=== PATIENT | female | born 1950 | race Caucasian/White ===

== ENCOUNTER 2020-01-19 00:55 | Outpatient (CLI) | payer MEDICARE, OTHER, SELFPAY ==
[2020-01-19 18:05] LABS: SARS-CoV-2 RNA PCR Negative
== END 2020-01-19 00:56 | disposition home or self-care (01) ==
LOC: ANHCOVIDDT 00:56
PROVIDERS: PCP Family Medicine; Visit Provider Internal Medicine Cardiovascular Disease
DX: Z01.812 Encounter for preprocedural laboratory examination (principal); Z11.59 Encounter for screening for other viral diseases
CPT/HCPCS: 87635; C9803; U0003

== ENCOUNTER 2020-01-22 11:25 | Outpatient (CLI) | payer MEDICARE, OTHER, SELFPAY ==
[2020-01-19 12:40] VITALS: BMI 37.8
--- NOTE | 2020-01-22 11:30 | ECG_ITS ---
Measurements Intervals [place] Rate: 71 P: 51 VA: 194 QRS: 3 QRSD: 94 T: 22 QT: 375 QTc: 410 Interpretive Statements SINUS RHYTHM BORDERLINE R WAVE PROGRESSION, ANTERIOR LEADS MINIMAL Q WAVES- INFERIOR LEADS BORDERLINE ECG Electronically Signed On 01-22-2020 13:29:10 CDT by Ed Turner D.O.
--- NOTE | 2020-01-22 11:30 | SUR.PREOP ---
ARRIVES TO [facility] AMB[facility] FROM OP REGISTRATION FOR SCHEDULED CARDIOVERSION W/ DR. PATHAK. DENIES CP OR SOB ON ARRIVAL. ORIENTED TO ROOM, PLAN OF CARE, PROCEDURE. PRE PROCEDURE EKG COMPLETED; EKG SHOWS SINUS RHYTHM. WILL NOTIFY DR. PATHAK.
--- NOTE | 2020-01-22 11:55 | SUR.PREOP ---
NOTIFIED DR. PATHAK OF EKG RESULTS SHOWING SINUS RHYTHM. STATES OK FOR PT. TO GO HOME, BUT TO KEEP ALREADY SCHEDULED FOLLOW UP APPOINTMENT WITH HIM ON FEBRUARY 15, 2020 AT 1345, CONTINUE CURRENT MEDICATIONS INCLUDING ELIQUIS AND METOPROLOL. THIS RN NOTIFIED PT. OF SUCH AND REVIEWED HOW TO CHECK RADIAL PULSE TO CHECK HEART RATE AND REGULARITY. PT. VOICED UNDERSTANDING AND DEMONSTRATED PULSE CHECK.
--- NOTE | 2020-01-22 12:15 | SUR.PREOP ---
CARDIOVERSION CANCELLED DUE TO PT. BEING IN SINUS RHYTHM ON INITIAL EKG CHECK. PT. SENT HOME. OUT AMBULATORY WITHOUT C/O.
== END 2020-01-22 11:26 | disposition home or self-care (01) ==
PROVIDERS: PCP Family Medicine; Visit Provider Internal Medicine Cardiovascular Disease
PROC: 5A2204Z Restoration of Cardiac Rhythm, Single (ICD-10-PCS; principal; 2020-01-22 13:00)
DX: Z01.818 Encounter for other preprocedural examination (principal); R94.31 Abnormal electrocardiogram [ECG] [EKG]
CPT/HCPCS: 93005; 99211; G0463

== ENCOUNTER 2020-03-26 06:32 | Outpatient (CLI) | payer MEDICARE, OTHER, SELFPAY ==
--- NOTE | 2020-03-29 00:42 | SLEEP_ITS ---
Home Sleep Test DATE OF STUDY: 03/26/2020 ORDERING PHYSICIAN: Dr. Rikki Rajan. REASON FOR THE TEST: Hypersomnia. HISTORY: This patient is a 70-year-old woman, 5 feet 4 inches tall, weighing 225 pounds with a body mass index of 38.6. She has complaints of loud snoring, sinus problems, which worsened when she lies down to go to sleep. She frequently snores and occasionally it is loud enough that others complain about it. She occasionally awakens at night with heartburn, belching, or coughing. She occasionally has trouble sleeping with a cold, occasionally gasps for breath at night, occasionally has breathing problems at night witnessed by others. She does not sweat excessively at night or notice her heart pounding excessively at night. She frequently falls asleep during the day, frequently involuntarily, never while driving. She does not fall asleep during physical effort. She does not have loss of muscle tone with strong emotion. She does not have daytime difficulties due to excessive sleepiness. She denies feeling paralyzed on waking or falling asleep and does not have vivid dreamlike scenes upon awakening or falling asleep. She is never afraid to go to sleep. She rarely has nightmares. She occasionally remembers her dreams, frequently has racing thoughts. She rarely feels sad or depressed. She occasionally has anxiety. She does not have muscular tension, notices parts of her body jerking and does not kick at night. She occasionally has crawly achy feelings in her legs. She occasionally has leg pain at night. She denies having morning jaw pain. She does not grind her teeth at night. She frequently is bothered by pain during the day, occasionally is awakened by pain at night. She frequently wakes up feeling stiff in the morning, rarely with sore achy muscles, occasionally with pain in the neck and spine. Normal bedtime is 2 a.m., taking a variable amount of time to fall asleep. She typically wakes once at night to go to the bathroom and goes back to sleep within 5 minutes. She does not have a fixed wake up time. She estimates somewhere between 4 and 7 hours of sleep at night. She sleeps with a cat in the bed. She does take naps. A short nap is not refreshing. She feels better in the evening than other times a day. MEDICAL COMORBIDITIES: Chronic anticoagulation, hypertension, diabetes, thyroid dysfunction, atrial fibrillation, hyperlipidemia. MEDICATIONS: 1. Levothyroxine 0.088 mg daily. 2. Amlodipine 5 mg a day. 3. Amitriptyline 25 mg a day. 4. Atorvastatin 10 mg a day. 5. Glimepiride 1 mg a day. 6. Metoprolol 25 mg b.i.d. 7. Eliquis 5 mg b.i.d. 8. Chlorthalidone 25 mg a day. 9. Lisinopril 40 mg a day. 10. Magnesium oxide 1 tablet twice a day. HABITS: Never smoked tobacco. She does drink tea and Pepsi. No alcohol. No recreational drugs. DESCRIPTION OF THE STUDY: On the Stanford Sleepiness Scale, the score is 10. This was conducted as an unattended type III portable home sleep test using 4-channel monitoring including respiratory effort channel, snoring channel, oxygen saturation channel, and heart rate channel. This study was scored using [facility] guidelines. The apnea-hypopnea index is 35. Oxygen desaturation index is 32. Lowest desaturation is 70%. She had 107 apneas which were all obstructive. She had 176 hypopneas. She had 2803 snoring episodes. She desaturated 256 times and spent 19 minutes or 4% of the study below 88% saturation. Heart rate ranged from 53 to 102. IMPRESSION: 1. This home sleep test shows evidence of severe obstructive sleep apnea syndrome, G47.33, with an AHI of 35, deep sustained desaturation 32 times per hour with a lowest desaturation of 70%, and 19 minutes spent below 88%. This patient is
== END 2020-03-26 06:33 | disposition home or self-care (01) ==
LOC: ANHCSM 15:24
PROVIDERS: PCP Family Medicine; Visit Provider Internal Medicine Cardiovascular Disease
DX: G47.10 Hypersomnia, unspecified (principal); I10 Essential (primary) hypertension
CPT/HCPCS: 95806

== ENCOUNTER 2020-11-28 12:05 | Outpatient (CLI) | payer MEDICARE, SELFPAY ==
[2020-11-28 12:39] LABS: Basophils Percent Auto 0.4 % (0.2-1.2); Eosinophils Absolute Auto 0.2 K/mm3 (0-0.3); Eosinophils Percent Auto 1.9 % (0-4.4); Immature Granulocyte Absolute 0.19 K/mm3 (0.00-0.031); Immature Granulocyte Percent A 1.7 % (0-0.5); Lymphocytes Absolute Auto 1.75 K/mm3 (0.9-3.2); Mean Corpuscular Hemoglobin 29.5 pg (26-34); Mean Corpuscular Volume 95.1 fl (80-100); Mean Platelet Volume 9.5 fl (7.4-10.4); Monocytes Absolute Auto 0.8 K/mm3 (0.1-0.6); Monocytes Percent Auto 7.4 % (2.6-8.5); Neutrophils Percent Auto 72.6 % (45.5-73.1); Platelet Count Result 227 k/mm3 (150-375); Red Blood Count 3.05 M/mm3 (4.2-5.4); Red Cell Distribution Width 12.1 % (11.5-14.5)
[2020-11-28 12:44] LABS: Add Urine Microscopic? YES; Appearance Urine Cloudy (Clear); Bacteria Urine Trace /hpf; Bilirubin Urine Negative (Negative); Blood Urine Negative (Negative); Color Urine Yellow (Yellow); Glucose Urine UA Negative (Negative); Ketones Urine Negative (Negative); Leukocyte Esterase Ur 3+ LEU/UL (NEGATIVE); Mucus Urine Rare /lpf; Nitrate Urine Negative (Negative); Protein Urine 1+ mg/dL (Negative); Specific Grav Ur 1.014 (1.001-1.035); Squamous Epithelial Cell Urine Many /hpf (Few); Urobilinogen Urine Negative mg/dL (<2.0); WBC Urine 51-75 /hpf (0-3)
== END 2020-11-28 12:06 | disposition home or self-care (01) ==
PROVIDERS: PCP Family Medicine; Visit Provider Physician Assistant
DX: M79.674 Pain in right toe(s) (principal); N39.0 Urinary tract infection, site not specified
CPT/HCPCS: 36415; 81001; 84550; 85025; 87086

== ENCOUNTER 2021-01-10 15:39 | Outpatient (CLI) | payer MEDICARE, SELFPAY ==
[2021-01-10 16:06] LABS: Basophils Absolute Auto 0.1 K/mm3 (0.0-0.1); Basophils Percent Auto 0.6 % (0.2-1.2); Eosinophils Absolute Auto 0.2 K/mm3 (0-0.3); Eosinophils Percent Auto 2.5 % (0-4.4); Hematocrit 31.1 % (37.0-47.0); Hemoglobin 9.9 g/dL (12.0-15.0); Immature Granulocyte Absolute 0.06 K/mm3 (0.00-0.031); Immature Granulocyte Percent A 0.7 % (0-0.5); Lymphocytes Absolute Auto 1.54 K/mm3 (0.9-3.2); Lymphocytes Percent Auto 18.3 % (18.3-44.2); Mean Corpuscular HGB Conc 31.8 g/dl (32-36); Mean Corpuscular Hemoglobin 30.4 pg (26-34); Mean Corpuscular Volume 95.4 fl (80-100); Mean Platelet Volume 10.1 fl (7.4-10.4); Monocytes Absolute Auto 0.5 K/mm3 (0.1-0.6); Monocytes Percent Auto 5.7 % (2.6-8.5); Neutrophils Absolute Auto 6.1 K/mm3 (1.3-6.7); Neutrophils Percent Auto 72.2 % (45.5-73.1); Platelet Count Result 205 k/mm3 (150-375); Red Blood Count 3.26 M/mm3 (4.2-5.4); White Blood Count 8.4 K/mm3 (4.5-10.0)
[2021-01-10 17:21] LABS: Folic Acid 6.1 ng/mL (2.76->20)
[2021-01-10 17:23] LABS: Iron 89 ug/dL (37-170)
[2021-01-10 17:36] LABS: Percent Iron Saturation 32 % (20-50)
== END 2021-01-10 15:40 | disposition home or self-care (01) ==
PROVIDERS: PCP Family Medicine; Visit Provider Physician Assistant
DX: D64.9 Anemia, unspecified (principal)
CPT/HCPCS: 36415; 82607; 82728; 82746; 83540; 83550; 85025

== ENCOUNTER 2021-09-03 12:02 | Outpatient (CLI) | payer MEDICARE, SELFPAY ==
--- NOTE | ~2021-09-03 | XR_ITS ---
EXAMINATION: XR hand RT min 3V EXAM DATE: 09/03/2021 12:27 INDICATION: M10.9 - Gout, pain right distal 3rd finger, r/o gouty tophi. TECHNIQUE: Right hand frontal, lateral and oblique projections obtained and reviewed. There is no pr ior study for comparison. FINDINGS: There is juxta-articular erosion at the proximal aspect of the right 3rd distal phalanx, co uld be from gout. There is moderate right 1st carpometacarpal and interphalangeal primary osteoarthri tis. Otherwise mild to moderate polyarticular interphalangeal osteoarthritis and metacarpal phalange al. There are cartilaginous calcifications at the 2nd, 3rd, 5th MCP joints, radiocarpal and triangular fi brocartilage regions. Chondrocalcinosis can be an age related finding, but with other possible etiolo gies including CPPD, parathyroid disorders, hemochromatosis, gout. IMPRESSION: 1. Right 3rd distal phalangeal erosion, another extra-articular and cartilaginous calcifications. Go ut can cause both these findings. 2. Polyarticular osteoarthritis. Reviewed, dictated and finalized at location G. OSITION MIXER IMPRESSION: 1. Right 3rd distal phalangeal erosion, another extra-articular and cartilagin ous calcifications. Gout can cause both these findings. 2. Polyarticular osteoarthritis.
== END 2021-09-03 12:03 | disposition home or self-care (01) ==
LOC: ANHIMG 12:10
PROVIDERS: PCP Family Medicine; Visit Provider Nurse Practitioner Family
DX: M10.9 Gout, unspecified (principal); M19.041 Primary osteoarthritis, right hand
CPT/HCPCS: 73130

== ENCOUNTER 2024-01-28 13:40 | Outpatient (CLI) | payer MEDICARE, SELFPAY ==
--- NOTE | ~2024-01-28 | MM_ITS ---
EXAMINATION: MM screening reginaldo BI w ramin HISTORY: Screening TECHNIQUE: Craniocaudal and mediolateral oblique 3-D tomosynthesis images were obtained and synthetic 2-D images were generated. CAD analysis was submitted and interpreted. COMPARISON: Comparison to multiple prior studies sequentially, with oldest reviewed study dated 08/2015. BREAST PARENCHYMAL COMPOSITION: Not dense: There are scattered areas of fibroglandular density. FINDINGS: There is no evidence of suspicious mass, calcification, or architectural distortion to sugg est malignancy in either breast. There has been no suspicious interval change. IMPRESSION: 1. No mammographic evidence of malignancy. 2. Recommend routine screening mammography in one year. BI-RADS Category 1: Negative Reviewed, dictated and finalized at location B.
== END 2024-01-28 13:41 | disposition home or self-care (01) ==
PROVIDERS: PCP Family Medicine; Visit Provider Family Medicine
DX: Z12.31 Encounter for screening mammogram for malignant neoplasm of breast (principal)
CPT/HCPCS: 77063; 77067

== ENCOUNTER 2024-08-08 15:35 | Outpatient (CLI) | payer MEDICARE, OTHER, SELFPAY ==
--- NOTE | ~2024-08-08 | XR_ITS ---
EXAMINATION: XR chest 2V 08/08/2024 15:59 INDICATION: Cough and shortness of breath PROCEDURE: 2 view chest COMPARISON: No prior studies for comparison. FINDINGS: The lungs are clear. There is a hiatal hernia. The cardiomediastinal silhouette is within n ormal limits. There are no pleural effusions. There is no pneumothorax suspected. IMPRESSION: 1: NO ACUTE CARDIOPULMONARY DISEASE. Reviewed, dictated and finalized at location A. ERCIAL SEWING INSTRUCTOR
--- OUTSIDE RECORDS SUMMARY | 2024-08-08 15:54 | XMS_ITS | Clinical Summary ---
Author Organization [facility] Address [address] [place] [id number] Phone Care Team Providers Care Quill Picking Machine Operator Name Role Phone Maxime Henning MD Primary Care Provider Allergies Active Allergy Reactions Criticality Noted Date Comments Sulfa Antibiotics Rash Low Medications Medication Sig Dispensed Refills Start Date End Date Status aspirin (ST KAYLI) 81 MG EC tablet 1 tab/cap qday 0 10/07/2016 Activ e glipiZIDE (GLUCOTROL) 5 MG tablet 1 tab/cap bid 0 10/20/2015 Active amLODIPine (NORVASC) 5 MG tablet 10/16/2019 Active atorvastatin (LIPITOR) 10 MG tablet 10/16/2019 Active chlorthalidone (HYGROTON) 25 MG tablet 10/16/2019 Active lisinopril (PRINIVIL,ZESTRIL) 40 MG tablet 10/16/2019 Active amitriptyline (ELAVIL) 25 MG tablet 10/16/2019 Active Cholecalciferol (VITAMIN D3) 25 MCG (1000 UT) capsule Take 1,000 Units by mouth daily Active apixaban (ELIQUIS) 5 MG tablet Take 5 mg by mouth 2 times daily Active magnesium oxide (MAG-OX) 400 MG tablet Take 400 mg by mouth 2 times daily 12/14/2019 Active glimepiride (AMARYL) 1 MG tablet TK 1 T PO QAM WITH BREAKFAST. 02/20/2020 Active levothyroxine (SYNTHROID) 88 MCG tablet TK 1 T PO D 03/06/2020 Active MAGnesium-Oxide 400 (241.3 Mg) MG tablet TK 1 T PO BID 03/27/2020 A ctive cinnamon 500 MG capsule Take 1,000 mg by mouth daily Active Basaglar KwikPen 100 UNIT/ML injection INJECT 10 UNIT (0.1 ML) SUB Q EVERY PM 08/06/2020 Active BD ULTRA-FINE PEN NEEDLES 29G X 12.7MM misc USE TO INJECT ONCE PER DAY 08/06/2020 Active furosemide (LASIX) 20 MG tablet TAKE 1 TABLET (20 MG TOTAL) BY MOUTH DAILY NEEDED (SWELLING) 10/23/2020 Active metoprolol tartrate (LOPRESSOR) 50 MG tablet Take 50 mg by mouth 2 (two) times a day 10/23/2020 Active Accu-Chek Coreen Plus test strip 03/14/2021 Active Febuxostat (ULORIC) 40 MG tablet Take 40 mg by mouth 1 (one) time each day 01/01/2022 Active ondansetron (ZOFRAN) 4 MG tablet TAKE 1 TABLET BY MOUTH EVERY 6 HOURS NEEDED FOR NAUSEA OR VOMITING 11/27/2021 Active Ozempic, 0.25 or 0.5 MG/DOSE, 2 MG/1.5ML solution pen-injector ADMINISTER 0.5 MG UNDER THE SKIN WEEKLY FOR 4 DOSES 02/04/2022 Active Active Problems Problem Noted Date Diagnosed Date Morbid (severe) obesity due to excess calories 0 11/04/2021 Obstructive sleep apnea syndrome 06/20/2020 Hypomagnesemia 02/15/2020 Long-term current use of anticoagulant 0 Atrial fibrillation 12/13/2019 Diabetic dyslipidemia associ ated with type 2 diabetes mellitus 12/13/2019 Hypertensive disorder 12/13/2019 Chronic kidney disease, stage 3 (moderate) 10/19 Hypertensive chronic kidney disease with stage 1 through stage 4 chronic kidney disease, or unspecified chronic kidney disease 10/20/2015 Type 2 diabetes mellitus wit h diabetic chronic kidney disease 10/20/2015 Fibromyalgia 10/20/2015 Other hyperlipidemia 10/20/2015 Overview (09/24/2018): Converted unresolved ICD9, potential mismatch. Other hyperlipidemia 10/20/2015 Overview (12/18/2020): Converted unresolved ICD9, potential mismatch. Diarrhea 08/17/2013 Hematochezia 12/02/2012 Hip pain 11/08/2012 Knee pain 11/08/2012 Gastroesophageal reflux disease 02/11/2012 Hypothyroidism 02/11/2012 Immunizations Name Administration Dates Next Due Influenza TIV (IM) 05/20/2016 Pneumococcal Conjugate 13-Valent 06/05/2018 Sars-cov-2, Unspecified 09/03/2020 Family History Medical History Relation Comments Coronary arteriosclerosis Father Heart disease Father Hypertensive disorder Father Malignant neoplastic disease Father Cerebrovascular accident Sibling Diabetes mellitus Sibling Hypertensive disorder Sibling Malignant neoplastic disease Sibling Kidney disease Neg Hx Kidney stone Neg Hx Relation Status Comments Father Sibling Social History Tobacco Use Types Packs/Day Years Used Date Smoking Tobacco: Never Smokeless Tobacco: Never Alcohol Use Standard Drinks/Week Comments No 0 (1 standard drink = 0.6 oz pur e alcohol) Sex and Gender Information Value Date Recorded Sex Assigned at Not on file Gender Identity Not on file Sexual Orientation Not on file Last Filed Vital Signs Vital Sign Reading Time Taken Comments Blood Pressure 136/72 02/18/2022 3:18 PM CDT Pulse - - Temperature 36.2 ??C (97.2 ??F) 02/18/2022 3:18 PM CD T Respiratory Rate 18 02/18/2022 3:18 PM CDT Oxygen Saturation - - Inhaled Oxygen Concentration - - Weight 102 kg (225 lb) 02/18/2022 3:18 PM CDT Height 160 cm (5' 3 ) 02/18/2022 3:18 PM CDT Body Mass Index 39.86 02/18/2022 3:18 PM CDT Plan of Treatment Health Maintenance Due Date Last Done Comments Pneumococcal PPSV23/PCV13 65 + Years / Low and Medium Risk (2 of 3 - PPSV23 or PCV20) 06/05/2019 06/05/2018 Influenza Vaccine (#1) 2024 05/20/2016 Care Teams Quill Picking Machine Operator Relationship Specialty Start Date End Date Maxime Henning MD [address] [facility] [address] [place] [id number] PCP - General Internal Medicine 11/15/18
--- OUTSIDE RECORDS SUMMARY | 2024-08-08 15:55 | XMS_ITS | Referral Summary ---
Author Organization [facility] [place] [address] Address [address] [place] [address] Care Team Providers Care Credit Collections Specialist Name Role Phone Maxime Henning MD Primary Care Provider Allergies Active Allergy Reactions Criticality Noted Date Comments Sulfa (Sulfonamide Antibiotics) Rash Medium 08/2011 Medications glimepiride (AMARYL) 1 mg tabletIndications:t ype 2 diabetes mellitus Take 2 tablets (2 mg total) by mouth daily before breakfast Active atorvastatin (LIPITOR) 10 mg tablet Take 1 tablet (10 mg total) by mouth daily Active esomeprazole DR (NexIUM) 20 mg capsule Take 1 capsule (20 mg total) by mouth daily before breakfast Active amitriptyline (ELAVIL) 25 mg tablet TK 1 T PO HS 01/02/20 20 Active cinnamon bark 500 mg capsule Take 2 capsules (1,000 mg total) by mouth daily Active echinacea 400 mg capsule Take 2 capsules by mouth daily Active ascorbic acid (VITAMIN C) 250 mg tablet Take 1 tablet (250 mg total) by mouth daily Active Eliquis 5 mg tabletIndications:P aroxysmal atrial fibrillation (CMS/HCC) (HCC),Chronic anticoagulation TAKE 1 TABLET BY MOUTH TWICE A DAY 180 tablet 3 08/14/19 21 Active BASAGLAR 100 unit/mL (3 mL) pen for injection 10/14/19 21 Active furosemide (LASIX) 20 mg tabletIndications:H ypertension associated with diabetes (HCC) TAKE 1 TABLET BY MOUTH EVERY DAY NEEDED FOR SWELLING 90 tablet 2 07/01/20 21 Active febuxostat (ULORIC) 40 mg tablet Take 1 tablet (40 mg total) by mouth daily 01/02/20 22 Active Ozempic 0.25 mg or 0.5 mg(2 mg/1.5 mL) pen injector injection ADMINISTER 0.25 MG UNDER THE SKIN WEEKLY FOR 4 DOSES 12/26/19 22 Active metoprolol tartrate (LOPRESSOR) 50 mg immediate release tabletIndications:P aroxysmal atrial fibrillation (CMS/HCC) (HCC) Take 1 tablet (50 mg total) by mouth 2 (two) times a day 180 tablet 3 01/07/20 22 Active levothyroxine (SYNTHROID) 100 mcg tablet Take 1 tablet (100 mcg total) by mouth daily 12/17/19 23 Active UNABLE TO FIND Take 1 each by mouth 2 (two) times a day Ginko Biloba 3000 mg Active dilTIAZem CD 120 mg 24 hr capsuleIndications: Persistent atrial fibrillation (HCC) TAKE 1 CAPSULE(120 MG) BY MOUTH DAILY 30 capsule 11 03/27/20 24 Active Active Problems Problem Noted Date Diagnosed Date Syncope and collapse 09/09/2023 Morbid (severe) obesity due to excess calories 0 11/04/2021 LUZ MARIA (obstructive sleep apnea) 06/20/2020 Chronic anticoagulation 02/15/2020 Hypomagnesemia 02/15/2020 Gastroesophageal reflux disease 12/13/2019 Hyperlipidemia associated with type 2 diabetes m ellitus 12/13/2019 Hypertension associated with diabetes 12/13/2019 Persistent atrial fibrillation 12/13/2019 Type 2 diabetes mellitus wit h stage 4 chronic kidney disease and hypertension (CMS/HCC) 12/13/2019 Social History Tobacco Use Types Packs/Day Years Used Date Smoking Tobacco: Never Smokeless Tobacco: Current Tobacco Cessation:Ready to Q uit: Not Asked; Counseling Given: Not Answered Alcohol Use Standard Drinks/Week Comments Never 0 (1 standard drink = 0.6 oz pur e alcohol) AUDIT-C Answer Date Recorded Q1: How often do you have a drink containing alc ohol? Never 12/13/2019 Average Number of Drinks Not on file 020 Frequency of Binge Drinking Not on file 09/2019 PHQ-2 Answer Date Recorded PHQ-2 Total Score (If total score is 3 or more points, staff should administer the PHQ-9) 0 12/13/2019 Personal Safety Answer Date Recorded Getting School Help Needed Not on file 07/14 Comments Unknown Sex and Gender Information Value Date Recorded Sex Assigned at Not on file Legal Sex Female 9:39 AM SAFETY CONSULTANT Gender Identity Not on file Sexual Orientation Not on file Last Filed Vital Signs Vital Sign Reading Time Taken Comments Blood Pressure 126/68 03/17/2024 10:53 AM CDT Pulse 80 03/17/2024 10:53 AM CDT Temperature 35.8 ??C (96.4 ??F) 12/13/2019 11:58 AM C DT Respiratory Rate - - Oxygen Saturation 96% 03/17/2024 10:53 AM CDT Inhaled Oxygen Concentration - - Weight 84.8 kg (187 lb) 03/17/2024 10:53 AM CDT Height 162.6 cm (5' 4 ) 03/17/2024 10:53 AM CDT Body Mass Index 32.1 03/17/2024 10:53 AM CDT Plan of Treatment Not on file Procedures Procedure Name Priority Date/Time Associated Diagnosis Comments POCT LIPID PANEL Routine 09/09/2023 1:20 PM SAFETY CONSULTANT Hyperlipidemia associated with type 2 diabetes mellitus (HCC) from Last 3 Months or Most Recently Relevant to Health Maintenance Results * POCT lipid panel (09/09/2023 1:20 PM SAFETY CONSULTANT) Cholesterol, POC 105 mg/dL HDL, POC 31 mg/dL Triglycerides, POC 119 mg/dL LDL Cholesterol POC 51 mg/dL Chol/HDL Ratio, POC 1.7 Non-HDL Cholesterol, POC 75 mg/dL Cholesterol Total, POC 105 mg/dL Capillary blood 09/09/2023 1 :20 PM SAFETY CONSULTANT us Rikki Rajan MD POINT OF CARE TEST ORDERA BLES Final Result from Last 3 Months or Most Recently Relevant to Health Maintenance Insurance [id number] Member Subscriber Plan / Payer (Ef fective 2020-Present) Name:Yesica Fatima Relation to Subscriber:Self Name:Yesica Fatima Payer ID:[id number] (NAIC) Group ID:[id number] Type:[id number] OTHER Address: [address] [place] [id number] MEDICARE Care Teams Credit Collections Specialist Relationship Specialty Start Date End Date Maxime Henning MD [address] [facility] [address] [place] [address] PCP - General Family Medicine 12/11/19
--- OUTSIDE RECORDS SUMMARY | 2024-08-08 15:55 | XMS_ITS | Clinical Summary ---
Author Organization [facility] [place] [address] Address [address] [place] [address] Care Team Providers Care Optical Lens Manufacturing Tech Name Role Phone Maxime Henning MD Primary [...] chronic kidney disease and hypertension (CMS/HCC) 12/13/2019 Surgical History Surgery Date Site/Laterality Comments HYSTERECTOMY 08/10/1992 N/A Medical History Medical History Date Comments Atrial fibrillation (CMS/HCC) (HCC) Hypertension Hyperlipidemia Family History Medical History Relation Name Comments Cancer Brother Heart attack Father Diabetes Maternal Grandfather No Known Problems Maternal Grandmother Heart disease Mother Relation Name Status Comments Brother Father Maternal Grandfather Maternal Grandmother Mother Alive Social History Tobacco Use Types Packs/Day Years [...] on file Legal Sex Female 9:39 AM 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 Gender Identity Not on file Sexual Orientation Not on file Obstetrics History Last Filed Vital Signs Vital Sign Reading [...] 03/17/2024 10:53 AM CDT Plan of Treatment Health Maintenance Due Date Last Done Comments Albumin Creatinine Ratio, Urine 1950 Breast Cancer Screening-Mammogram 1950 Colon Cancer Screening-Colonoscopy 1950 Fall Risk Assessment 1950 Hemoglobin A1C 1950 Hepatitis C Screening 1950 Osteoporosis Screening-Bone Density Scan 1950 eGFR 1950 Dilated Eye Exam 1950 Foot Exam 1950 DTaP/Tdap/Td Vaccine (1 - Tdap) 1961 Hepatitis B Screening 1968 Zoster Vaccine (1 of 2) 2000 Well Visit 65+ 2015 Pneumococcal vaccine 65+ (2 of 2 - PPSV23 or PCV20) 07/31/2018 06/05/2018 Depression Screening 12/12/2020 12/13/2019 Covid-19 Vaccine (5 - 2023-2 5 season) 2024 07/22/2021, 12/07/2020, 11/09/2020, Additional history exists Influenza Vaccine (#1) 2024 05/20/2016, 2015 Lipid Panel 09/08/2024 09/09/2023, 08/12, 04/16/2021, Additional history exists Procedures Procedure Name Priority Date/Time Associated Diagnosis Comments POCT LIPID PANEL Routine 09/09/2023 1:20 PM 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 Hyperlipidemia associated with type 2 diabetes mellitus (HCC) from Last 3 Months or Most Recently Relevant to Health Maintenance Results * POCT lipid panel (09/09/2023 1:20 PM 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) Cholesterol, POC 105 mg/dL HDL, POC 31 mg/dL Triglycerides, POC 119 mg/dL LDL Cholesterol POC 51 mg/dL Chol/HDL Ratio, POC 1.7 Non-HDL Cholesterol, POC 75 mg/dL Cholesterol Total, POC 105 mg/dL Capillary blood 09/09/2023 1 :20 PM 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 us Rikki Rajan MD POINT OF CARE TEST ORDERA BLES Final Result from Last 3 Months or Most Recently Relevant to Health Maintenance Insurance evelyn [address] [place] [id number] [facility] MEDICARE Care Teams Optical Lens Manufacturing Tech Relationship Specialty Start Date End Date Maxime Henning MD [address] [facility] [address] [place] [address] PCP - General Family Medicine 12/11/19
--- OUTSIDE RECORDS SUMMARY | 2024-08-08 15:55 | XMS_ITS | Clinical Summary ---
Author Organization [facility] Address [address] [place] [address]. [place] [address] [place] [address] Care Team Providers Care Histologist Technologist Name Role Phone Maxime Henning MD Primary Care Provider [phone] Allergies Active Allergy Reactions Criticality Noted Date Comments Sulfa Antibiotics Unknown 02/11/2012 Medications amitriptyline 25 MG tablet TK 1 T PO D HS 0 Active aspirin EC (ASPIRIN EC) 81 MG tablet 7 Active atorvastatin 10 MG tablet 8 Active chlorthalidone 25 MG tablet Take 25 mg by mouth daily. 0 Active Cholecalciferol (VITAMIN D3) 50 MCG (1999) Tab Active glimepiride 1 MG tablet 6 Active glipiZIDE 5 MG tablet 3 Active Glucose Blood (ACCU-CHEK SMARTVIEW) test strip Accu-Chek SmartView In Vitro StripUSE DAILY DIRECTED TO TEST BLOOD SUGAR [id number] Aguiar 3 Active hydroCHLOROthia zide 25 MG tablet Take 1 tablet by mouth daily. 3 Active levothyroxine 88 MCG tablet Take 88 mcg by mouth daily. 0 Active lisinopril 40 MG tablet 3 Active metFORMIN 500 MG tablet Take 2 tablets by mouth 2 (two) times daily. 3 Active Multiple Vitamins tablet Acti ve [place] 3 1000 MG Cap Take by mouth 3 (three) times daily. Active metoprolol tartrate 25 MG tablet Take 25 mg by mouth 2 (two) times daily. Active esomeprazole 20 MG capsule Take 20 mg by mouth daily. Active apixaban 5 MG tablet Take 5 mg by mouth 2 (two) times daily. Active amLODIPine 5 MG tablet 0 Active Active Problems Problem Noted Date Diagnosed Date Chronic kidney disease, stag e 3 (moderate) ([facility]) 10/20/2015 Hypertensive chronic kidney disease with stage 1 through stage 4 chronic kidney disease, or unspecified chronic kidney disease 10/20/2015 Other hyperlipidemia 10/20/2015 Overview (11/30/2019): Converted unresolved ICD9, potential mismatch. Type 2 diabetes mellitus wit h chronic kidney disease ([facility]) 10/20/2015 Diarrhea 08/17/2013 Hematochezia 12/02/2012 Knee pain 11/08/2012 Joint pain, hip 11/08/2012 Sciatica 10/14/2012 Type 1 diabetes mellitus ([facility]) 10/14 Esophageal reflux 02/11/2012 Fibromyalgia 02/11/2012 Hypertension 02/11/2012 Hypothyroidism 02/11/2012 Diabetes mellitus, controlled ([facility]) 02/11/2012 Resolved Problems Problem Noted Date Diagnosed Date Resolved Date Encounter for preventive health examination 02/11/2012 03/22/2020 Family History Medical History Relation Comments Stroke Brother Heart Disease Father Diabetes Maternal Grandfather Alzheimers Mother Relation Status Comments Brother Father Maternal Grandfather Mother Alive Social History Tobacco Use Types Packs/Day Years Used Date Smoking Tobacco: Never Smokeless Tobacco: Never Alcohol Use Standard Drinks/Week Comments Never 0 (1 standard drink = 0.6 oz pur e alcohol) AUDIT-C Answer Date Recorded Frequency of Alcohol Consumption Never 11/20/2019 Average Number of Drinks Not on file 020 Frequency of Binge Drinking Not on file 11/09 Comments Unknown Sex and Gender Information Value Date Recorded Sex Assigned at Female 11/20/2019 3:50 PM CDT Legal Sex Female 7:20 PM CDT Gender Identity Female 11/20/2019 3:50 PM CDT Sexual Orientation Straight 11/20/2019 3: 50 PM CDT Last Filed Vital Signs Vital Sign Reading Time Taken Comments Blood Pressure 136/64 12/14/2019 11:42 AM CDT Pulse 75 08/29/2013 4:18 PM CHILD AND ADOLESCENT PSYCHIATRIST Temperature - - Respiratory Rate - - Oxygen Saturation - - Inhaled Oxygen Concentration - - Weight 105.2 kg (232 lb) 12/14/2019 11:42 AM CDT Height 162.6 cm (5' 4 ) 12/14/2019 11:42 AM CDT Body Mass Index 39.82 12/14/2019 11:42 AM CDT Plan of Treatment Health Maintenance Due Date Last Done Comments Colorectal Cancer Screening Colonoscopy (10 Years) 1950 Kidney Health Evaluation 1950 Lipid Panel 1950 Diabetes: Retinopathy Eye Exam 1968 Hepatitis C 1968 DTaP, Tdap and Td Vaccines ( 1 - Tdap) 1969 Mammogram Screening 1990 Zoster Vaccines (1 of 2) 2000 RSV Immunization or 60+ Years (1 - Risk 60-74 years 1-dose series) 2010 Hemoglobin A1C 02/20/2013 08/23/2012 Annual Medicare Wellness Visit 2015 Dexa Scan (General) 2015 Pneumococcal Vaccine: 65+ Ye ars (2 of 2 - PPSV23 or PCV20) 07/31/2018 06/05/2018 COVID-19 Vaccine ( - 2023-2 5 season) 2024 Influenza Adult (#1) 2024 05/20/2016 Meningococcal B Vaccine Aged Out No l onger eligible based on patient's age to complete this topic Meningococcal Vaccine Aged Out No ni alyssa eligible based on patient's age to complete this topic RSV Immunizations Under 20 Months Aged Out No longer eligible based on patient's age to complete this topic Procedures Procedure Name Priority Date/Time Associated Diagnosis Comments HEMOGLOBIN, GLYCOSYLATED Routine 08/23/2012 8:45 AM CHILD AND ADOLESCENT PSYCHIATRIST from Last 3 Months or Most Recently Relevant to Health Maintenance Results * (ABNORMAL) HEMOGLOBIN, GLYCOSYLATED (08/23/2012 8:45 AM CHILD AND ADOLESCENT PSYCHIATRIST) HGB A1C 7.8 ?? INCREASED RISK OF DIABETES <5.7% ?NON-DIABETES 5.7-6.4% INCREASED RISK FOR FUTURE DIABETES > OR = 6.5 CONSISTENT WITH DIABETES ?? STANDARDS OF MEDICAL CARE IN DIABETES-2009 DIABETES CARE, 33(SUPP 1): S1-S61,2009 (H) <5.7 % [employer] TO EPIC CONVERSION 08/23/2012 8:45 AM CHILD AND ADOLESCENT PSYCHIATRIST 08/23/2012 8:45 AM CHILD AND ADOLESCENT PSYCHIATRIST Narrative [employer] TO EPIC CONVERSION - 08/23/2012 8:53 AM CHILD AND ADOLESCENT PSYCHIATRIST Result Communication: Call patient with results Russell Reinoso MD LABORATORY Final Result [employer] TO EPIC CONVERSION from Last 3 Months or Most Recently Relevant to Health Maintenance Insurance [facility] Care Teams Histologist Technologist Relationship Specialty Start Date End Date Maxime Henning MD [address] [place] [address] PCP - General FAMILY PRACTICE 11/20/19
--- OUTSIDE RECORDS SUMMARY | 2024-08-08 15:55 | XMS_ITS | Encounter Summary ---
Author Organization [facility] Address [address] [place] [address]. [place], [place] [address] [place] [address] Care Team Providers Care Cobbler Sole Name Role Phone Maxime Henning MD Primary Care Provider [phone] Encounter Details Date Type Department Care Team (Latest Contact Info) Description 05/17/2018 Abstract [facility] Medical Group , Generic MD Araceli Social History Tobacco Use Types Packs/Day Years Used Date Smoking Tobacco: Never Assessed Comments Unknown Sex and Gender Information Value Date Recorded Sex Assigned at Female 11/20/2019 3:50 PM CDT Legal Sex Female 7:20 PM CDT Gender Identity Female 11/20/2019 3:50 PM CDT Sexual Orientation Straight 11/20/2019 3: 50 PM CDT documented as of this encounter Plan of Treatment Not on file documented as of this encounter Visit Diagnoses Not on filedocumented in this encounter Care Teams Cobbler Sole Relationship Specialty Start Date End Date Maxime Henning MD [address] [facility] [address] [place] [address] PCP - General FAMILY PRACTICE 11/20/19 documented as of this encounter
[2024-08-08 17:21] LABS: Influenza A QL RT-PCR Positive (Negative); Influenza B QL RT-PCR Negative (Negative); RSV RNA, RT-PCR Negative (Negative); SARS-CoV-2 RNA PCR Positive (Negative)
== END 2024-08-08 15:36 | disposition home or self-care (01) ==
PROVIDERS: PCP Family Medicine; Visit Provider Family Medicine
DX: R05.9 Cough, unspecified (principal); Z20.822 Contact with and (suspected) exposure to COVID-19
CPT/HCPCS: 71046; 87637

== ENCOUNTER 2024-09-15 21:12 | Emergency (ER) | payer MEDICARE, SELFPAY ==
--- NOTE | ~2024-09-15 | CT_ITS ---
CT cervical spine wo con Ordering provider: Abdulaziz Barber History: . glf, +blood thinners . Comparison: None. Technique: CT of the cervical spine was performed without contrast. Sagittal and coronal reformatted images were also obtained and reviewed. Automated exposure control and iterative reconstruction sharee hnique were employed. The dose-length product was 331.11 mGy-cm. FINDINGS: VERTEBRAE: No subluxation or acute fracture. The occipital condyles are intact. DISC SPACES: Narrowing of the disc C5-C6 and C6-C7. Multilevel facet joint disease. Narrowing of the left foramina at the level of C2-C3, C3-C4, bilaterally at C4-C5, C5-C6 and C6-C7. PARASPINOUS SOFT TISSUES: Normal. Ossification of the ligamenta flava is seen at the level of C2-C3 a nd C6-C7. Bilateral carotid calcifications. IMPRESSION: No acute osseous abnormality cervical spine. Reviewed, dictated and finalized at location A. BOARD PRESS OPERATOR
--- NOTE | ~2024-09-15 | CT_ITS ---
CT brain wo con Ordering provider: Abdulaziz Barber History: 74 years Female with . glf, +blood thinners . Comparison: September 15, 2016 Technique: CT of the head without contrast. Radiation reduction technique utilized.The dose-length product was 681 mGy-cm. FINDINGS: BRAIN PARENCHYMA AND CSF SPACES: Mild leukoaraiosis and diffuse cortical atrophy. Mild atheromatous d isease. No midline shift, mass effect or hemorrhage. The brain parenchyma and CSF spaces are otherwi se normal. VISUALIZED PARANASAL SINUSES: Right maxillary sinus. Minimal mucosal thickening of the left maxillary sinus. Bilateral ethmoid sinus disease. Otherwise, Well aerated. MASTOIDS: Left mastoid air cells effusion. BONES: The bones appear intact. SOFT TISSUES: Visualized nasopharynx is normal. Hematoma is seen in the right frontal area extending over the right orbit. Otherwise, Superficial soft tissues are normal. IMPRESSION: No acute intracranial findings. Reviewed, dictated and finalized at location A. TUBE MACHINE TENDER
--- NOTE | ~2024-09-15 | CT_ITS ---
EXAMINATION: CT facial bones wo con DATE: 09/16/2024 01:09 INDICATION: Head injury. Right periorbital hematoma. TECHNIQUE: Computed tomography (CT) of the facial bones and maxillofacial region was performed withou t intravenous contrast. Automated exposure control and iterative reconstruction technique were employ ed. The dose-length product was 683.15 mGy-cm. COMPARISON: Head CT 09/15/2016 FINDINGS: There is right periorbital soft tissue swelling. There are likely changes of left ocular le ns replacement surgery. There is mucosal thickening in the paranasal sinuses. There is rightward tirso ation of the nasal septum. No acute fracture. 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 There is a left mastoid effusion. IMPRESSION: 1. No acute fracture. Reviewed, dictated and finalized at location A. WALL HEADGATE OPERATOR IMPRESSION: 1. No acute fracture.
--- NOTE | ~2024-09-15 | XR_ITS ---
XR wrist RT 2V Ordering provider: Abdulaziz Barber MD History: . injury . Comparison: None. FINDINGS: BONES: Small bony fragment near to the ulnar styloid which is most likely chronic fracture. Bony frag ment seen posteriorly which may indicate triquetral fracture. No definite scaphoid fracture. JOINT SPACES: Osteoarthritic changes of the first carpometacarpal joint. Narrowing of the radiocarpal joint. SOFT TISSUES: Normal. IMPRESSION: Old fracture of the ulnar styloid. Possible fracture in the triquetral bone. Follow-up advised. Polyarticular osteoarthritic changes Reviewed, dictated and finalized at location A. TAL PRODUCTION ARTIST
--- OUTSIDE RECORDS SUMMARY | 2024-09-15 21:15 | XMS_ITS | Referral Summary ---
Author Organization [facility] [address] Address [address] [place] [address] Care Team Providers Care Substation Operator Automatic Name Role Phone Maxime Henning MD Primary [...] Eliquis 5 mg tabletIndications:P aroxysmal atrial fibrillation (HCC),Chronic anticoagulation TAKE 1 TABLET BY MOUTH TWICE A DAY 180 tablet 3 08/14/19 21 Active BASAGLAR 100 unit/mL (3 mL) pen for injection 10/14/19 21 Active furosemide (LASIX) 20 mg tabletIndications:H ypertension associated with diabetes (HCC) TAKE 1 TABLET BY MOUTH EVERY DAY NEEDED FOR SWELLING 90 tablet 2 01/10/20 21 Active febuxostat (ULORIC) 40 mg tablet Take 1 tablet (40 mg total) by mouth daily 01/02/20 22 Active Ozempic 0.25 mg or 0.5 mg(2 mg/1.5 mL) pen injector injection ADMINISTER 0.25 MG UNDER THE SKIN WEEKLY FOR 4 DOSES 12/26/19 22 Active metoprolol tartrate (LOPRESSOR) 50 mg immediate release tabletIndications:P aroxysmal atrial fibrillation (HCC) Take 1 tablet (50 mg total) [...] stage 4 chronic kidney disease and hypertension 12/13/2019 Social History Tobacco Use Types Packs/Day [...] on file Legal Sex Female 9:39 AM TOOL MAINTENANCE TECHNICIAN Gender Identity Not on file Sexual Orientation Not on file Last Filed Vital Signs Vital Sign Reading Time Taken Comments Blood Pressure 126/68 03/17/2024 10:53 AM CDT Pulse 80 03/17/2024 10:53 AM CDT Temperature 35.8 C (96.4 F) 12/13/2019 11:58 AM CDT Respiratory Rate - - Oxygen Saturation 96% [...] POCT LIPID PANEL Routine 09/09/2023 1:20 PM TOOL MAINTENANCE TECHNICIAN Hyperlipidemia associated with type 2 diabetes mellitus (HCC) from Last 3 Months or Most Recently Relevant to Health Maintenance Results * POCT lipid panel (09/09/2023 1:20 PM TOOL MAINTENANCE TECHNICIAN) Cholesterol, POC 105 mg/dL HDL, POC 31 mg/dL Triglycerides, POC 119 mg/dL LDL Cholesterol POC 51 mg/dL Chol/HDL Ratio, POC 1.7 Non-HDL Cholesterol, POC 75 mg/dL Cholesterol Total, POC 105 mg/dL Capillary blood 09/09/2023 1 :20 PM TOOL MAINTENANCE TECHNICIAN us Rikki Rajan MD POINT OF CARE TEST ORDERA BLES Final Result from Last 3 Months or Most Recently Relevant to Health Maintenance Insurance [employer] Care Teams Substation Operator Automatic Relationship Specialty Start Date End Date Maxime Henning MD [address] [facility] [address] [place] [address] PCP - General Family Medicine 12/11/19
--- OUTSIDE RECORDS SUMMARY | 2024-09-15 21:15 | XMS_ITS | Clinical Summary ---
Author Organization [facility] [address] Address [address] [place] [address] Care Team Providers Care Lumber Planer Name Role Phone Maxime Henning MD Primary [...] 4 chronic kidney disease and hypertension 12/13/2019 Surgical History Surgery Date Site/Laterality Comments HYSTERECTOMY 08/10/1992 N/A Medical History Medical History Date Comments Atrial fibrillation (HCC) Hypertension Hyperlipidemia Family History Medical History [...] on file Legal Sex Female 9:39 AM FIRE AND EXPLOSION INVESTIGATOR Gender Identity Not on file Sexual Orientation [...] Pneumococcal vaccine 65+ (2 of 2 - PPSV23) 07/31/2018 06/05/2018 Depression Screening 12/12/2020 12/13/2019 Covid-19 Vaccine (5 - 2023-2 5 season) 2024 07/22/2021, 12/07/2020, 11/09/2020, Additional history exists Influenza Vaccine (#1) 2024 05/20/2016, 2015 Lipid Panel 09/08/2024 09/09/2023, 08/12, 04/16/2021, Additional history exists Procedures Procedure Name Priority Date/Time Associated Diagnosis Comments POCT LIPID PANEL Routine 09/09/2023 1:20 PM FIRE AND EXPLOSION INVESTIGATOR Hyperlipidemia associated with type 2 diabetes mellitus (HCC) from Last 3 Months or Most Recently Relevant to Health Maintenance Results * POCT lipid panel (09/09/2023 1:20 PM FIRE AND EXPLOSION INVESTIGATOR) Cholesterol, POC 105 mg/dL HDL, POC 31 mg/dL Triglycerides, POC 119 mg/dL LDL Cholesterol POC 51 mg/dL Chol/HDL Ratio, POC 1.7 Non-HDL Cholesterol, POC 75 mg/dL Cholesterol Total, POC 105 mg/dL Capillary blood 09/09/2023 1 :20 PM FIRE AND EXPLOSION INVESTIGATOR us Rikki Rajan MD POINT OF CARE TEST ORDERA BLES Final Result from Last 3 Months or Most Recently Relevant to Health Maintenance Insurance [facility] MEDICARE Address: [facility] [address] [place] [address] [place] [phone] Care Teams Lumber Planer Relationship Specialty Start Date End Date Maxime Henning MD [address] [facility] [address] [place] [address] PCP - General Family Medicine 12/11/19
--- OUTSIDE RECORDS SUMMARY | 2024-09-15 21:15 | XMS_ITS | Clinical Summary ---
Author Organization [facility] Address [address] [place] [place] [address] Phone Care Team Providers Care Work Study Student Name Role Phone Maxime Henning MD Primary Care Provider [phone] Allergies Active Allergy Reactions Criticality Noted Date [...] PM CDT Pulse - - Temperature 36.2 C (97.2 F) 02/18/2022 3:18 PM CDT Respiratory Rate 18 02/18/2022 3:18 PM CDT [...] Influenza Vaccine (#1) 2024 05/20/2016 Care Teams Work Study Student Relationship Specialty Start Date End Date Maxime Henning MD [address] [place] [address] PCP - General Internal Medicine 11/15/18
--- OUTSIDE RECORDS SUMMARY | 2024-09-15 21:15 | XMS_ITS | Encounter Summary ---
Author Organization [facility] Address [address] [place] [address] Care Team Providers Care Hospitalist Program Director Name Role Phone Maxime Henning MD Primary Care Provider [phone] Encounter Details Date Type Department Care Team (Latest Contact Info) Description 05/17/2018 Abstract [facility] Medical Group , Generic Conversion, Social History Tobacco Use Types Packs/Day Years [...] on filedocumented in this encounter Care Teams Hospitalist Program Director Relationship Specialty Start Date End Date Maxime Henning MD [address] [facility] [address] [place] [address] PCP - General FAMILY PRACTICE 11/20/19 documented as of this encounter
--- OUTSIDE RECORDS SUMMARY | 2024-09-15 21:15 | XMS_ITS | Clinical Summary ---
Author Organization [facility] Address [address] [place] [address] Care Team Providers Care Contour Path Tape Mill Operator Name Role Phone Maxime Henning MD Primary Care Provider [phone] Allergies Active Allergy Reactions Criticality Noted Date [...] StripUSE DAILY DIRECTED TO TEST BLOOD SUGAR [id number] Aguiar 3 Active hydroCHLOROthia zide 25 MG tablet Take 1 tablet by mouth daily. 3 Active levothyroxine 88 MCG tablet Take 88 mcg by mouth daily. 0 Active lisinopril 40 MG tablet 3 Active metFORMIN 500 MG tablet Take 2 tablets by mouth 2 (two) times daily. 3 Active Multiple Vitamins tablet Acti ve [place] 3 1000 MG Cap Take by mouth [...] Noted Date Diagnosed Date Chronic kidney disease, stage 3 (moderate) 10/19 Hypertensive chronic kidney disease with stage 1 through stage 4 chronic kidney disease, or unspecified chronic kidney disease 10/20/2015 Other hyperlipidemia 10/20/2015 Overview (11/30/2019): Converted unresolved ICD9, potential mismatch. Type 2 diabetes mellitus wit h chronic kidney disease ([facility]) 10/20/2015 Diarrhea 08/17/2013 Hematochezia 12/02/2012 Knee pain 11/08/2012 Joint pain, hip 11/08/2012 Sciatica 10/14/2012 Type 1 diabetes mellitus ([facility]) 10/14 Esophageal reflux 02/11/2012 Fibromyalgia 02/11/2012 Hypertension 02/11/2012 Hypothyroidism 02/11/2012 Diabetes mellitus, controlled ([facility]) 02/11/2012 Resolved Problems Problem Noted Date Diagnosed [...] AM CDT Pulse 75 08/29/2013 4:18 PM CAMPAIGN DIRECTOR Temperature - - Respiratory Rate - - [...] Comments HEMOGLOBIN, GLYCOSYLATED Routine 08/23/2012 8:45 AM CAMPAIGN DIRECTOR from Last 3 Months or Most Recently Relevant to Health Maintenance Results * (ABNORMAL) HEMOGLOBIN, GLYCOSYLATED (08/23/2012 8:45 AM CAMPAIGN DIRECTOR) HGB A1C 7.8 INCREASED RISK OF DIABETES <5.7% NON-DIABETES 5.7-6.4% INCREASED RISK FOR FUTURE DIABETES > OR = 6.5 CONSISTENT WITH DIABETES STANDARDS OF MEDICAL CARE IN DIABETES-2010 DIABETES CARE, 33(SUPP 1): S1-S61,2009 (H) <5.7 % [employer] TO EPIC CONVERSION 08/23/2012 8:45 AM CAMPAIGN DIRECTOR 08/23/2012 8:45 AM CAMPAIGN DIRECTOR Narrative [employer] TO EPIC CONVERSION - 08/23/2012 8:53 AM CAMPAIGN DIRECTOR Result Communication: Call patient with results us Russell Reinoso MD LABORATORY Final Result [employer] TO EPIC CONVERSION from Last 3 Months or Most Recently Relevant to Health Maintenance Insurance MEDICARE Member Subscriber Plan / Payer (Ef fective 2019-Present) Name:Sofía Fatimacarito Caballero Relation to Subscriber:Self Name:Kushal Yesica A Payer ID:Not on file Group ID:Not on file Type:[facility] Address: [address] [place] [address] [place] [address] [facility] Member Subscriber Plan / Payer (Ef fective 2015-Present) Name:Sofía Fatimacarito Caballero Relation to Subscriber:Self Name:Sofía Fatimacarito Caballero Payer ID:Not on file Group ID:Not on file Type:[facility] Address: [address] [place] [id number] Care Teams Contour Path Tape Mill Operator Relationship Specialty Start Date End Date Maxime Henning MD [address] [place] [address] PCP - General FAMILY PRACTICE 11/20/19
[2024-09-15 21:21] VITALS: BP 196/124; PULSE 85; RESP 18; TEMP 36.7; O2SAT 99
[2024-09-15 21:23] VITALS: BP 259/119
[2024-09-15 21:25] VITALS: BP 220/117
--- NOTE | 2024-09-16 03:22 | ED_ITS ---
HPI - General Adult General Chief complaint: Fall Stated complaint: glf today, hematoma right eye Time Seen by Provider: 09/16/24 03:15 History of Present Illness HPI narrative: Patient is a 74-year-old female who presents emergency department with chief complaint of trip and fall over her. The patient states that she has bruising around her right orbit and reports that she has pain on the right wrist Related Data Home Medications ?Medication ?Instructions ?Recorded ?Confirmed ?Last Taken ?Type ascorbic acid (vitamin C) 125 mg 125 mg PO DAILY 08/03/19 08/08/24 Unknown History chewable tablet cinnamon bark 500 mg capsule 1,000 mg PO BID 08/03/19 08/08/24 Unknown History (Cinnamon) esomeprazole magnesium 20 mg 20 mg PO DAILY 08/03/19 08/08/24 Unknown History capsule,delayed release (Nexium 24HR) echinacea 400 mg capsule 400 mg PO BID 01/19/20 08/08/24 Unknown History Allergies Allergy/AdvReac Type Severity Reaction Status Date / Time Sulfa (Sulfonamide Allergy Unknown Hives Verified 09/15/24 21:13 Antibiotics) Review of Systems Review of Systems: A 10 system review of systems was completed on the patient and is negative except for what is stated in the HPI. Nursing and ancillary documentation was reviewed. [facility] Past Medical History Medical History Diabetes with retinopathy Hypertensive CKD (chronic kidney disease) Long-term insulin use Hypertension LUZ MARIA (obstructive sleep apnea) Afib Diabetes mellitus type 2, uncontrolled Chronic kidney disease, stage 4 (severe) Hypothyroidism Transient cerebral ischemia Surgical History Surgical History Closed right hip fracture s/p ORIF Status post hysterectomy with oophorectomy Family History Family History Father Patient's father is Sibling Patient's brother is Social History Social History Social History: , lives alone, retired Smoking status: Never smoker Second hand tobacco smoke exposure: No Alcohol intake: never Substance use: never Substance use type: does not use Do You Feel Safe in your Home?: Yes Lack of Transportation: No Lack of Food: Never True Current Housing: I Have Housing Concerned About Future Housing: No Difficulty Paying Gas/Electric Bills: No Difficulty Paying for Meds: No Currently Unemployed: No Education: High School Diploma/GED Difficulty w/ Childcare or Family Care: No Living arrangements: with family Occupation/Education: occupation Additional occupation/education comments: worked at [employer] in [place] before retiring Gender identity (if verbalized by the patient): Female Sexual Orientation (if Verbalized by the Patient): Straight or Heterosexual Exam Narrative: GENERAL: Well-appearing, well-nourished, and in no acute distress. HEAD: Normocephalic, atraumatic. EYES: PERRLA and EOMI. Bruising around the right orbit ENT: Nares clear, no rhinorrhea or epistaxis. Mucous membranes moist. NECK: Supple. CHEST: Clear to auscultation. No respiratory distress. HEART: Regular rate and rhythm. No murmur heard. Normal peripheral pulses. ABDOMEN: Soft, nontender, nondistended, normal active bowel sounds. EXTREMITIES: Normal range of motion tenderness to palpation of the right wrist. No edema. SKIN: Warm, dry, no rash. NEURO: No focal deficits. Alert and oriented x3. PSYCH: Normal mood and affect. Course Vital Signs Vital signs: Vital Signs Temperature 36.7 C 09/15/24 21:21 Pulse Rate 85 09/15/24 21:21 Respiratory Rate 18 09/15/24 21:21 Blood Pressure 196/124 H 09/15/24 21:21 Pulse Oximetry 99 09/15/24 21:21 Temperature 36.7 C 09/15/24 21:21 Pulse Rate 85 09/15/24 21:21 Respiratory Rate 18 09/15/24 21:21 Blood Pressure 220/117 H 09/15/24 21:25 Pulse Oximetry 99 09/15/24 21:21 Medical Decision Making MDM Narrative Medical decision making narrative: Differential diagnosis includes head injury, facial fracture, cervical spine fracture Plain film x-rays of the right wrist showed a possible triquetral fracture CT head CT C-spine CT facial bones showed no evidence of intracranial pathology, no evidence of facial fracture and no evidence of cervical spine fracture. Vital Signs Vital Signs: Vital Signs Temperature 36.7 C 09/15/24 21:21 Pulse Rate 85 09/15/24 21:21 Respiratory Rate 18 09/15/24 21:21 Blood Pressure 196/124 H 09/15/24 21:21 Pulse Oximetry 99 09/15/24 21:21 Temperature 36.7 C 09/15/24 21:21 Pulse Rate 85 09/15/24 21:21 Respiratory Rate 18 09/15/24 21:21 Blood Pressure 220/117 H 09/15/24 21:25 Pulse Oximetry 99 09/15/24 21:21 Discharge Plan Discharge Clinical Impression: Fracture of triquetral bone of right wrist, Contusion of right orbital tissues, Head injury Instructions: Head Injury (ED), Contusion in Adults (ED), Splint Care (ED) Patient Language: Azeri Prescriptions: New hydrocodone-acetaminophen 5-325 mg tablet 1 tablet PO Q6H PRN (Reason: pain) 3 Days Qty: 12 0RF No Action semaglutide 1 mg/dose (2 mg/1.5 mL) pen injector 1 mg subcut WEEKLY 90 Days Qty: 9.75 2RF cinnamon bark [Cinnamon] 500 mg capsule 1,000 mg PO BID esomeprazole magnesium [Nexium 24HR] 20 mg capsule,delayed release(DR/EC) 20 mg PO DAILY ascorbic acid (vitamin C) 125 mg tablet,chewable 125 mg PO DAILY (DME) lancets Misc See Rx Instructions .ROUTE .MEDSUPPLY Qty: 100 2RF Rx Instructions: Use once daily to check blood sugar (DME) blood-glucose meter Misc See Rx Instructions .ROUTE .MEDSUPPLY Qty: 1 0RF Rx Instructions: As directed diltiazem HCl 120 mg capsule,extended release 24hr 120 mg PO DAILY Qty: 90 0RF calcitriol 0.25 mcg capsule 0.25 mcg PO 3XW Qty: 12 6RF Rx Instructions: Take on Mondays, Wednesday, and Fridays echinacea 400 mg Capsule 400 mg PO BID atorvastatin 10 mg tablet 10 mg PO DAILY Qty: 90 3RF metoprolol tartrate 50 mg tablet 50 mg PO BID Qty: 180 3RF (DME) OneTouch Ultra Test Strip See Rx Instructions .Route Qty: 100 11RF Rx Instructions: use to test once daily (DME) pen needle, diabetic [BD Ultra-Fine Orig Pen Needle] 29 gauge x 1/2 needle See Rx Instructions .ROUTE .MEDSUPPLY Qty: 100 3RF Rx Instructions: Inject daily levothyroxine 100 mcg tablet See Rx Instructions .ROUTE .COMPLEX Qty: 90 2RF Dose Instruction: TAKE 1 TABLET BY MOUTH DAILY Rx Instructions: TAKE 1 TABLET BY MOUTH DAILY Eliquis 5 mg tablet 5 mg PO BID Qty: 180 1RF glimepiride 1 mg tablet 2 mg PO QAM Qty: 180 1RF Rx Instructions: administer with breakfast ondansetron HCl 4 mg tablet 4 mg PO Q8H PRN (Reason: nausea and vomiting) Qty: 30 1RF insulin glargine [Basaglar KwikPen U-100 Insulin] 100 unit/mL (3 mL) insulin pen See Rx Instructions .ROUTE .COMPLEX Qty: 15 2RF Dose Instruction: ADMINISTER 20 UNITS UNDER THE SKIN EVERY EVENING Rx Instructions: ADMINISTER 20 UNITS UNDER THE SKIN EVERY EVENING amitriptyline 25 mg tablet 25 mg PO DAILY Qty: 90 3RF benzonatate 100 mg capsule 200 mg PO TID PRN (Reason: cough) Qty: 60 0RF furosemide 20 mg tablet 20 mg PO QAM Qty: 90 2RF Follow-up/Referrals: Maxime Henning MD [Primary Care Provider] - Gustavo Kendall MD [Physician] -
[2024-09-16] MEDS: HYDROcodone/acetaminophen (*CRX) 5-325 MG TABLET 1 TAB PO (03:35)
[2024-09-16 03:40] VITALS: BP 230/110; PULSE 92; RESP 17; O2SAT 99
--- OUTSIDE RECORDS SUMMARY | 2024-09-16 03:43 | XMS_ITS | Clinical Summary ---
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 Gender Identity Not on file Sexual Orientation [...] POCT LIPID PANEL Routine 09/09/2023 1:20 PM MACHINIST SUPERVISOR Hyperlipidemia associated with type 2 diabetes mellitus (HCC) from Last 3 Months or Most Recently Relevant to Health Maintenance Results * POCT lipid panel (09/09/2023 1:20 PM MACHINIST SUPERVISOR) Cholesterol, POC 105 mg/dL HDL, POC 31 mg/dL Triglycerides, POC 119 mg/dL LDL Cholesterol POC 51 mg/dL Chol/HDL Ratio, POC 1.7 Non-HDL Cholesterol, POC 75 mg/dL Cholesterol Total, POC 105 mg/dL Capillary blood 09/09/2023 1 :20 PM MACHINIST SUPERVISOR us Rikki Rajan MD POINT OF CARE TEST ORDERA BLES Final Result from Last 3 Months or Most Recently Relevant to Health Maintenance Insurance [address] [place] [id number] Care Teams Rehab Physician Relationship Specialty Start Date End Date Maxime Henning MD [address] [facility] [address] [place] [address] PCP - General Family Medicine 12/11/19
--- OUTSIDE RECORDS SUMMARY | 2024-09-16 03:43 | XMS_ITS | Referral Summary ---
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 Gender Identity Not on file Sexual Orientation [...] POCT LIPID PANEL Routine 09/09/2023 1:20 PM INFRASTRUCTURE DESIGN ENGINEER Hyperlipidemia associated with type 2 diabetes mellitus (HCC) from Last 3 Months or Most Recently Relevant to Health Maintenance Results * POCT lipid panel (09/09/2023 1:20 PM INFRASTRUCTURE DESIGN ENGINEER) Cholesterol, POC 105 mg/dL HDL, POC 31 mg/dL Triglycerides, POC 119 mg/dL LDL Cholesterol POC 51 mg/dL Chol/HDL Ratio, POC 1.7 Non-HDL Cholesterol, POC 75 mg/dL Cholesterol Total, POC 105 mg/dL Capillary blood 09/09/2023 1 :20 PM INFRASTRUCTURE DESIGN ENGINEER us Rikki Rajan MD POINT OF CARE TEST ORDERA BLES Final Result from Last 3 Months or Most Recently Relevant to Health Maintenance Insurance [employer] Care Teams Crystal Cutter Relationship Specialty Start Date End Date Maxime Henning MD [address] [facility] [address] [place] [address] PCP - General Family Medicine 12/11/19
--- OUTSIDE RECORDS SUMMARY | 2024-09-16 03:43 | XMS_ITS | Clinical Summary ---
Author Organization [facility] Address [address] [place] [id number] Phone Care Team Providers Care Clinical Genetics Laboratory Chief Name Role Phone Maxime Henning MD Primary Care Provider [phone] Allergies Active Allergy Reactions Criticality Noted Date [...] Influenza Vaccine (#1) 2024 05/20/2016 Care Teams Clinical Genetics Laboratory Chief Relationship Specialty Start Date End Date Maxime Henning MD [address] [facility] [address] [place] [id number] PCP - General Internal Medicine 11/15/18
[2024-09-16 03:51] VITALS: PULSE 92
[2024-09-16] MEDS: METOPROLOL TARTRATE 50 MG TAB PO (03:51)
--- NOTE | 2024-09-16 04:00 | PC.NURSE ---
Patient's blood pressure was 230/110 upon discharge. Patient stated she missed her nighttime medications, including Metoprolol but was unsure of the dosage. EDP Dr. Barber made aware and ordered blood pressure medication. See MAR. Patient did not want to stay to monitor blood pressure, and denies chest pain, shortness of breath, headaches, changes in vision. This RN explained to patient the importance of monitoring blood pressure and keeping a journal for her PCP to see vital sign trends and make sure the medication she is taking is therapeutic. Patient verbalizes understanding.
== END 2024-09-16 04:05 | disposition home or self-care (01) ==
PROVIDERS: Emergency Provider Emergency Medicine; PCP Family Medicine
DX: S05.11XA Contusion of eyeball and orbital tissues, right eye, initial encounter (principal); S62.111A Displaced fracture of triquetrum [cuneiform] bone, right wrist, initial encounter for closed fracture; E11.319 Type 2 diabetes mellitus with unspecified diabetic retinopathy without macular edema; I12.9 Hypertensive chronic kidney disease with stage 1 through stage 4 chronic kidney disease, or unspecified chronic kidney disease; E11.22 Type 2 diabetes mellitus with diabetic chronic kidney disease; N18.4 Chronic kidney disease, stage 4 (severe); G47.33 Obstructive sleep apnea (adult) (pediatric); I48.91 Unspecified atrial fibrillation; Z86.73 Personal history of transient ischemic attack (TIA), and cerebral infarction without residual deficits; E03.9 Hypothyroidism, unspecified; Z90.710 Acquired absence of both cervix and uterus; Z79.85 Long-term (current) use of injectable non-insulin antidiabetic drugs; Z79.899 Other long term (current) drug therapy; Z79.01 Long term (current) use of anticoagulants; Z79.84 Long term (current) use of oral hypoglycemic drugs; Z79.4 Long term (current) use of insulin; W01.0XXA Fall on same level from slipping, tripping and stumbling without subsequent striking against object, initial encounter
CPT/HCPCS: 29125; 70450; 70486; 72125; 73100; 99284; A4565; A9270

== ENCOUNTER 2024-09-18 13:51 | Inpatient (IN) | payer MEDICARE, SELFPAY ==
[2024-09-18] VITALS (18 sets, daily range): BP systolic 153–215; BP diastolic 70–96; PULSE 59–102; RESP 14–20; TEMP 36.6; O2SAT 90–100; BMI 34.9
--- NOTE | ~2024-09-18 | XR_ITS ---
EXAMINATION: XR shoulder RT min 2V DATE: 09/19/2024 08:22 INDICATION: Proximal right humerus fracture. TECHNIQUE: 2 views of right shoulder were obtained. COMPARISON: Right shoulder CT 09/18/2024 FINDINGS: There is a comminuted fracture of proximal right humerus with involvement of the greater tu berosity and surgical neck. At the surgical neck, the distal fracture fragment demonstrates impaction , 18 mm anterior displacement, 9 mm medial displacement, and 27 degrees lateral angulation. There is severe osteoarthritis of acromioclavicular joint. The glenohumeral joint is not well profiled. IMPRESSION: 1. Comminuted two-part fracture of proximal right humerus. Reviewed, dictated and finalized at location B.
--- NOTE | ~2024-09-18 | XR_ITS ---
EXAMINATION: XR chest 1V DATE: 09/18/2024 15:39 INDICATION: Fall. TECHNIQUE: A single frontal view of the chest was obtained. COMPARISON: Chest 2 views 08/08/2024, right shoulder CT 09/18/2024 FINDINGS: There are airspace and interstitial opacities in the mid and lower lung zones. No pleural e ffusion or pneumothorax. Cardiomegaly is noted. There is a fracture deformity of proximal right humer us. IMPRESSION: 1. Worsened airspace and interstitial opacities in the mid and lower lung zones, likely atelectasis. 2. Cardiomegaly. 3. Fracture deformity of proximal right humerus. Reviewed, dictated and finalized at location B. IMPRESSION: 1. Worsened airspace and interstitial opacities in the mid and lower lung zones , likely atelectasis. 2. Cardiomegaly. 3. Fracture deformity of proximal right humerus.
--- NOTE | ~2024-09-18 | XR_ITS ---
XR wrist RT min 3V Ordering provider: PARDEEP Zambrano History: . possible distal ulna fracture on CT . Comparison: November 15, 2024 FINDINGS: BONES: No acute fracture or dislocation. Bony fragment is seen posteriorly which may indicate a fract ure in the triquetral bone. Old fracture of the ulnar styloid. Possible lucency in the distal ulna ca nnot be excluded. No change in alignment. Overlying cast is noted. JOINT SPACES: Osteoarthritic changes of the first carpometacarpal joint. Osteoarthritic changes of the carpometacarpal joint. SOFT TISSUES: Normal. IMPRESSION: No change from previous examination. Reviewed, dictated and finalized at location A.
--- NOTE | ~2024-09-18 | CT_ITS ---
Procedure: CT UE RT wo con Ordering provider: Robin Raymundo MD History: . fall, trauma, shoulder, elbow, arm pain . Comparison: None. Technique: Thin slice axial CT of the No IV contrast was given. Sagittal and coronal reformatted imag es were also obtained and reviewed. Radiation reduction technique utilized.The dose-length product wa s 782.96 mGy-cm. Findings: BONES: Impacted comminuted fracture of the proximal metaphysis of the right humerus. SOS Highly suggestive undisplaced fracture in the distal ulna. The elbow area is partially included in th is study. JOINT SPACES: Small bony fragment in the joint. Otherwise, Normal glenohumeral joint. Osteoarthritic changes of the acromioclavicular joint. Minimal joint effusion SOFT TISSUES: Fat stranding around the proximal humerus IMPRESSION: Impacted fracture of the proximal metaphysis of the right humerus. Possible undisplaced fracture in the distal ulna. Reviewed, dictated and finalized at location A.
--- NOTE | ~2024-09-18 | CT_ITS ---
CT brain wo con Ordering provider: Robin Raymundo MD History: 74 years Female with . CHI, fall . Comparison: None. Technique: CT of the head without contrast. Radiation reduction technique utilized.The dose-length product was 681 mGy-cm. FINDINGS: BRAIN PARENCHYMA AND CSF SPACES: Mild leukoaraiosis and diffuse cortical atrophy. Mild atheromatous d isease. No midline shift, mass effect or hemorrhage. The brain parenchyma and CSF spaces are otherwi se normal. VISUALIZED PARANASAL SINUSES: Bilateral maxillary sinus disease. Bilateral ethmoid sinus disease. MASTOIDS: Left mastoid air cells effusion. BONES: The bones appear intact. SOFT TISSUES: Visualized nasopharynx is normal. Frontal scalp hematoma. Soft tissue swelling over th e right and left orbits. Superficial soft tissues are normal. IMPRESSION: No acute intracranial findings. Reviewed, dictated and finalized at location A.
--- NOTE | 2024-09-18 14:43 | ECG_ITS ---
Test Date: 2024-09-18 16:18:16 Measurements Intervals [place] Rate: 68 P: 56 SC: 207 QRS: -10 QRSD: 100 T: 24 QT: 424 QTc: 454 Interpretive Statements SINUS RHYTHM WITH OCCASIONAL VENTRICULAR PREMATURE COMPLEXES POSSIBLE ANTERIOR MYOCARDIAL INFARCTION , PROBABLY OLD [30 ms Q WAVE IN V3/V4, OR R < 0.2 mV IN V4] No previous ECG available for comparison Electronically Signed On 09-19-2024 14:31:46 CDT by Moisés Max M.D.
--- NOTE | 2024-09-18 14:46 | ED_ITS ---
HPI - Fall General Chief Complaint: Fall Stated Complaint: R shoulder pain s/p fall Time Seen by Provider: 09/18/24 13:54 History of Present Illness HPI Narrative: 74-year-old female presenting to the emergency department for evaluation of an injury status post fall. Patient was seen here 2 days ago after a mechanical fall forward onto her head and wrist. She sustained a fracture of the right wrist that was splinted in the ED and she was discharged home after imaging studies. Patient currently resides with her daughter which is helping her take care of herself and ambulate. Today she had a with seems to be mechanical fall backwards and striking her right shoulder and arm against the door frame while sliding to the ground. No syncope or loss of consciousness. No headache, nausea, vomiting, chest pain, shortness a breath, fever, chills. Ambulance arrived and provider 4 mg of morphine with minimal relief for pain. Patient has sensation and good box blank machine feeder strength in the right upper extremity was states that hurts to move and not able to move her shoulder. Related Data Home Medications ?Medication ?Instructions ?Recorded ?Confirmed ?Last Taken ?Type ascorbic acid (vitamin C) 125 mg 125 mg PO DAILY 08/03/19 08/08/24 Unknown History chewable tablet cinnamon bark 500 mg capsule 1,000 mg PO BID 08/03/19 08/08/24 Unknown History (Cinnamon) esomeprazole magnesium 20 mg 20 mg PO DAILY 08/03/19 08/08/24 Unknown History capsule,delayed release (Nexium 24HR) echinacea 400 mg capsule 400 mg PO BID 01/19/20 08/08/24 Unknown History Allergies Allergy/AdvReac Type Severity Reaction Status Date / Time Sulfa (Sulfonamide Allergy Unknown Hives Verified 09/18/24 14:04 Antibiotics) Review of Systems Review of Systems: As reviewed above in HPI [facility] Past Medical History Medical History Diabetes with retinopathy Hypertensive CKD (chronic kidney disease) Long-term insulin use Hypertension LUZ MARIA (obstructive sleep apnea) Afib Diabetes mellitus type 2, uncontrolled Chronic kidney disease, stage 4 (severe) Hypothyroidism Transient cerebral ischemia Surgical History Surgical History Closed right hip fracture s/p ORIF Status post hysterectomy with oophorectomy Family History Family History Father Patient's father is Sibling Patient's brother is Social History Social History Social History: , lives alone, retired Smoking status: Never smoker Second hand tobacco smoke exposure: No Alcohol intake: never Substance use: never Substance use type: does not use Do You Feel Safe in your Home?: Yes Lack of Transportation: No Lack of Food: Never True Current Housing: I Have Housing Concerned About Future Housing: No Difficulty Paying Gas/Electric Bills: No Difficulty Paying for Meds: No Currently Unemployed: No Education: High School Diploma/GED Difficulty w/ Childcare or Family Care: No Living arrangements: with family Occupation/Education: occupation Additional occupation/education comments: worked at [employer] in [place] before retiring Gender identity (if verbalized by the patient): Female Sexual Orientation (if Verbalized by the Patient): Straight or Heterosexual Exam Narrative: GENERAL: Appears in pain but not in any distress, answering questions appropriately. Awake alert oriented. HEAD: Periorbital hematoma on the right side but extraocular moves are full, no new evidence of trauma. EYES: [PERRLA and EOMI.] ENT: Nares clear, no rhinorrhea or epistaxis. Mucous membranes moist. NECK: Supple. CHEST: [Clear to auscultation. No respiratory distress.] HEART: [Regular rate and rhythm]. No murmur heard. [Normal peripheral pulses.] ABDOMEN: [Soft, nondistended], [nontender], [No rigidity or guarding] EXTREMITIES: Limited range of motion the right upper extremity with flexion extension eliciting pain. Tenderness over the lateral aspect of the AC joint on the right side with some asymmetry and fullness in the proximal humerus region suspicious for underlying fracture. Tenderness along the elbow with pain on flexion and extension of the elbow and flexion extension of the shoulder. Distally right upper extremity has a splint in the forearm and hand with good neuro vasculature, box blank machine feeder strength 5/5, able to move her fingers. No midline cervical thoracic or lumbar spinal tenderness. No ribcage tenderness. No scapular tenderness. SKIN: Warm, dry, no rash. NEURO: [No focal deficits]. Alert and oriented [x3.] PSYCH: [Normal mood and affect.] Course Vital Signs Vital signs: Vital Signs Temperature 36.6 C 09/18/24 13:50 Pulse Rate 59 L 09/18/24 13:50 Respiratory Rate 20 09/18/24 13:50 Blood Pressure 158/81 H 09/18/24 13:50 Pulse Oximetry 97 09/18/24 13:50 Oxygen Delivery Room Air 09/18/24 13:50 Temperature 36.6 C 09/18/24 13:50 Pulse Rate 59 L 09/18/24 13:50 Respiratory Rate 20 09/18/24 13:50 Blood Pressure 158/81 H 09/18/24 13:50 Pulse Oximetry 97 09/18/24 13:50 Oxygen Delivery Room Air 09/18/24 13:50 MDM - Fall MDM Narrative Medical decision making narrative: 74-year-old female presenting for evaluation after a fall. She was seen here 2 days ago and had a fall that was mechanical in nature which she sustained a wrist fracture, splinted and sent home. Today she presents with another fall while she tripped, fell backwards and struck her shoulder and right upper extremity against a door frame all sliding to the ground. Did not lose consciousness. She has evidence of a recent injury from several days ago with the periorbital edema and swelling that is not new. She has pain and asymmetric swelling in her right upper extremity with some concern for proximal humerus fracture versus dislocation. Elbow pain also listed with flexion extension. Distally she is splinted at the wrist with good neuro vasculature, good box blank machine feeder strength. Given her age and risk factors we ordered a CT of the head as well as a CT of the right upper extremity for further delineation. Laboratory studies such as CBC, CMP, PTT PTT and type and screen ordered for potential operative intervention. EKG and chest x-ray also obtained. She was provided Dilaudid for analgesia and re-evaluated frequently. Patient was re-evaluated the improvement her pain. Patient had difficult vasculature and was not able to get blood work, patient did not want to be poked again. CT scan shows no intracranial findings on the head CT. Chest x-ray shows some atelectasis and cardiomegaly, fracture deformity of the proximal right humerus. Right humerus has an impacted fracture at the proximal metaphysis on the CT scan as well as an undisplaced fracture of the distal ulna previously seen on x-ray several days ago. I went and re-evaluated the patient who had improvement her pain. Went over options with the patient at this time including admission to the hospital for PT, OT, orthopedics evaluation or discharge home with outpatient orthopedics evaluation and pain control medications. Patient and family felt comfortable being discharged at this time and want to go home with pain control medications. Shoulder immobilizer was applied to the right upper extremity to help with the proximal humerus fracture stabilization and pain control. Maintaining the right upper extremity splint from 2 days ago as well. Patient will be given orthopedic surgery follow-up instructions and a prescription for medications sent to her pharmacy. There were given strict return precautions and were stable for discharge at this time. Medical Records Attestation: I reviewed the patient's medical records. Lab Data Attestation: I reviewed the patient's lab results. Labs: Lab Results 09/18/24 Range/Units 16:16 Urine Color Pending Urine Appearance Pending Urine pH Pending Ur Specific [place] Pending Urine Protein Pending Urine Glucose (UA) Pending Urine Ketones Pending Ur Blood (Man) Pending Urine Nitrate Pending Urine Bilirubin Pending Urine Urobilinogen Pending Leukocyte Esterase Rfl Pending Imaging Data Attestation: I personally reviewed and interpreted this imaging study as follows: My impression: Impressions Head CT 09/18/24 15:33 IMPRESSION: No acute intracranial findings. Chest X-Ray 09/18/24 15:42 IMPRESSION: 1. Worsened airspace and interstitial opacities in the mid and lower lung zones, likely atelectasis. 2. Cardiomegaly. 3. Fracture deformity of proximal right humerus. Upper Extremity CT 09/18/24 15:43 IMPRESSION: Impacted fracture of the proximal metaphysis of the right humerus. Possible undisplaced fracture in the distal ulna. Discharge Plan Discharge Clinical Impression: Closed fracture of proximal end of right humerus, Distal end of ulna fracture, closed, CHI (closed head injury), Fall Patient Disposition: Home, Self-Care Condition: Stable Instructions: Antibiotic Form, Proximal Humerus Fracture (ED), Shoulder Immobilizer (ED) Additional Instructions: You have a fracture of the proximal right humerus, old fracture of the right distal ulna and hand seen previously. We have placed 2 in a shoulder immobilizer and sent home with pain control medications and orthopedic surgery follow-up instructions. Called our office today or tomorrow morning for outpatient evaluation. Return if you have increased pain, increased swelling, neuropathy or discoloration of the fingers or any other concerns. Patient Language: Sami Prescriptions: New hydrocodone-acetaminophen 5-325 mg tablet 1 tablet PO Q8H PRN (Reason: pain) Qty: 12 0RF No Action semaglutide 1 mg/dose (2 mg/1.5 mL) pen injector 1 mg subcut WEEKLY 90 Days Qty: 9.75 2RF cinnamon bark [Cinnamon] 500 mg capsule 1,000 mg PO BID esomeprazole magnesium [Nexium 24HR] 20 mg capsule,delayed release(DR/EC) 20 mg PO DAILY ascorbic acid (vitamin C) 125 mg tablet,chewable 125 mg PO DAILY (DME) lancets Misc See Rx Instructions .ROUTE .MEDSUPPLY Qty: 100 2RF Rx Instructions: Use once daily to check blood sugar (DME) blood-glucose meter Misc See Rx Instructions .ROUTE .MEDSUPPLY Qty: 1 0RF Rx Instructions: As directed diltiazem HCl 120 mg capsule,extended release 24hr 120 mg PO DAILY Qty: 90 0RF calcitriol 0.25 mcg capsule 0.25 mcg PO 3XW Qty: 12 6RF Rx Instructions: Take on Mondays, Wednesday, and Fridays hydrocodone-acetaminophen 5-325 mg tablet 1 tablet PO Q6H PRN (Reason: pain) 3 Days Qty: 12 0RF echinacea 400 mg Capsule 400 mg PO BID atorvastatin 10 mg tablet 10 mg PO DAILY Qty: 90 3RF metoprolol tartrate 50 mg tablet 50 mg PO BID Qty: 180 3RF (DME) OneTouch Ultra Test Strip See Rx Instructions .Route Qty: 100 11RF Rx Instructions: use to test once daily (DME) pen needle, diabetic [BD Ultra-Fine Orig Pen Needle] 29 gauge x 1/2 needle See Rx Instructions .ROUTE .MEDSUPPLY Qty: 100 3RF Rx Instructions: Inject daily levothyroxine 100 mcg tablet See Rx Instructions .ROUTE .COMPLEX Qty: 90 2RF Dose Instruction: TAKE 1 TABLET BY MOUTH DAILY Rx Instructions: TAKE 1 TABLET BY MOUTH DAILY Eliquis 5 mg tablet 5 mg PO BID Qty: 180 1RF glimepiride 1 mg tablet 2 mg PO QAM Qty: 180 1RF Rx Instructions: administer with breakfast ondansetron HCl 4 mg tablet 4 mg PO Q8H PRN (Reason: nausea and vomiting) Qty: 30 1RF insulin glargine [Basaglar KwikPen U-100 Insulin] 100 unit/mL (3 mL) insulin pen See Rx Instructions .ROUTE .COMPLEX Qty: 15 2RF Dose Instruction: ADMINISTER 20 UNITS UNDER THE SKIN EVERY EVENING Rx Instructions: ADMINISTER 20 UNITS UNDER THE SKIN EVERY EVENING amitriptyline 25 mg tablet 25 mg PO DAILY Qty: 90 3RF benzonatate 100 mg capsule 200 mg PO TID PRN (Reason: cough) Qty: 60 0RF furosemide 20 mg tablet 20 mg PO QAM Qty: 90 2RF Follow-up/Referrals: Maxime Henning MD [Primary Care Provider] - Jordi Frank MD [Physician] - 3 Days (Proximal humerus fracture in addition to previous possible unlar and triquetral fracture) Time of Disposition: 16:35
[2024-09-18] MEDS: HYDROmorphone HCL INJ (*CRX) 1 MG/ML SYR IV PUSH (15:01)
[2024-09-18] MEDS: ONDANSETRON INJ 4 MG/2 ML VIAL IV PUSH (16:46)
[2024-09-18 16:52] LABS: Add Urine Microscopic? YES; Appearance Urine Turbid (Clear); Bacteria Urine 2+ /hpf; Bilirubin Urine Negative (Negative); Blood Urine Trace (Negative); Color Urine Yellow (Yellow); Glucose Urine UA Negative (Negative); Ketones Urine Negative (Negative); Leukocyte Esterase Ur 1+ LEU/UL (Negative); Need Manual Microscopic Reviewed; Nitrate Urine Negative (Negative); Protein Urine 3+ mg/dL (Negative); Specific Grav Ur 1.015 (1.001-1.035); Squamous Epithelial Cell Urine Many /hpf (Few); Urobilinogen Urine 0.2 mg/dL (<2.0); WBC Urine 51-100 /hpf (0-3)
--- NOTE | 2024-09-18 17:08 | PC.NURSE ---
Pt and daughter initially stated they wanted to go home and both felt safe doing so, as pt was going to stay with daughter. However, upon discharge, pt requiring significant assistance with standing, pt nodding off during discharge teaching (but awakens easily and A&Ox4), and pt made comments to daughter that she is concerned that she will be too much for daughter at home. Pt reports feeling much weaker than normal today, and states she is scared she will fall again going home. Pt and daughter now in agreement that pt would benefit more from admission/therapy consults as MD Raymundo had previously discussed with them. MD Raymundo updated.
--- OUTSIDE RECORDS SUMMARY | 2024-09-18 17:45 | XMS_ITS | Clinical Summary ---
Author Organization [facility] Address [address] [place] [id number] Phone Care Team Providers Care Division Merchandise Manager Name Role Phone Maxime Henning MD Primary Care Provider [phone] Allergies Active Allergy Reactions Criticality Noted Date [...] Influenza Vaccine (#1) 2024 05/20/2016 Care Teams Division Merchandise Manager Relationship Specialty Start Date End Date Maxime Henning MD [address] [facility] [address] [place] [id number] PCP - General Internal Medicine 11/15/18
--- OUTSIDE RECORDS SUMMARY | 2024-09-18 17:45 | XMS_ITS | Clinical Summary ---
Author Organization [facility] [address] Address [address] [place] [address] Care Team Providers Care Metal Sander Name Role Phone Maxime Henning MD Primary [...] DAILY 30 capsule 11 03/27/20 24 Active HYDROcodone-acetami nophen (NORCO) 5-325 mg per tablet TAKE 1 TABLET BY MOUTH EVERY 6 HOURS FOR 3 DAYS NEEDED FOR PAIN 09/17/19 25 Active Active Problems Problem Noted Date Diagnosed [...] 4 chronic kidney disease and hypertension 12/13/2019 Encounters Date Type Department Care Team Description 09/18/2024 10:30 AM CDT Office Visit [facility] Cardiology [address] [facility] [address] [place] [phone] Corin Parks NP Dyspnea on exertion; Edema, lower extremity; Hypertension associated with diabetes (HCC); Paroxysmal atrial fibrillation (HCC); Chronic anticoagulation; History of fall; Lipid screening 09/18/[address] 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 Gender Identity Not on file Sexual Orientation Not on file Obstetrics History Last Filed Vital Signs Vital Sign Reading Time Taken Comments Blood Pressure 136/66 09/18/2024 10:58 AM CDT Pulse 61 09/18/2024 10:58 AM CDT Temperature 35.8 C (96.4 F) 12/13/2019 11:58 AM CDT Respiratory Rate - - Oxygen Saturation 95% 09/18/2024 10:58 AM CDT Inhaled Oxygen Concentration - - Weight 93 kg (205 lb) 09/18/2024 10:58 AM CDT Height 162.6 cm (5' 4 ) 09/18/2024 10:58 AM CDT Body Mass Index 35.19 09/18/2024 10:58 AM CDT Plan of Treatment Health Maintenance [...] Vaccine (#1) 2024 05/20/2016, 2015 Lipid Panel 09/18/2025 09/18/2024, 08/13, 08/26/2022, Additional history exists Procedures Procedure Name Priority Date/Time Associated Diagnosis Comments POCT LIPID PANEL Routine 09/18/2024 11:1 0 AM CDT Lipid screening from Last 3 Months Results * POCT lipid panel (09/18/2024 11:10 AM CDT) Cholesterol, POC 128 mg/dL HDL, POC 48 mg/dL Triglycerides, POC 109 mg/dL LDL Cholesterol POC 57 mg/dL Chol/HDL Ratio, POC 1.2 Non-HDL Cholesterol, POC 79 mg/dL Cholesterol Total, POC 128 mg/dL Capillary blood 09/18/2024 1 1:10 AM CDT Corin Parks NP POINT OF CARE TEST ORDERA BLES Final Result from Last 3 Months Insurance [employer] Care Teams Metal Sander Relationship Specialty Start Date End Date Maxime Henning MD [address] [facility] [address] [place] [id number] PCP - General Family Medicine 12/11/19
--- OUTSIDE RECORDS SUMMARY | 2024-09-18 17:45 | XMS_ITS | Encounter Summary ---
Author Organization [facility] Address [address] [place] [address] Care Team Providers Care Fuel Oil Clerk Name Role Phone Maxime Henning MD Primary Care Provider [phone] Encounter Details Date Type Department Care Team (Latest Contact Info) Description 05/17/2018 Abstract [facility] , Generic Conversion, Social [...] on filedocumented in this encounter Care Teams Fuel Oil Clerk Relationship Specialty Start Date End Date Maxime Henning MD [address] [facility] [address] [place] [address] PCP - General FAMILY PRACTICE 11/20/19 documented as of this encounter
--- OUTSIDE RECORDS SUMMARY | 2024-09-18 17:45 | XMS_ITS | Clinical Summary ---
Author Organization [facility] Address [address] [place] [address] Care Team Providers Care Spray I Painter Name Role Phone Maxime Henning MD Primary [...] StripUSE DAILY DIRECTED TO TEST BLOOD SUGAR [id number] Aguiar 3 Active hydroCHLOROthia zide 25 MG tablet Take 1 tablet by mouth daily. 3 Active levothyroxine 88 MCG tablet Take 88 mcg by mouth daily. 0 Active lisinopril 40 MG tablet 3 Active metFORMIN 500 MG tablet Take 2 tablets by mouth 2 (two) times daily. 3 Active Multiple Vitamins tablet Acti ve [place] 3 1000 MG Cap Take by mouth [...] diabetes mellitus wit h chronic kidney disease ([facility]) 10/20/2015 Diarrhea 08/17/2013 Hematochezia 12/02/2012 Knee pain 11/08/2012 Joint pain, hip 11/08/2012 Sciatica 10/14/2012 Type 1 diabetes mellitus ([facility]) 10/14 Esophageal reflux 02/11/2012 Fibromyalgia 02/11/2012 Hypertension 02/11/2012 Hypothyroidism 02/11/2012 Diabetes mellitus, controlled ([facility]) 02/11/2012 Resolved Problems Problem Noted Date Diagnosed [...] AM CDT Pulse 75 08/29/2013 4:18 PM JANITOR CLEANER Temperature - - Respiratory Rate - - [...] Comments HEMOGLOBIN, GLYCOSYLATED Routine 08/23/2012 8:45 AM JANITOR CLEANER from Last 3 Months or Most Recently Relevant to Health Maintenance Results * (ABNORMAL) HEMOGLOBIN, GLYCOSYLATED (08/23/2012 8:45 AM JANITOR CLEANER) HGB A1C 7.8 INCREASED RISK OF DIABETES <5.7% NON-DIABETES 5.7-6.4% INCREASED RISK FOR FUTURE DIABETES > OR = 6.5 CONSISTENT WITH DIABETES STANDARDS OF MEDICAL CARE IN DIABETES-2010 DIABETES CARE, 33(SUPP 1): S1-S61,2009 (H) <5.7 % [facility] TO EPIC CONVERSION 08/23/2012 8:45 AM JANITOR CLEANER 08/23/2012 8:45 AM JANITOR CLEANER Narrative [facility] TO EPIC CONVERSION - 08/23/2012 8:53 AM JANITOR CLEANER Result Communication: Call patient with results us Russell Reinoso MD LABORATORY Final Result [facility] TO EPIC CONVERSION from Last 3 Months or Most Recently Relevant to Health Maintenance Insurance MEDICARE [facility] Care Teams Spray I Painter Relationship Specialty Start Date End Date Maxime Henning MD [address] [place] [address] PCP - General FAMILY PRACTICE 11/20/19
--- OUTSIDE RECORDS SUMMARY | 2024-09-18 17:45 | XMS_ITS | Encounter Summary ---
Author Organization [facility] Address [address] [place] [address] Care Team Providers Care Phlebotomy Services Representative Name Role Phone Maxime Henning MD Primary Care Provider Reason for Referral * Cardiology (Routine) - Authorized Specialty Diagnoses / Procedures Referred By Contac t Referred To Contact Diagnoses Dyspnea on exertion Procedures Transthoracic Echo (TTE) Complete W Doppler/CF Corin Parks NP [address] [place] [address] Phone: tel: fax: Referral ID Status Reason Start Date Expiration Date V isits Requested Visits Authorized [id number] Authorized 09/18/2024 10/18/2025 1 1 Reason for Visit * Reason Comments Follow-up 6 mo Encounter Details Date Type Department Care Team (Late st Contact Info) Description 09/18/2024 10:30 AM CDT Office Visit [facility] Cardiology [address] [phone] Corin Parks NP [address] [place] [address] [address] Dyspnea on exertion; Edema, lower extremity; Hypertension associated with diabetes (HCC); Paroxysmal atrial fibrillation (HCC); Chronic anticoagulation; History of fall; Lipid screening Social History Tobacco Use Types Packs/Day Years [...] on file 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 Gender Identity Not on file Sexual Orientation Not on file documented as of this encounter Last Filed Vital Signs Vital Sign Reading Time Taken Comments Blood Pressure 136/66 09/18/2024 10:58 AM CDT Pulse 61 09/18/2024 10:58 AM CDT Temperature - - Respiratory Rate - - Oxygen Saturation 95% 09/18/2024 10:58 AM CDT Inhaled Oxygen Concentration - - Weight 93 kg (205 lb) 09/18/2024 10:58 AM CDT Height 162.6 cm (5' 4 ) 09/18/2024 10:58 AM CDT Body Mass Index 35.19 09/18/2024 10:58 AM CDT documented in this encounter Progress Notes * Corin Parks NP - 09/18/2024 10:30 AM CDT Images from the original note were not included. [facility] Cardiology [address] [place] [address] Date of Visit: 09/18/2024 Patient ID: Yesica Fatima 1950 Chief Complaint Patient presents with Follow-up 6 mo Yesica Fatima is a 74 y.o. female who is an established patient of Dr. Rajan with a history of atrial fib coming to the office with multiple concerns including recent falls, worsening shortness of breath, elevated blood pressure. History of Present Illness: Yesica Fatima is a 74 y.o. female with atrial fibrillation. Patient saw Dr. Henning recently and was found to be in atrial fibrillation. Patient had not been symptomatic and this was found incidentally on examination. She is referred for further workup and evaluation. Patient states that in lookingback, she has been more fatigued and short of breath over the past month or so. She is dyspneic with climbing up 1 flight of stairs. She is easily tired and fatigued. She does also have snoring, hypersomnolence and history witnessed apnea. She denies any chest pain, syncope, presyncope, paroxysmal nocturnal dyspnea, orthopnea, edema or palpitations. She was appropriately put on a beta-nitesh as well as Eliquis. She does not feel particularly better at this point yet. She has had no bleeding problems Follow-up note 02/15/2020: She was scheduled for an outpatient cardioversion but was back in sinus rhythm at the time of presentation to the [facility]. She ran out of her Eliquis a week or soago. She denies any chest pain, shortness of breath, syncope, presyncope, paroxysmal nocturnal dyspnea, orthopnea, edema. She does have some palpitations walking to and from the car today and she fell her chest pounding. Follow-up note 06/20/2020: She denies any chest pain, unusual shortness breath, syncope, presyncope, paroxysmal nocturnal dyspnea, orthopnea. She does have some slightly worsening edema as well as some palpitations especially with activity. Follow-up note 10/23/2020: She has some swelling that comes and goes but her swelling has been pretty good as of late. She has no chest pain. She is dyspnea whenever she is caring objects such as kidney later. She has some palpitations especially whenever she is carrying though same objects. She otherwise denies any paroxysmal nocturnal dyspnea, orthopnea, syncope, presyncope, chest pain Follow-up note 05/02/2021: She does have a little bit of swelling but overall is doing okay and denies any chest pain, shortness breath, syncope, presyncope, paroxysmal nocturnal dyspnea orthopnea, palpitations Follow-up note 11/04/2021: She feels okay. She denies any chest pain, syncope, presyncope, paroxysmal nocturnal dyspnea orthopnea, edema palpitations. She is not using her CPAP. She is short of breath by doing activity such as carrying out the trash. Follow-up note 01/06/2022: She feels good at this point. monitoring specialist showed average heart rate in the 90s. Minimal heart rate 57 and maximum heart rate 160s. Essentially, in incessant atrial fibrillation. She denies any chest pain, shortness breath, syncope, presyncope, paroxysmal nocturnal dyspnea, orthopnea, edema or palpitations. Follow-up with [facility] 04/09/2022: She is here for 3 month follow-up and has no cardiac concerns. Her PCP has been treating her for gout. A friend who is a nurse suggested she try nasal pillows for her CPAP instead of a mask. Follow-up note 08/26/2022: She does have some intermittent lower extremity edema at times but otherwise no chest pain, shortness breath, syncope, presyncope, paroxysmal nocturnal dyspnea orthopnea, palpitations. No bleeding problems. Follow-up note 03/04/2023: She did have 1 episode of palpitations lasting about 5-10 minutes in which she felt her heart was racing. She did feel dizzy at that time. Blood sugar was thought to be lowat that time also. Otherwise she is not had any further palpitations. She has no syncope, chest pain, shortness breath, paroxysmal nocturnal dyspnea orthopnea. She does have a little bit of swelling i n her legs but this is also improved. She continues to lose weight and is congratulated Follow-up note 09/09/2023: Since last visit she had a syncopal episode while urinating. She did hit her head. Did not require ER visit. Otherwise she has been feeling okay and denies any chest pain, shortness breath, paroxysmal nocturnal dyspnea, orthopnea, edema palpitations Follow-up note 03/17/2024: She denies any chest pain, shortness breath, syncope, presyncope, paroxysmal nocturnal dyspnea, orthopnea, edema or palpitations. Office visit with [facility]IC THERAPIST 09/18/2024: She fell at home 2 weeks ago when she was carrying things inside from her car. She dropped what she was carrying when she lost her footing and fell backward onto concrete. She had a 2nd fall 3 days ago when she tripped over a parking block and fell forward. This resulted in an ER visit treated for contusion of the right eye and fractured right wrist. In the ER herBP was 196/124 and 220/117. She comes to the office today accompanied by her daughter. Her blood pressure was high over the weekend at home as well with systolic 220s to 250s, diastolic 110s to 150, and she had headache. She states her balance is horrible. She denies syncope or near-syncope. She got very sick with COVID in late July and felt ill with it for 4-5 weeks with lot of coughing and congestion. Ever since then her daughter noticed she has dyspneic on exertion just walking from room to room in the house. Her feet have been swollen for months but seem worse recently. She sees Dr. Prescott for CKD and reports that her creatinine ranges 2.0 to 2.7. She has been taking furosemide 20 mg daily. Medical History: Past Medical History: Diagnosis Date Atrial fibrillation (HCC) Hyperlipidemia Hypertension Past Surgical History: Procedure Laterality Date HYSTERECTOMY N/A 08/10/1992 Social History Tobacco Use Smoking Status Never Smokeless Tobacco Current Social History Tobacco Use Smoking status: Never Smokeless tobacco: Current Substance and Sexual Activity Drug use: Never Sexual activity: None Alcohol Use: Not At Risk (12/13/2019) AUDIT-C Frequency of Alcohol Consumption: Never Average Number of Drinks: Not on file Frequency of Binge Drinking: Not on file Family History Problem Relation Age of Onset Heart disease Mother Heart attack Father Cancer Brother No Known Problems Maternal Grandmother Diabetes Maternal Grandfather Review of Systems Constitutional: Positive for weight gain. Negative for malaise/fatigue and weight loss. Cardiovascular: Positive for dyspnea on exertion and leg swelling. Negative for chest pain, near-syncope, orthopnea, palpitations, paroxysmal nocturnal dyspnea and syncope. Respiratory: Negative for cough and sleep disturbances due to breathing. Hematologic/Lymphatic: Negative for bleeding problem. Does not bruise/bleed easily. Neurological: Positive for headaches and loss of balance. Vital Signs: BP 136/66 (BP Location: Left arm, Patient Position: Sitting) Pulse 61 Ht 162.6 cm (5' 4 ) Wt 93 kg (205 lb) SpO2 95% BMI 35.19 kg/m?? Physical Exam Constitutional: General: She is not in acute distress. Appearance: She is well-developed. HENT: Head: Normocephalic and atraumatic. Eyes: General: No scleral icterus. Conjunctiva/sclera: Conjunctivae normal. Neck: Vascular: No JVD. Trachea: No tracheal deviation. Cardiovascular: Rate and Rhythm: Normal rate and regular rhythm. Heart sounds: Normal heart sounds. No murmur heard. Comments: Rate 62 bpm Pulmonary: Effort: Pulmonary effort is normal. No respiratory distress. Breath sounds: Normal breath sounds. Comments: Lungs clear Musculoskeletal: Right lower leg: Edema present. Left lower leg: Edema present. Comments: Bilateral lower extremity 2+ firm edema extending to knees. Right forearm in a cast. Skin: General: Skin is warm and dry. Comments: Ecchymosis around right eye Neurological: Mental Status: She is alert and oriented to person, place, and time. Psychiatric: Mood and Affect: Mood normal. Behavior: Behavior normal. Allergies Allergen Reactions Sulfa (Sulfonamide Antibiotics) Rash Current Outpatient Medications: amitriptyline (ELAVIL) 25 mg tablet, TK 1 T PO HS, Disp: , Rfl: ascorbic acid (VITAMIN C) 250 mg tablet, Take 1 tablet (250 mg total) by mouth daily, Disp: , Rfl: atorvastatin (LIPITOR) 10 mg tablet, Take 1 tablet (10 mg total) by mouth daily, Disp: , Rfl: BASAGLAR 100 unit/mL (3 mL) pen for injection, , Disp: , Rfl: cinnamon bark 500 mg capsule, Take 2 capsules (1,000 mg total) by mouth daily, Disp: , Rfl: dilTIAZem CD 120 mg 24 hr capsule, TAKE 1 CAPSULE(120 MG) BY MOUTH DAILY, Disp: 30 capsule, Rfl: 11 echinacea 400 mg capsule, Take 2 capsules by mouth daily, Disp: , Rfl: Eliquis 5 mg tablet, TAKE 1 TABLET BY MOUTH TWICE A DAY, Disp: 180 tablet, Rfl: [address] (NexIUM) 20 mg capsule, Take 1 capsule (20 mg total) by mouth daily before breakfast, Disp: , Rfl: febuxostat (ULORIC) 40 mg tablet, Take 1 tablet (40 mg total) by mouth daily, Disp: , Rfl: furosemide (LASIX) 20 mg tablet, TAKE 1 TABLET BY MOUTH EVERY DAY NEEDED FOR SWELLING, Disp: 90 tablet, Rfl: 2 glimepiride (AMARYL) 1 mg tablet, Take 2 tablets (2 mg total) by mouth daily before breakfast, Disp: , Rfl: HYDROcodone-acetaminophen (NORCO) 5-325 mg per tablet, TAKE 1 TABLET BY MOUTH EVERY 6 HOURS FOR 3 DAYS NEEDED FOR PAIN, Disp: , Rfl: levothyroxine (SYNTHROID) 100 mcg tablet, Take 1 tablet (100 mcg total) by mouth daily, Disp: , Rfl: metoprolol tartrate (LOPRESSOR) 50 mg immediate release tablet, Take 1 tablet (50 mg total) by mouth 2 (two) times a day, Disp: 180 tablet, Rfl: 3 UNABLE TO FIND, Take 1 each by mouth 2 (two) times a day Ginko Biloba 3000 mg, Disp: , Rfl: Ozempic 0.25 mg or 0.5 mg(2 mg/1.5 mL) pen injector injection, ADMINISTER 0.25 MG UNDER THE SKIN WEEKLY FOR 4 DOSES (Patient not taking: Reported on 09/18/2024), Disp: , Rfl: No results found for: POTASSIUM , BUNSER , CREATININE , EGFR , CHOL , TRIG , LDL , LDLCALC , HDL No results found for: WBC , HGB , HCT , MCV , PLT Recent Results (from the past 4 hours) POCT lipid panel Collection Time: 09/18/24 11:10 AM Result Value Ref Range Cholesterol, POC 128 mg/dL HDL, POC 48 mg/dL Triglycerides, POC 109 mg/dL LDL Cholesterol POC 57 mg/dL Chol/HDL Ratio, POC 1.2 Non-HDL Cholesterol, POC 79 mg/dL Cholesterol Total, POC 128 mg/dL Lab Results Component Value Date POCCHOL 128 09/18/2024 POCHDL 48 09/18/2024 POCTRIG 109 09/18/2024 POCLDL 57 09/18/2024 POCNONHDL 79 09/18/2024 POCCHLPL 128 09/18/2024 Assessment: Diagnoses and all orders for this visit: Dyspnea on exertion - Transthoracic Echo (TTE) Complete W Doppler/CF; Future Edema, lower extremity Hypertension associated with diabetes (HCC) Paroxysmal atrial fibrillation (HCC) Chronic anticoagulation History of fall Lipid screening - POCT lipid panel Plan/Recommendations: She has worsening dyspnea on exertion, lower extremity edema and weight gain more prominent lately since being very sick with COVID in late July. I will set her up for an echocardiogram to assess for a viral cardiomyopathy. Due to her CKD, I will reach out to her stoker erector and servicer before up titratingher diuretic. Further recommendations will follow after the echocardiogram. She had some very elevated blood pressure readings the day of her fall and a couple days after. Blood pressure reading in the office today is normal. Continue metoprolol, diltiazem and furosemide thesame for now, and if she continues to have elevated blood pressure we will reassess. Rhythm is regular on exam today even though she felt some shortness of breath while I auscultated her heart, I am doubtful that her atrial fibrillation is involved with her current problems. Continuemetoprolol and Eliquis. I reminded her she is at a higher risk for significant injuries because of her fall. I recommend that she reach out to PCP for a physical therapy referral to address her balance problems and address her gait. She did have a CT of her head on Wednesday after her fall and there was no acute pathology. It should also be kept in mind that untreated sleep apnea may be contributing to her malaise. She could also have long COVID. I would like to see her back in the office for reassessment in 6-8 weeks and we will plan her future follow-up with Dr. Rajan in 6 months as well. 09/18/2024 ARASH Pgeuero- Nurse Practitioner with [facility] Cardiology This note is dictated and transcribed using [employer] Software. Knowledge Engineer variancesmay occur. Despite proofreading, typographical errors may occur. documented in this encounter Plan of Treatment Scheduled Orders Name Type Priority Associated Diagnoses Order Schedule Transthoracic Echo (TTE) Complete W Doppler/CF Echocardiography Routine Dyspnea on exertion Expected: 09/25/2024 (Approximate), Expires: 12/19/2025 documented as of this encounter Procedures Procedure Name Priority Date/Time Associated Diagnosis Comments POCT LIPID PANEL Routine 09/18/2024 11:1 0 AM CDT Lipid screening documented in this encounter Results * POCT lipid panel (09/18/2024 11:10 AM CDT) Cholesterol, POC 128 mg/dL HDL, POC 48 mg/dL Triglycerides, POC 109 mg/dL LDL Cholesterol POC 57 mg/dL Chol/HDL Ratio, POC 1.2 Non-HDL Cholesterol, POC 79 mg/dL Cholesterol Total, POC 128 mg/dL Capillary blood 09/18/2024 1 1:10 AM CDT Corin Parks EXPRESSIVE MUSIC THERAPIST POINT OF CARE TEST ORDERA BLES Final Result documented in this encounter Visit Diagnoses Diagnosis Dyspnea on exertion Other dyspnea and respiratory abnormality Edema, lower extremity Hypertension associated with diabetes (HCC) Unspecified essential hypertension Paroxysmal atrial fibrillation (HCC) Atrial fibrillation Chronic anticoagulation Encounter for long-term (current) use of anticoagulants History of fall Personal history of fall Lipid screening Screening for lipoid disorders documented in this encounter Historical Medications * This list may reflect changes made after this encounter. HYDROcodone-aceta minophen (NORCO) 5-325 mg per tablet TAKE 1 TABLET BY MOUTH EVERY 6 HOURS FOR 3 DAYS NEEDED FOR PAIN 09/16/2024 added in this encounter Care Teams Phlebotomy Services Representative Relationship Specialty Start Date End Date Maxime Henning MD [address] [facility] [address] [place] [address] PCP - General Family Medicine 12/11/19 documented as of this encounter
--- OUTSIDE RECORDS SUMMARY | 2024-09-18 17:45 | XMS_ITS | Encounter Summary ---
Author Organization [facility] Healthcare Address [address] [place] [address] Care Team Providers Care Plane Tender Name Role Phone Maxime Henning MD Primary Care Provider Encounter Details Date Type Department Care Team (Late st Contact Info) Description 09/18/2024 Telephone [facility] Medical Group Cardiology [address] [facility] [address] [place] [address] Corin Parks NP [address] [place] [address] Social History Tobacco Use Types Packs/Day Years Used Date Smoking Tobacco: Never Smokeless Tobacco: Current Alcohol Use Standard Drinks/Week Comments Never 0 [...] on file 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 Corin Parks, [facility] Clinical Pool I saw this patient in the office today who has worsening shortness of breath and lower extremity edema. I would like to increase her furosemide from 20 mg daily to 40 mg daily[address] She sees Dr. Prescott for CKD. Can you please call his office and leave a message asking if they can send us the most recent BMP and ask if Dr. Prescott would be okay with me increasing her furosemide? Thank you. Spoke with Genie's office, requested recent BMP and LM for doctor with question from CT. Providedour backline for response. documented in this encounter Plan of Treatment Not on file documented as of this encounter Visit Diagnoses Not on filedocumented in this encounter Care Teams Plane Tender Relationship Specialty Start Date End Date Maxime Henning MD [address] [address] PCP - General Family Medicine 12/11/19 documented as of this encounter
--- OUTSIDE RECORDS SUMMARY | 2024-09-18 17:45 | XMS_ITS | Referral Summary ---
Author Organization [facility] [address] [place] [address] [address] [facility] [address] [place] [address] Care Team Providers Care Manager Life Name Role Phone Maxime Henning MD Primary Care Provider Encounters Date Type Department Care Team Description 09/18/2024 Telephone [facility] Medical [facility] Cardiology [address] [facility] [address] [place] [address] Corin Parks NP 09/18/2024 10:30 AM CDT Office Visit [facility] Cardiology [address] [place] [address] [address] [place] [address] Corin Parks NP Dyspnea on exertion; Edema, lower extremity; Hypertension associated with diabetes (HCC); Paroxysmal atrial fibrillation (HCC); Chronic anticoagulation; History of fall; Lipid screening from Last 3 Months Allergies Active Allergy Reactions Criticality Noted Date [...] on file 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
--- NOTE | 2024-09-18 18:04 | PC.NURSE ---
Pt very difficult stick due to poor vasculature and only having use of one arm (splint/injury on RUE). Unsuccessful attempts for labs x 5 sticks between chemistry laboratory technician/RNs. Pt required US guided IV placement for labs. Labs sent down, awaiting results then plan for admission. Pt's BP 215/90 currently, has gradually been going up this afternoon. Pt reports her pain is under control at this time and continues to be drowsy but easily arousable after pain medications. Denies any new symptoms related to HTN. Pt reports her night time antihypertensives are due in approx 2 hours, will speak with MD Raymundo regarding BP.
[2024-09-18 18:06] LABS: Basophils Percent Auto 0.3 % (0.2-1.2); Eosinophils Percent Auto 0.1 % (0-4.4); Hematocrit 31.8 % (37.0-47.0); Hemoglobin 10.2 g/dL (12.0-15.0); Immature Granulocyte Absolute 0.05 K/mm3 (0.00-0.031); Immature Granulocyte Percent A 0.3 % (0-0.5); Lymphocytes Absolute Auto 0.67 K/mm3 (0.9-3.2); Lymphocytes Percent Auto 4.5 % (18.3-44.2); Mean Corpuscular HGB Conc 32.1 g/dl (32-36); Mean Corpuscular Hemoglobin 30.7 pg (26-34); Mean Corpuscular Volume 95.8 fl (80-100); Mean Platelet Volume 9.7 fl (7.4-10.4); Monocytes Absolute Auto 0.3 K/mm3 (0.1-0.6); Monocytes Percent Auto 2.3 % (2.6-8.5); Neutrophils Absolute Auto 13.6 K/mm3 (1.3-6.7); Neutrophils Percent Auto 92.5 % (45.5-73.1); Platelet Count Result 255 k/mm3 (150-375); Red Blood Count 3.32 M/mm3 (4.2-5.4); Red Cell Distribution Width 13.8 % (11.5-14.5); White Blood Count 14.8 K/mm3 (4.5-10.0)
[2024-09-18 18:28] LABS: INR 1.4; Prothrombin Time 17.9 Seconds (11.1-14.7)
[2024-09-18 18:29] LABS: Partial Thromboplastin Time 25.4 Seconds (22.3-36.8)
--- NOTE | 2024-09-18 19:36 | PM.IMHP ---
H&P: HPI History of Present Illness Date/Time: 09/18/24 19:36 Chief Complaint: Fall and weakness Narrative: 74-year-old female past medical history of diabetes type 2, CKD stage 4, hypertension, atrial fibrillation and hypothyroidism presents the hospital after a fall. Patient was here on 09/16/2024 after a fall found to have a right wrist fracture and was sent home with her daughter. Today the patient had another fall with right arm pain. Patient states that she recently had COVID and had a fall at that time too. So she is total of 3 falls in the last couple months. In the ED the patient had leukocytosis of 14.8, UA was turbid with 1+ leukocyte esterase and 2+ bacteria. Upper extremity CT shows impacted fracture the proximal right humerus and possible distal ulnar fracture. CT head shows no acute process.. Review of Systems Review of Systems: 12 systems were reviewed and are negative except for as per HPI. [facility] Past Medical History Medical History Diabetes with retinopathy Hypertensive CKD (chronic kidney disease) Long-term insulin use Hypertension LUZ MARIA (obstructive sleep apnea) Afib Diabetes mellitus type 2, uncontrolled Chronic kidney disease, stage 4 (severe) Hypothyroidism Transient cerebral ischemia Surgical History Surgical History Closed right hip fracture s/p ORIF Status post hysterectomy with oophorectomy Family History Family History Father Patient's father is Sibling Patient's brother is Social History Social History Social History: , lives alone, retired Smoking status: Never smoker Second hand tobacco smoke exposure: No Alcohol intake: never Substance use: never Substance use type: does not use Do You Feel Safe in your Home?: Yes Lack of Transportation: No Lack of Food: Never True Current Housing: I Have Housing Concerned About Future Housing: No Difficulty Paying Gas/Electric Bills: No Difficulty Paying for Meds: No Currently Unemployed: No Education: High School Diploma/GED Difficulty w/ Childcare or Family Care: No Living arrangements: with family Occupation/Education: occupation Additional occupation/education comments: worked at [employer] before retiring Gender identity (if verbalized by the patient): Female Sexual Orientation (if Verbalized by the Patient): Straight or Heterosexual Spiritual care concerns: No Meds Home Medications and Allergies Home Medications ?Medication ?Instructions ?Recorded ?Confirmed ?Type ascorbic acid (vitamin C) 125 mg 125 mg PO DAILY 08/03/19 09/18/24 History chewable tablet cinnamon bark 500 mg capsule 1,000 mg PO BID 08/03/19 09/18/24 History (Cinnamon) esomeprazole magnesium 20 mg 20 mg PO DAILY 08/03/19 09/18/24 History capsule,delayed release (Nexium 24HR) echinacea 400 mg capsule 400 mg PO BID 01/19/20 09/18/24 History blood-glucose meter #1 ea 04/24/21 09/18/24 Rx lancets #100 ea 04/24/21 09/18/24 Rx diltiazem HCl 120 mg 120 mg PO DAILY #90 caps 04/15/22 09/18/24 Rx capsule,extended release 24 hr atorvastatin 10 mg tablet 10 mg PO DAILY #90 tabs 11/16/23 09/18/24 Rx metoprolol tartrate 50 mg tablet 50 mg PO BID #180 tabs 01/14/24 09/18/24 Rx blood sugar diagnostic (OneTouch #100 ea 05/09/24 09/18/24 Rx Ultra Test strips) pen needle, diabetic 29 gauge x #100 ea 05/10/24 09/18/24 Rx 1/2 (BD Ultra-Fine Original Pen Needle) apixaban 5 mg tablet (Eliquis) 5 mg PO BID #180 tabs 06/12/24 09/18/24 Rx levothyroxine 100 mcg tablet See Rx Instructions .Route 06/12/24 09/18/24 Rx .COMPLEX #90 tabs glimepiride 1 mg tablet 2 mg (2 x 1 mg) PO QAM #180 tabs 06/26/24 09/18/24 Rx ondansetron HCl 4 mg tablet 4 mg PO Q8H PRN nausea and 06/28/24 09/18/24 Rx vomiting #30 tabs amitriptyline 25 mg tablet 25 mg PO DAILY #90 tabs 07/27/24 09/18/24 Rx furosemide 20 mg tablet 20 mg PO QAM #90 tabs 09/11/24 09/18/24 Rx hydrocodone 5 mg-acetaminophen 325 1 tablet PO Q8H PRN pain #12 tabs 09/18/24 Rx mg tablet insulin glargine 100 unit/mL (3 15 unit subcut QPM 09/18/24 09/18/24 History mL) subcutaneous pen (Basaglar KwikPen U-100 Insulin) Allergies Allergy/AdvReac Type Severity Reaction Status Date / Time Sulfa (Sulfonamide Allergy Unknown Hives Verified 09/18/24 14:04 Antibiotics) Vital Signs Vital Signs - 24 hr 09/18/24 13:50 09/18/24 14:01 09/18/24 14:02 Temperature 97.9 F Pulse Rate 59 L 82 Respiratory Rate 20 18 Blood Pressure 158/81 H 153/76 H Pulse Oximetry 97 90 95 Oxygen Delivery Room Air 09/18/24 14:15 09/18/24 14:30 09/18/24 14:32 Temperature Pulse Rate 79 Respiratory Rate 17 Blood Pressure 182/92 H Pulse Oximetry 95 97 97 Oxygen Delivery 09/18/24 15:06 09/18/24 16:30 09/18/24 16:45 Temperature Pulse Rate 74 Respiratory Rate 19 Blood Pressure 158/70 H Pulse Oximetry 98 98 94 Oxygen Delivery 09/18/24 16:55 09/18/24 17:58 09/18/24 18:00 Temperature Pulse Rate 83 74 Respiratory Rate 14 16 Blood Pressure 183/87 H 215/90 H Pulse Oximetry 93 97 97 Oxygen Delivery 09/18/24 18:01 Temperature Pulse Rate Respiratory Rate Blood Pressure Pulse Oximetry 98 Oxygen Delivery Exam Narrative: General: well appearing, appears stated age. HEENT: normocephalic, atraumatic. Mucous membranes moist. EOMI, PERRLA, bilateral sclera anicteric, no conjunctival injection. Neck supple without JVD, lymphadenopathy, or bruit. Respiratory: clear to ascultation bilaterally. No rales/rhonic/wheezes. Cardiovascular: Regular rate and rhythm, normal S1-S2 upon ascultation. No murmurs, rubs, or clicks. PMI is nondisplaced, capillary refill less than 3 second. Abdomen: Soft, round, no pulsatile masses, nondistended and nontender. No rebound, no guarding. No CVA tenderness, no hepatosplenomegaly. Bowel sounds present to all four quadrants. No high pitch or tinkling sounds, resonant to percussion. Extremities: No cyanosis, clubbing, . Pulses are palpable 2/2. Right upper extremity in sling and splint limited range of motion due to acute pain. Lower extremity edema Neuro: Alert and orientated x 4. PERRLA. Cranial nerves 2-12 intact without focal deficit. Skin: Warm, dry, and intact, without rash, erythema, or lesion. Psych: pleasant, cooperative, normal speech, normal affect, no hallucinations, no dysarthia H&P: Results Labs Labs: Short CBC 09/18/24 Range/Units 17:57 WBC 14.8 H (4.5-10.0) K/mm3 Hgb 10.2 L (12.0-15.0) g/dL Hct 31.8 L (37.0-47.0) % Plt Count 255 (150-375) k/mm3 Urine 09/18/24 Range/Units 16:16 Urine Color Yellow (Yellow) Urine Appearance Turbid H (Clear) Urine pH 5.0 (5.0-9.0) Ur Specific [place] 1.015 (1.001-1.035) Urine Protein 3+ H (Negative) mg/dL Urine Glucose (UA) Negative (Negative) mg/dL Assessment and Plan Assessment and plan (1) Fall: Code(s): W19.XXXA - Unspecified fall, initial encounter Status: Acute Assessment and Plan: PT OT evaluate and treat Telemetry monitoring Orthostatic vital signs Echocardiogram pending (2) UTI (urinary tract infection): Code(s): N39.0 - Urinary tract infection, site not specified Status: Acute Assessment and Plan: IV Rocephin (3) Type 2 diabetes mellitus with stage 4 chronic kidney disease: Qualifiers: Diabetes mellitus ocean transportation intermediary insulin use: with ocean transportation intermediary use Qualified Code(s): E11.22 - Type 2 diabetes mellitus with diabetic chronic kidney disease; N18.4 - Chronic kidney disease, stage 4 (severe); Z79.4 - penitentiary (current) use of insulin Code(s): E11.22 - Type 2 diabetes mellitus with diabetic chronic kidney disease; N18.4 - Chronic kidney disease, stage 4 (severe) Status: Acute Assessment and Plan: Diabetic diet Accu-Cheks a.c. HS Home dose insulin (4) Hypothyroidism: Code(s): E03.9 - Hypothyroidism, unspecified Status: Acute Assessment and Plan: Continue home medications (5) Distal end of ulna fracture, closed: Code(s): S52.609A - Unspecified fracture of lower end of unspecified ulna, initial encounter for closed fracture Status: Acute Assessment and Plan: Orthopedics consulted pending recommendations Splints (6) Closed fracture of proximal end of right humerus: Code(s): S42.201A - Unspecified fracture of upper end of right humerus, initial encounter for closed fracture Status: Acute Assessment and Plan: Orthopedics consulted pending recommendations Sling (7) Edema: Code(s): R60.9 - Edema, unspecified Status: Acute Assessment and Plan: Continue home Lasix Echocardiogram pending Quality VTE Prophylaxis VTE prophylaxis: mechanical ordered and pharmacologic ordered Hospitalist MIPS Advance Care Plan I have confirmed that the patient's Advanced Care Plan is present, code status is documented, or surrogate decision maker is listed in patient medical record.: Yes Medication Reconciliation I have utilized all available resources to obtain, update and review the patients current medications (includes all prescriptions, OTC, herbals, cannabis, and nutritional supplements).: Yes
[2024-09-18 19:49] LABS: Anion Gap 12 mmol/L (4-12); Blood Urea Nitrogen 38 mg/dL (7-17); Calcium 10.3 mg/dL (8.4-10.2); Carbon Dioxide 18 mmol/L (22-30); Chloride 108 mmol/L (98-107); Estimated CRCL calculation 17 ml/min; Estimated Glomerular Filt Rate 16; Glucose 153 mg/dL (65-110); Potassium 4.2 mmol/L (3.4-5.0); Sodium 138 mmol/L (137-145)
[2024-09-18] MEDS: METOPROLOL TARTRATE 50 MG TAB PO (19:49)
[2024-09-18] MEDS: INSULIN GLARGINE (*BKC) 100 UNITS/ML 15 UNITS SUB-Q (21:12)
[2024-09-18] MEDS: HYDROmorphone HCL INJ (*CRX) 1 MG/ML SYR 0.5 MG IV PUSH (21:14)
--- NOTE | 2024-09-18 21:50 | ADMGEN ---
This patient, Yesica Marcial, was admitted to Medical Room 255-. Patient/family oriented to hospital policies and general routines including ID bracelet, bed and alarms, visiting hours, pain management, procedures, bathroom and other care routines, personal items, smoking policy, room service/diet, and visiting hours. Information on how to activate the Rapid Response Team has been discussed. Patient/Family are encouraged to report perceived risks to care and to ask questions if they do not understand what they are told or what they should do.
[2024-09-18] MEDS: APIXABAN 5 MG TABLET PO (23:03)
[2024-09-19] VITALS (11 sets, daily range): BP systolic 145–221; BP diastolic 67–98; PULSE 70–89; RESP 18–20; TEMP 36–37; O2SAT 94–96
--- NOTE | 2024-09-19 | ECHO_ITS ---
Patient Info Name: Yesica Marcial Age: 74 years : 1950 Gender: Female Ht: 64 in Wt: 205 lbs BSA: 2.09 m2 HR: 76 bpm BP: 221 / 83 mmHg Heart Rhythm: Sinus Rhythm Technical Quality: Good Exam Date: 09/19/2024 10:35 AM Exam Location: Echo Lab Patient Status: Inpatient Admit Date: 09/18/2024 Staff Ordering Physician: Rochelle Blanco APRN Employee Services Manager: Chastity Foster RDCS Attending Provider: Lm Gunn MD Referring Physician: Bella FORMAN; Exam Type: CA echo doppler color flow Study Info Indications - Dizzy fall Complete two-dimensional, color flow and Doppler transthoracic echocardiogram is performed. Summary 1. Left ventricular chamber dimension is normal. 2. Left ventricular systolic function is normal, estimated at 65-70%. 3. There is moderately increased left ventricular wall thickness. 4. The left ventricular diastolic function is grade I diastolic dysfunction. 5. Right ventricular systolic function is normal. 6. Left atrial chamber dimension is moderately enlarged. 7. Right atrial chamber dimension is mildly enlarged. 8. There is mild mitral valve regurgitation. 9. There is mild tricuspid valve regurgitation. 10. There is trivial pericardial effusion. Left Ventricle Left ventricular chamber dimension is normal. Left ventricular systolic function is normal, estimated at 65-70%. There is moderately increased left ventricular wall thickness. The left ventricular diastolic function is grade I diastolic dysfunction. Right Ventricle Right ventricular chamber dimension is normal. Right ventricular systolic function is normal. Left Atria Left atrial chamber dimension is moderately enlarged. Right Atria Right atrial chamber dimension is mildly enlarged. Atrial Septum Intact interatrial septum visualized by color flow imaging. Aortic Valve The aortic valve is trileaflet. There is no aortic valve stenosis. There is no aortic valve regurgitation. There is mild aortic valve calcification. Pulmonic Valve The pulmonic valve is not well visualized. There is trace pulmonic regurgitation. Mitral Valve There is mild mitral valve regurgitation. Tricuspid Valve There is mild tricuspid valve regurgitation. Pericardium/Pleural There is trivial pericardial effusion. Inferior Vena Cava Inferior vena cava is not well visualized. Aorta The aortic root size at the sinus of Valsalva is normal. Left Ventricular Outflow Tract Name Value Normal LVOT 2D LVOT Diameter 2.0 cm LVOT Doppler LVOT Peak Gradient 4 mmHg LVOT Mean Gradient 2 mmHg LVOT VTI 22 cm LVOT VTI/AV VTI Ratio 0.9 LVOT Stroke Volume 71 ml LVOT CO 12.9 l/min LVOT CI 6.2 l/min/m2 Mitral Valve Name Value Normal MV Doppler MV Decel [place] 641 cm/s2 MV PHT 51 ms MV Area (PHT) 4.3 cm2 4.0-5.0 MV Diastolic Function MV E Peak Velocity 114 cm/s MV A Peak Velocity 89 cm/s MV E/A 1.3 MV Decel Time 177 ms MV Annular TDI MV E/e' (Septal) 22.4 <=8.0 MV E/e' (Lateral) 17.7 <=8.0 MV E/e' (Average) 20.1 Tricuspid Valve Name Value Normal TV Regurgitation Doppler TR Peak Velocity 240 cm/s TR Peak Gradient 23 mmHg Estimated PAP/RSVP RV Systolic Pressure 33 mmHg <36 Aorta Name Value Normal Ascending Aorta Ao Root Diameter (MM) 3.1 cm Ao Root Diam Index (MM) 1.5 cm/m2 Aortic Valve Name Value Normal AV Doppler AV Peak Velocity 124 cm/s AV Peak Gradient 6 mmHg AV Mean Gradient 3 mmHg AV VTI 25 cm AV Area (Cont Eq VTI) 2.9 cm2 >=3.0 AV Area (Cont Eq Harley) 2.5 cm2 AV Regurgitation 2D LVOT Area 3.3 cm2 Ventricles Name Value Normal LV Dimensions 2D/MM IVS Diastolic Thickness (2D) 1.4 cm 0.6-1.0 LVID Diastole (2D) 4.6 cm 3.8-5.2 LVIW Diastolic Thickness (2D) 1.4 cm 0.6-0.9 LVID Systole (2D) 2.7 cm 2.2-3.5 LVOT Diameter 2.0 cm LV Mass (2D Cubed) 265.93 g 67.00-162.00 LV Mass Index (2D Cubed) 127 g/m2 43-95 Relative Wall Thickness (2D) 0.60 LV Fractional Shortening/Ejection Fraction 2D/MM LV Fractional Shortening (2D) 43 % 27-45 LV EF (2D Teicholz) 74 % 54-74 LV Diastolic Volume (4C MOD) 99 ml LV EF (4C MOD) 67 % LV Diastolic Volume (2C MOD) 86 ml LV EF (2C MOD) 70 % LV Diastolic Volume (BP MOD) 92 ml 46-106 LV Diastolic Volume Index (BP MOD) 44 ml/m2 29-61 LV Systolic Volume (BP MOD) 30 ml 14-42 LV Systolic Volume Index (BP MOD) 15 ml/m2 8-24 LV EF (BP MOD) 67 % 54-74 LV Diastolic Length (4C) 6.8 cm LV Systolic Length (4C) 5.8 cm LV Stroke Volume (4C MOD) 66 ml RV Dimensions 2D/MM RVID Diastole (2D) 4.3 cm 2.5-3.5 Atria Name Value Normal LA Dimensions LA Volume (4C A-L) 68 ml LA Volume (BP A-L) 57 ml RA Dimensions RA Area (4C) 17.2 cm2 <=18.0 Report Signatures
[2024-09-19] MEDS: hydrALAZINE HCL 20 MG/ML VIAL 10 MG IV PUSH (03:50)
[2024-09-19] MEDS: oxyCODONE HCL (*CRX) 5 MG TAB IR 10 MG PO ×3 (03:53→15:47)
[2024-09-19] MEDS: LEVOTHYROXINE SODIUM 100 MCG TABLET PO (05:50)
--- NOTE | 2024-09-19 06:21 | PCCARD ---
CHANGED ECHO ORDER WITH BUBBLE STUDY TO REGULAR ECHO. NO BUBBLE STUDIES ON COVID POSITIVE PATIENTS
[2024-09-19] MEDS: METOPROLOL TARTRATE 50 MG TAB PO ×2 (08:22→21:01)
[2024-09-19] MEDS: ACETAMINOPHEN 325 MG TABLET 650 MG PO ×3 (08:22→21:01)
[2024-09-19] MEDS: FUROSEMIDE 20 MG TABLET PO (08:22)
[2024-09-19] MEDS: ATORVASTATIN 10 MG TABLET PO (08:23)
[2024-09-19] MEDS: GLIMEPIRIDE 2 MG TABLET PO (08:23)
[2024-09-19 08:50] LABS: Glucose Point of Care 97 mg/dl (65-105)
--- NOTE | 2024-09-19 11:36 | PCOTNOTE ---
Pt with a new RUE humerus fx and is pending an ortho consult at this time. Will continue to follow.
[2024-09-19 12:12] LABS: Glucose Point of Care 138 mg/dl (65-105)
--- NOTE | 2024-09-19 13:57 | P.CONOP_ITS ---
Assessment and Plan Assessment and plan (1) Closed fracture of proximal end of right humerus: Qualifiers: Encounter type: initial encounter Fracture morphology: u nspecified fracture morphology Qualified Code(s): S42.201A - Unspecified fracture of upper end of right humerus, initial encounter for closed fracture < PARDEEP Zambrano - Last Filed: 09/19/24 14:06> Code(s): S42.201A - Unspecified fracture of upper end of right humerus, initial encounter for closed fracture <PARDEEP Zambrano - Last Filed: 09/19/24 14:06> Status: Acute <PARDEEP Zambrano - Last Filed: 09/19/24 14:06> (2) Fracture of triquetral bone of right wrist: Code(s): S62.111A - Displaced fracture of triquetrum [cuneiform] bone, right wrist, initial encounter for closed fracture <PARDEEP Zambrano - Last Filed: 09/19/24 14:06> Status: Acute <PARDEEP Zambrano - Last Filed: 09/19/24 14:06> Assessment and Plan: Acute proximal humerus fracture with mild displacement. Acute ulnar triquetral fracture occurred several days ago. The ulnar styloid fracture appears to be old. Frequent falls and balance issues. Morbid obesity. She lives alone but will is planning to go home with her daughter for assistance. The fractures can be treated conservatively. Shoulder immobilizer or sling for the shoulder and wrist splint for the triquetral fracture. Stiffness and weakness is common after proximal humerus fracture. However, overall clinical result will be acceptable. Had a nice discussion with the patient and her daughter about the risks of the fracture including malunion and need for surgery. Will follow-up x-rays in 1-2 weeks in my clinic. Okay hand wrist and elbow range of motion as tolerated. Will start formal shoulder therapy in 2-3 weeks. She may remove the shoulder immobilizer intermittently for exercise, comfort, and hygiene. <Jordi Frank MD - Last Filed: 09/19/24 17:09> History of Present Illness HPI Consult date: 09/19/24 <PARDEEP Zambrano - Last Filed: 09/19/24 14:06> 09/19/24 <Jordi Frank MD - Last Filed: 09/19/24 17:09> Chief complaint: Frequent falls, Proximal humerus fracture, Ulnar a <PARDEEP Zambrano - Last Filed: 09/19/24 14:06> Narrative: 74 y/o female patient with a significant history of HTN, Diabetes, LUZ MARIA, A.fib, CKD, hypothyroidism, and blood thinners. Patient was admitted to the hospital after multiple falls. She has fallen 3 times in the last few days. She attributes this to a UTI. The first time she fell backwards, no LOC. Second fall was forward where she injured her wrist and has a large bruise on her right eye. She was seen in the ER and a splint was placed over her wrist. The third fall, she notes she slid down a door and could not catch herself. She fell directly onto her right shoulder. Patient notes significant pain in the right shoulder and wrist. She is wearing an immobilizer sling. Patient typically lives in her home by her self. She states she sees her daughter weekly for Wednesday dinners. Typically ambulates without assistance. No shoulder or wrist pain prior to her falls. She notes she has been starting to notice some memory issues but overall she is still able to care for herself. < PARDEEP Zambrano - Last Filed: 09/19/24 14:06> Review of Systems 2 Review of Systems: All systems reviewed & are unremarkable except as noted in HPI and below <PARDEEP Zambrano - Last Filed: 09/19/24 14:06> [facility] [place] Past Medical History Medical History: Medical History Diabetes with retinopathy Hypertensive CKD (chronic kidney disease) Long-term insulin use Hypertension LUZ MARIA (obstructive sleep apnea) Afib Diabetes mellitus type 2, uncontrolled Chronic kidney disease, stage 4 (severe) Hypothyroidism Transient cerebral ischemia <PARDEEP Zambrano - Last Filed: 09/19/24 14:06> Surgical History Surgical History: Surgical History Closed right hip fracture s/p ORIF Status post hysterectomy with oophorectomy <PARDEEP Zambrano - Last Filed: 09/19/24 14:06> Family History Family History: Family History Father Patient's father is Sibling Patient's brother is <PARDEEP Zambrano - Last Filed: 09/19/24 14:06> Social History Social History: Social History Social History: , lives alone, retired Smoking status: Never smoker Second hand tobacco smoke exposure: No Alcohol intake: never Substance use: never Substance use type: does not use Do You Feel Safe in your Home?: Yes Lack of Transportation: No Lack of Food: Never True Current Housing: I Have Housing Concerned About Future Housing: No Difficulty Paying Gas/Electric Bills: No Difficulty Paying for Meds: No Currently Unemployed: No Education: High School Diploma/GED Difficulty w/ Childcare or Family Care: No Living arrangements: with family Occupation/Education: occupation Additional occupation/education comments: worked at [employer] before retiring Gender identity (if verbalized by the patient): Female Sexual Orientation (if Verbalized by the Patient): Straight or Heterosexual Spiritual care concerns: No <PARDEEP Zambrano - Last Filed: 09/19/24 14:06> Meds Home Medications and Allergies Home medications: Home Medications ?Medication ?Instructions ?Recorded ?Confirmed ?Type ascorbic acid (vitamin C) 125 mg 125 mg PO DAILY 08/03/19 09/18/24 History chewable tablet cinnamon bark 500 mg capsule 1,000 mg PO BID 08/03/19 09/18/24 History (Cinnamon) esomeprazole magnesium 20 mg 20 mg PO DAILY 08/03/19 09/18/24 History capsule,delayed release (Nexium 24HR) echinacea 400 mg capsule 400 mg PO BID 01/19/20 09/18/24 History blood-glucose meter #1 ea 04/24/21 09/18/24 Rx lancets #100 ea 04/24/21 09/18/24 Rx diltiazem HCl 120 mg 120 mg PO DAILY #90 caps 04/15/22 09/18/24 Rx capsule,extended release 24 hr atorvastatin 10 mg tablet 10 mg PO DAILY #90 tabs 11/16/23 09/18/24 Rx metoprolol tartrate 50 mg tablet 50 mg PO BID #180 tabs 01/14/24 09/18/24 Rx blood sugar diagnostic (OneTouch #100 ea 05/09/24 09/18/24 Rx Ultra Test strips) pen needle, diabetic 29 gauge x #100 ea 05/10/24 09/18/24 Rx 1/2 (BD Ultra-Fine Original Pen Needle) apixaban 5 mg tablet (Eliquis) 5 mg PO BID #180 tabs 06/12/24 09/18/24 Rx levothyroxine 100 mcg tablet See Rx Instructions .Route 06/12/24 09/18/24 Rx .COMPLEX #90 tabs glimepiride 1 mg tablet 2 mg (2 x 1 mg) PO QAM #180 tabs 06/26/24 09/18/24 Rx ondansetron HCl 4 mg tablet 4 mg PO Q8H PRN nausea and 06/28/24 09/18/24 Rx vomiting #30 tabs amitriptyline 25 mg tablet 25 mg PO DAILY #90 tabs 07/27/24 09/18/24 Rx furosemide 20 mg tablet 20 mg PO QAM #90 tabs 09/11/24 09/18/24 Rx hydrocodone 5 mg-acetaminophen 325 1 tablet PO Q8H PRN pain #12 tabs 09/18/24 Rx mg tablet insulin glargine 100 unit/mL (3 15 unit subcut QPM 09/18/24 09/18/24 History mL) subcutaneous pen (Wendiaglfrancisco Soto U-100 Insulin) <PARDEEP Zambrano - Last Filed: 09/19/24 14:06> Allergies/Adverse reactions: Allergies Allergy/AdvReac Type Severity Reaction Status Date / Time Sulfa (Sulfonamide Allergy Unknown Hives Verified 09/18/24 14:04 Antibiotics) <PARDEEP Zambrano - Last Filed: 09/19/24 14:06> Vital Signs Vital Signs - 24 hr 09/18/24 14:01 09/18/24 14:02 09/18/24 14:15 Temperature Pulse Rate 82 Respiratory Rate 18 Blood Pressure 153/76 H Pulse Oximetry 90 95 95 Oxygen Delivery 09/18/24 14:30 09/18/24 14:32 09/18/24 15:06 Temperature Pulse Rate 79 74 Respiratory Rate 17 19 Blood Pressure 182/92 H 158/70 H Pulse Oximetry 97 97 98 Oxygen Delivery 09/18/24 16:30 09/18/24 16:45 09/18/24 16:55 Temperature Pulse Rate 83 Respiratory Rate 14 Blood Pressure 183/87 H Pulse Oximetry 98 94 93 Oxygen Delivery 09/18/24 17:58 09/18/24 18:00 09/18/24 18:01 Temperature Pulse Rate 74 Respiratory Rate 16 Blood Pressure 215/90 H Pulse Oximetry 97 97 98 Oxygen Delivery 09/18/24 19:49 09/18/24 20:42 09/18/24 21:46 Temperature Pulse Rate 102 H 86 84 Respiratory Rate 15 15 Blood Pressure 192/86 H 192/96 H Pulse Oximetry 100 100 Oxygen Delivery 09/18/24 22:33 09/18/24 23:31 09/19/24 03:41 Temperature 97.8 F 96.8 F L Pulse Rate 74 74 87 Respiratory Rate 20 20 20 Blood Pressure 200/83 H 221/83 H Pulse Oximetry 94 94 96 Oxygen Delivery Room Air 09/19/24 08:20 09/19/24 08:21 09/19/24 08:22 Temperature Pulse Rate 89 89 Respiratory Rate Blood Pressure 193/75 H Pulse Oximetry Oxygen Delivery Room Air <PARDEEP Zambrano - Last Filed: 09/19/24 14:06> Exam 2 Narrative: 74 y/o overweight female. No acute distr ess. Wearing immobilizer sling and short arm splint. Significant swelling in her fingers. Light touch sensation intact. Deltoid fires. Pain with any motion. <PARDEEP Zambrano - Last Filed: 09/19/24 14:06> 74 y/o morbidly obese female. No acute d istress. Wearing immobilizer sling and short arm splint. Significant swelling in her fingers. Light touch sensation intact. Deltoid fires. Pain with any motion. Moderate swelling at the anterior shoulder without instability or apparent dislocation. The wrist was exquisitely tender at the dorsum near the triquetrum. The distal ulna, ulnar styloid, and radius were nontender without deformity. Wrist motion was moderately restricted with some pain dorsally. Fingers were swollen. Wiggles strength weekly. Finger motion 50% of normal. Capillary refill brisk. Radial pulse palpable. Gentle elbow motion tolerated but limited by shoulder pain. <Jordi Frank MD - Last Filed: 09/19/24 17:09> Results Labs Result Diagrams: 09/18/24 17:57 09/18/24 19:31 <PARDEEP Zambrano - Last Filed: 09/19/24 14:06> Labs: Abnormal lab results 09/18/24 09/18/24 09/18/24 Range/Units 16:16 17:57 19:31 WBC 14.8 H (4.5-10.0) K/mm3 RBC 3.32 L (4.2-5.4) M/mm3 Hgb 10.2 L (12.0-15.0) g/dL Hct 31.8 L (37.0-47.0) % Neut % (Auto) 92.5 H (45.5-73.1) % Lymph % (Auto) 4.5 L (18.3-44.2) % [place] % (Auto) 2.3 L (2.6-8.5) % Lymph # (Auto) 0.67 L (0.9-3.2) K/mm3 Abs Immat Gran (auto) 0.05 H (0.00-0.031) K/mm3 Absolute Neuts (auto) 13.6 H (1.3-6.7) K/mm3 PT 17.9 H (11.1-14.7) Seconds Chloride 108 H (98-107) mmol/L Carbon Dioxide 18 L (22-30) mmol/L BUN 38 H (7-17) mg/dL Creatinine 2.95 H (0.7-1.0) mg/dL Estimated GFR 16 L (59 - ) Glucose 153 H (65-110) mg/dL POC Capillary Glucose (65-105) mg/dl Calcium 10.3 H (8.4-10.2) mg/dL Urine Appearance Turbid H (Clear) Urine Protein 3+ H (Negative) mg/dL Leukocyte Esterase Rfl 1+ H (Negative) SUE/UL Urine RBC 11-20 H (0-2) /hpf Urine WBC 51-100 H (0-3) /hpf Ur Squamous Epith Cells Many H (Few) /hpf Urine Bacteria 2+ H /hpf 09/19/24 Range/Units 11:57 WBC (4.5-10.0) K/mm3 RBC (4.2-5.4) M/mm3 Hgb (12.0-15.0) g/dL Hct (37.0-47.0) % Neut % (Auto) (45.5-73.1) % Lymph % (Auto) (18.3-44.2) % [place] % (Auto) (2.6-8.5) % Lymph # (Auto) (0.9-3.2) K/mm3 Abs Immat Gran (auto) (0.00-0.031) K/mm3 Absolute Neuts (auto) (1.3-6.7) K/mm3 PT (11.1-14.7) Seconds Chloride (98-107) mmol/L Carbon Dioxide (22-30) mmol/L BUN (7-17) mg/dL Creatinine (0.7-1.0) mg/dL Estimated GFR (59 - ) Glucose (65-110) mg/dL POC Capillary Glucose 138 H (65-105) mg/dl Calcium (8.4-10.2) mg/dL Urine Appearance (Clear) Urine Protein (Negative) mg/dL Leukocyte Esterase Rfl (Negative) SUE/UL Urine RBC (0-2) /hpf Urine WBC (0-3) /hpf Ur Squamous Epith Cells (Few) /hpf Urine Bacteria /hpf H & H 09/18/24 Range/Units 17:57 Hgb 10.2 L (12.0-15.0) g/dL Hct 31.8 L (37.0-47.0) % Coagulation 09/18/24 Range/Units 17:57 INR 1.4 All other labs normal. <PARDEEP Zambrano - Last Filed: 09/19/24 14:06> Diagnostic results Shoulder x-ray: image reviewed <Jordi Frank MD - Last Filed: 09/19/24 17:09> Wrist/Hand x-ray: image reviewed <Jordi Frank MD - Last Filed: 09/19/24 17:09> Wrist/Hand CT: image reviewed <Jordi Frank MD - Last Filed: 09/19/24 17:09>
--- NOTE | 2024-09-19 15:51 | P.PNIM_ITS ---
Progress Note: A&P Assessment and Plan (1) Fall: Code(s): W19.XXXA - Unspecified fall, initial encounter Status: Acute (2) UTI (urinary tract infection): Code(s): N39.0 - Urinary tract infection, site not specified Status: Acute (3) Type 2 diabetes mellitus with stage 4 chronic kidney disease: Qualifiers: Diabetes mellitus lobsterman insulin use: with jail use Qualified Code(s): E11.22 - Type 2 diabetes mellitus with diabetic chronic kidney disease; N18.4 - Chronic kidney disease, stage 4 (severe); Z79.4 - alf (current) use of insulin Code(s): E11.22 - Type 2 diabetes mellitus with diabetic chronic kidney disease; N18.4 - Chronic kidney disease, stage 4 (severe) Status: Acute (4) Hypothyroidism: Code(s): E03.9 - Hypothyroidism, unspecified Status: Acute (5) Distal end of ulna fracture, closed: Code(s): S52.609A - Unspecified fracture of lower end of unspecified ulna, initial encounter for closed fracture Status: Acute (6) Closed fracture of proximal end of right humerus: Code(s): S42.201A - Unspecified fracture of upper end of right humerus, initial encounter for closed fracture Status: Acute (7) Edema: Code(s): R60.9 - Edema, unspecified Status: Acute Plan This is a 74-year-old female presents to the ED after a fall. Over the past few months. Recent days ago on 09/16/2024 with fall forward onto her head and sustained right wrist fracture which was splinted in the ED and was discharged to follow-up with orthopedics as an outpatient basis. She had another mechanical fall and stroke her right shoulder a sliding to the ground. No syncope or loss of consciousness. No headache nausea vomiting chest pain shortness of breath fever chills. She also hit her head. She had a total of 3 falls in the last couple months Her vitals were stable except for elevated blood pressure which is chronic problem. Head CT was negative for any acute intracranial findings. Chest x-ray showed worsened airspace and interstitial opacities in the mid and lower lung zones likely atelectasis. Cardiomegaly and fracture deformity of the proximal right humerus. Upper extremity CT showed impacted fracture of the proximal metaphysis of the right humerus possible undisplaced fracture in the distal ulna. Laboratory workup showed leukocytosis of 14.8 hemoglobin 10.2 platelet count 255. UA was turbid with 1+ leukocyte esterase and 2+ bacteria. Urine WBC 50 1- 100 urine RBC 11-20. Creatinine of 2.9 set of 18 calcium of 10.3. Recurrent falls mechanical some balance issues PT OT to see telemetry monitoring. Orthostatic vital signs. Echocardiogram with EF 65-70% moderately increased left ventricular wall thickness grade 1 diastolic dysfunction. No significant valvular abnormality. Proximal humerus fracture distal ulnar fracture orthopedic to see Recurrent falls check B12 folate vitamin-D TSH. Orthostatics negative. PT OT to see. Recurrent falls. If ongoing may need to hold apixaban. No hypoglycemia reported or evidenced UTI ceftriaxone follow urine culture Type 2 diabetes on insulin LUZ MARIA Hypertension CKD stage 4 baseline creatinine in 2s. Continue to monitor Hypothyroidism History of TIA DVT prophylaxis on apixaban Code status full code Subjective Date/time seen: 09/19/24 15:51 Interval history: Chart reviewed. Denies any chest pain or shortness of breath. No cough. Patient having balance issues over the past several months. Leading to recurrent falls. Reports no back pain. Does report some urinary symptoms of UTI. No fever or chills. Review of Systems Review of Systems: All systems reviewed & are unremarkable except as noted in HPI and below Exam Narrative: General: well appearing, appears stated age. Facial contusion noted HEENT: normocephalic, atraumatic. Mucous membranes moist. Respiratory: clear to auscultation bilaterally. No rales Cardiovascular: Regular rate and rhythm, normal S1-S2 Abdomen: Soft, round, no pulsatile masses, nondistended and nontender. Extremities: No cyanosis, clubbing, . Pulses are palpable 2/2. Right upper extremity in sling and splint limited range of motion due to acute pain. Lower extremity edema Neuro: Alert and orientated x 4. PERRLA. Cranial nerves 2-12 intact without focal deficit. Skin: Warm, dry, and intact, without rash, erythema, or lesion. Psych: pleasant, cooperative, normal speech, normal affect, no hallucinations, no dysarthia Objective Data Vital Signs Vital Signs: Vital Signs - 24 hr 09/18/24 16:30 09/18/24 16:45 09/18/24 16:55 Temperature Pulse Rate 83 Respiratory Rate 14 Blood Pressure 183/87 H Pulse Oximetry 98 94 93 Oxygen Delivery 09/18/24 17:58 09/18/24 18:00 09/18/24 18:01 Temperature Pulse Rate 74 Respiratory Rate 16 Blood Pressure 215/90 H Pulse Oximetry 97 97 98 Oxygen Delivery 09/18/24 19:49 09/18/24 20:42 09/18/24 21:46 Temperature Pulse Rate 102 H 86 84 Respiratory Rate 15 15 Blood Pressure 192/86 H 192/96 H Pulse Oximetry 100 100 Oxygen Delivery 09/18/24 22:33 09/18/24 23:31 09/19/24 03:41 Temperature 97.8 F 96.8 F L Pulse Rate 74 74 87 Respiratory Rate 20 20 20 Blood Pressure 200/83 H 221/83 H Pulse Oximetry 94 94 96 Oxygen Delivery Room Air 09/19/24 08:20 09/19/24 08:21 09/19/24 08:22 Temperature Pulse Rate 89 89 Respiratory Rate Blood Pressure 193/75 H Pulse Oximetry Oxygen Delivery Room Air 09/19/24 14:00 09/19/24 14:00 09/19/24 14:02 Temperature 98.0 F 98.0 F Pulse Rate 78 78 Respiratory Rate 18 18 Blood Pressure 155/67 H 155/67 H 145/98 H Pulse Oximetry 94 94 Oxygen Delivery 09/19/24 14:05 Temperature Pulse Rate Respiratory Rate Blood Pressure 167/68 H Pulse Oximetry Oxygen Delivery Intake/Output Intake/Output: Intake & Output 09/16/24 09/18/24 09/18/24 09/19/24 23:59 00:59 23:59 23:59 Intake Total 50 590 Balance 50 590 Meds/Results Medications: Active Medications Generic Name Dose Route Start Last Admin Trade Name Freq PRN Reason Stop Dose Admin Acetaminophen 650 mg 09/18/24 18:55 Acetaminophen 325 Mg Tablet PO Q4H PRN Mild Pain (1-3) or Fever Acetaminophen 650 mg 09/18/24 21:00 09/19/24 15:47 Acetaminophen 325 Mg Tablet PO 650 mg Q6H [facility] Administration Hydrocodone Bitart/Acetaminophen 1 tab 09/18/24 18:55 Hydrocodone/Acetaminophen (*Crx) 5-325 Mg Tablet PO Q4H PRN Pain Rated 4-6 Amitriptyline HCl 25 mg 09/19/24 21:00 Amitriptyline Hcl 25 Mg Tablet PO HS [facility] Apixaban 5 mg 09/18/24 21:00 09/19/24 13:29 Apixaban 5 Mg Tablet PO Not Given Q12HR [facility] Atorvastatin Calcium 10 mg 09/19/24 09:00 09/19/24 08:23 Atorvastatin 10 Mg Tablet PO 10 mg DAILY [facility] Administration Furosemide 20 mg 09/19/24 09:00 09/19/24 08:22 Furosemide 20 Mg Tablet PO 20 mg QAM [facility] Administration Glimepiride 2 mg 09/19/24 09:00 09/19/24 08:23 Glimepiride 2 Mg Tablet PO 2 mg QAM [facility] Administration Hydralazine HCl 10 mg 09/18/24 23:13 09/19/24 03:50 Hydralazine Hcl 20 Mg/Ml Vial IV PUSH 10 mg Q8H PRN Administration Blood Pressure - High Hydromorphone HCl 0.5 mg 09/18/24 18:55 09/18/24 21:14 Hydromorphone Hcl Inj (*Crx) 1 Mg/Ml Syr IV PUSH 0.5 mg Q4H PRN Administration Pain Rated 7-10 Insulin Glargine 15 units 09/18/24 20:55 09/18/24 21:12 Insulin Glargine (*Bkc) 100 Units/Ml SUB-Q 15 units QPM [facility] Administration Levothyroxine Sodium 100 mcg 09/19/24 06:30 09/19/24 05:50 Levothyroxine Sodium 100 Mcg Tablet PO 100 mcg DAILY@0630 [facility] Administration Metoprolol Tartrate 50 mg 09/19/24 09:00 09/19/24 08:22 Metoprolol Tartrate 50 Mg Tab PO 50 mg Q12HR [facility] Administration Ondansetron HCl 4 mg 09/18/24 18:55 Ondansetron Inj 4 Mg/2 Ml Vial IV PUSH Q4H PRN Nausea Oxycodone HCl 5 mg 09/18/24 20:23 Oxycodone Hcl (*Crx) 5 Mg Tab Ir PO Q4H PRN Pain Rated 4-6 Oxycodone HCl 10 mg 09/18/24 20:23 09/19/24 15:47 Oxycodone Hcl (*Crx) 5 Mg Tab Ir PO 10 mg Q4H PRN Administration Pain Rated 7-10 Perflutren Lipid Microsphere 0 ml 09/18/24 20:23 Perflutren Lipid Microspheres 1.5 Ml Vial Diluted To 10 Ml Total Volume IV PUSH 09/21/24 20:25 ONCE PRN adequate visualization Protocol Radiology Results: ITS Impressions Head CT 09/18/24 15:33 IMPRESSION: No acute intracranial findings. Chest X-Ray 09/18/24 15:42 IMPRESSION: 1. Worsened airspace and interstitial opacities in the mid and lower lung zones, likely atelectasis. 2. Cardiomegaly. 3. Fracture deformity of proximal right humerus. Upper Extremity CT 09/18/24 15:43 IMPRESSION: Impacted fracture of the proximal metaphysis of the right humerus. Possible undisplaced fracture in the distal ulna. Wrist X-Ray 09/19/24 08:24 IMPRESSION: No change from previous examination. Shoulder X-Ray 09/19/24 08:25 IMPRESSION: 1. Comminuted two-part fracture of proximal right humerus. Labs Labs: Laboratory Results - last 24 hr 09/18/24 09/18/24 09/18/24 16:16 17:57 17:57 WBC 14.8 H RBC 3.32 L Hgb 10.2 L Hct 31.8 L MCV 95.8 MCH 30.7 MCHC 32.1 RDW 13.8 Plt Count 255 MPV 9.7 Immature Gran % (Auto) 0.3 Neut % (Auto) 92.5 H Lymph % (Auto) 4.5 L [place] % (Auto) 2.3 L Eos % (Auto) 0.1 Baso % (Auto) 0.3 Lymph # (Auto) 0.67 L [place] # (Auto) 0.3 Eos # (Auto) 0.0 Baso # (Auto) 0.0 Abs Immat Gran (auto) 0.05 H Absolute Neuts (auto) 13.6 H Absolute Nucleated RBC 0.000 Nucleated RBC % 0.0 PT 17.9 H INR 1.4 APTT 25.4 Sodium Potassium Chloride Carbon Dioxide Anion Gap BUN Creatinine Estim Creat Clear Calc Estimated GFR Glucose POC Capillary Glucose Calcium Urine Color Yellow Urine Appearance Turbid H Urine pH 5.0 Ur Specific [place] 1.015 Urine Protein 3+ H Urine Glucose (UA) Negative Urine Ketones Negative Ur Blood (Man) Trace Urine Nitrate Negative Urine Bilirubin Negative Urine Urobilinogen 0.2 Add Ur Microanalysis Reviewed Leukocyte Esterase Rfl 1+ H Urine RBC 11-20 H Urine WBC 51-100 H Ur Squamous Epith Cells Many H Urine Bacteria 2+ H Urine Casts 6-10 Blood Type A Negative Antibody Screen Positive Antibody Identification Anti-C Anti-D Antigen Identification C Antigen - NEGATIVE MEGAN, IgG Interpret MEGAN, Poly Interpret MEGAN, Complement Interp 09/18/24 09/18/24 09/18/24 17:57 17:57 19:31 WBC RBC Hgb Hct MCV MCH MCHC RDW Plt Count MPV Immature Gran % (Auto) Neut % (Auto) Lymph % (Auto) [place] % (Auto) Eos % (Auto) Baso % (Auto) Lymph # (Auto) [place] # (Auto) Eos # (Auto) Baso # (Auto) Abs Immat Gran (auto) Absolute Neuts (auto) Absolute Nucleated RBC Nucleated RBC % PT INR APTT Sodium 138 Potassium 4.2 Chloride 108 H Carbon Dioxide 18 L Anion Gap 12 BUN 38 H Creatinine 2.95 H Estim Creat Clear Calc 17 Estimated GFR 16 L Glucose 153 H POC Capillary Glucose Calcium 10.3 H Urine Color Urine Appearance Urine pH Ur Specific [place] Urine Protein Urine Glucose (UA) Urine Ketones Ur Blood (Man) Urine Nitrate Urine Bilirubin Urine Urobilinogen Add Ur Microanalysis Leukocyte Esterase Rfl Urine RBC Urine WBC Ur Squamous Epith Cells Urine Bacteria Urine Casts Blood Type Antibody Screen Antibody Identification Antigen Identification E Antigen - NEGATIVE [place] Antigen - NEGATIVE MEGAN, IgG Interpret Not Performed MEGAN, Poly Interpret Neg MEGAN, Complement Interp Not Performed 09/19/24 09/19/24 08:46 11:57 WBC RBC Hgb Hct MCV MCH MCHC RDW Plt Count MPV Immature Gran % (Auto) Neut % (Auto) Lymph % (Auto) [place] % (Auto) Eos % (Auto) Baso % (Auto) Lymph # (Auto) [place] # (Auto) Eos # (Auto) Baso # (Auto) Abs Immat Gran (auto) Absolute Neuts (auto) Absolute Nucleated RBC Nucleated RBC % PT INR APTT Sodium Potassium Chloride Carbon Dioxide Anion Gap BUN Creatinine Estim Creat Clear Calc Estimated GFR Glucose POC Capillary Glucose 97 138 H Calcium Urine Color Urine Appearance Urine pH Ur Specific [place] Urine Protein Urine Glucose (UA) Urine Ketones Ur Blood (Man) Urine Nitrate Urine Bilirubin Urine Urobilinogen Add Ur Microanalysis Leukocyte Esterase Rfl Urine RBC Urine WBC Ur Squamous Epith Cells Urine Bacteria Urine Casts Blood Type Antibody Screen Antibody Identification Antigen Identification MEGAN, IgG Interpret MEGAN, Poly Interpret MEGAN, Complement Interp
[2024-09-19 17:17] LABS: Glucose Point of Care 69 mg/dl (65-105)
[2024-09-19 17:24] LABS: Alanine Aminotransferase 19 U/L (6-35); Albumin Level 3.9 g/dL (3.5-5.1); Alkaline Phosphatase 109 U/L (38-126); Anion Gap 11 mmol/L (4-12); Aspartate Amino Transferase 20 U/L (14-36); Bilirubin,Total 0.4 mg/dL (0.2-1.3); Blood Urea Nitrogen 38 mg/dL (7-17); Calcium 10.1 mg/dL (8.4-10.2); Carbon Dioxide 20 mmol/L (22-30); Chloride 108 mmol/L (98-107); Estimated CRCL calculation 16 ml/min; Estimated Glomerular Filt Rate 14; Glucose 82 mg/dL (65-110); Magnesium 1.1 mg/dL (1.6-2.3); Potassium 3.9 mmol/L (3.4-5.0); Sodium 139 mmol/L (137-145)
[2024-09-19] MEDS: MAGNESIUM SULF 1 GM/D5W 100 ML 1 GM/100 ML BAG IVPB (17:47)
[2024-09-19] MEDS: SODIUM CHLORIDE 0.9% IV 1,000 ML 60 ML IV CONT (17:47)
[2024-09-19 18:29] LABS: Folic Acid 5.8 ng/mL (2.76->20)
[2024-09-19] MEDS: INSULIN GLARGINE (*BKC) 100 UNITS/ML 15 UNITS SUB-Q (18:30)
[2024-09-19] MEDS: AMITRIPTYLINE HCL 25 MG TABLET PO (21:01)
[2024-09-19] MEDS: APIXABAN 5 MG TABLET PO (21:02)
[2024-09-19 21:16] LABS: Glucose Point of Care 100 mg/dl (65-105)
[2024-09-20] VITALS (11 sets, daily range): BP systolic 159–226; BP diastolic 80–101; PULSE 82–100; RESP 18–20; TEMP 36.6–37.1; O2SAT 95–100
[2024-09-20] MEDS: ACETAMINOPHEN 325 MG TABLET 650 MG PO ×4 (02:43→20:06)
[2024-09-20 05:27] LABS: Basophils Percent Auto 0.3 % (0.2-1.2); Eosinophils Absolute Auto 0.2 K/mm3 (0-0.3); Eosinophils Percent Auto 1.6 % (0-4.4); Hematocrit 27.6 % (37.0-47.0); Hemoglobin 8.5 g/dL (12.0-15.0); Immature Granulocyte Absolute 0.05 K/mm3 (0.00-0.031); Immature Granulocyte Percent A 0.5 % (0-0.5); Lymphocytes Absolute Auto 1.67 K/mm3 (0.9-3.2); Mean Corpuscular HGB Conc 30.8 g/dl (32-36); Mean Corpuscular Hemoglobin 29.8 pg (26-34); Mean Corpuscular Volume 96.8 fl (80-100); Mean Platelet Volume 9.6 fl (7.4-10.4); Monocytes Absolute Auto 0.9 K/mm3 (0.1-0.6); Monocytes Percent Auto 9.1 % (2.6-8.5); Neutrophils Absolute Auto 6.5 K/mm3 (1.3-6.7); Neutrophils Percent Auto 70.5 % (45.5-73.1); Platelet Count Result 207 k/mm3 (150-375); Red Blood Count 2.85 M/mm3 (4.2-5.4); Red Cell Distribution Width 13.7 % (11.5-14.5); White Blood Count 9.3 K/mm3 (4.5-10.0)
[2024-09-20 05:35] LABS: Hemoglobin A1C 5.4 % (<5.7)
[2024-09-20 05:43] LABS: Alanine Aminotransferase 15 U/L (6-35); Albumin Level 3.4 g/dL (3.5-5.1); Alkaline Phosphatase 99 U/L (38-126); Anion Gap 11 mmol/L (4-12); Aspartate Amino Transferase 22 U/L (14-36); Bilirubin,Total 0.4 mg/dL (0.2-1.3); Blood Urea Nitrogen 38 mg/dL (7-17); Calcium 9.7 mg/dL (8.4-10.2); Carbon Dioxide 19 mmol/L (22-30); Chloride 109 mmol/L (98-107); Estimated CRCL calculation 16 ml/min; Estimated Glomerular Filt Rate 15; Glucose 81 mg/dL (65-110); Magnesium 1.3 mg/dL (1.6-2.3); Potassium 3.9 mmol/L (3.4-5.0); Sodium 139 mmol/L (137-145)
[2024-09-20] MEDS: LEVOTHYROXINE SODIUM 100 MCG TABLET PO (05:43)
[2024-09-20 05:53] LABS: Iron 34 ug/dL (37-170)
[2024-09-20 06:02] LABS: Percent Iron Saturation 14 % (20-50)
[2024-09-20 06:12] LABS: Vitamin D 25 Hydroxy 40.8 ng/mL
[2024-09-20 07:02] LABS: Free T4 Free Thyroxine Reflex 1.11 ng/dL (0.78-2.19)
--- NOTE | 2024-09-20 07:48 | P.PNOP_ITS ---
Progress Note: A&P Assessment and Plan (1) Fracture of triquetral bone of right wrist: Qualifiers: Encounter type: subsequent encounter Fracture type: closed Fracture alignment: nondisplaced Fracture healing: with routine healing Qualified Code(s): S62.114D - Nondisplaced fracture of triquetrum [cuneiform] bone, right wrist, subsequent encounter for fracture with routine healing Code(s): S62.111A - Displaced fracture of triquetrum [cuneiform] bone, right wrist, initial encounter for closed fracture Status: Acute (2) Closed fracture of proximal end of right humerus: Qualifiers: Encounter type: initial encounter Fracture morphology: unspecified fracture morphology Qualified Code(s): S42.201A - Unspecified fracture of upper end of right humerus, initial encounter for closed fracture Code(s): S42.201A - Unspecified fracture of upper end of right humerus, initial encounter for closed fracture Status: Acute Plan Saw and examined patient. Pain controlled. The fractures can be treated conservatively. Shoulder immobilizer or sling for the shoulder and wrist splint for the triquetral fracture. No questions at this time. She understands that stiffness and weakness is common after proximal humerus fracture. I will order a cryo cuff today for her shoulder. I recommend ice and elevation on the wrist. She may remove the shoulder immobilizer intermittently for exercise, comfort, and hygiene. Plan to discharge home with her daughter once medically cleared. Okay for discharge from orthopedic standpoint. Ortho instructions: * D/C home with daughter. * Follow up in office in 2 weeks with xray. Please call [facility] for appointment details. . * PT: Will start formal shoulder therapy in 2-3 weeks. * Shoulder immobilizer or sling for the shoulder and wrist splint for the triquetral fracture. She may remove the shoulder immobilizer intermittently for exercise, comfort, and hygiene. * Ice and elevation for the wrist and ice for the shoulder. * DVT prophylaxis: May resume Eliquis. Subjective Subjective Date/Time Seen: 09/20/24 07:48 Interval history: Patient resting comfortably. No pain at rest. Pain with motion. Wearing a wrist brace and shoulder immobilizer. Review of Systems Review of Systems: All systems reviewed & are unremarkable except as noted in HPI and below Exam Narrative: 74 y/o morbidly obese female. No acute d istress. Wearing immobilizer sling and removable wrist brace. Significant swelling in her fingers. Light touch sensation intact. Deltoid fires. Pain with any motion. Moderate swelling at the anterior shoulder without instability or apparent dislocation. The wrist was exquisitely tender at the dorsum near the triquetrum. The distal ulna, ulnar styloid, and radius were nontender without deformity. Wrist motion was moderately restricted with some pain dorsally. Fingers were swollen. Wiggles strength weekly. Finger motion 50% of normal. Capillary refill brisk. Radial pulse palpable. Gentle elbow motion tolerated but limited by shoulder pain. Objective Data Vital Signs Vital Signs: Vital Signs - 24 hr 09/19/24 08:20 09/19/24 08:21 09/19/24 08:22 Temperature Pulse Rate 89 89 Respiratory Rate Blood Pressure 193/75 H Pulse Oximetry Oxygen Delivery Room Air 09/19/24 14:00 09/19/24 14:00 09/19/24 14:02 Temperature 98.0 F 98.0 F Pulse Rate 78 78 Respiratory Rate 18 18 Blood Pressure 155/67 H 155/67 H 145/98 H Pulse Oximetry 94 94 Oxygen Delivery 09/19/24 14:05 09/19/24 20:00 09/19/24 20:00 Temperature 98.6 F Pulse Rate 70 70 Respiratory Rate 20 20 Blood Pressure 167/68 H 166/74 H Pulse Oximetry 96 96 Oxygen Delivery Room Air 09/19/24 20:24 09/19/24 20:26 09/19/24 20:29 Temperature 98.6 F 98.6 F 98.6 F Pulse Rate 79 79 70 Respiratory Rate 20 20 20 Blood Pressure 174/77 H 184/67 H 166/74 H Pulse Oximetry 96 94 96 Oxygen Delivery 09/19/24 21:01 09/20/24 04:13 Temperature 97.9 F Pulse Rate 70 83 Respiratory Rate 20 Blood Pressure 172/80 H Pulse Oximetry 99 Oxygen Delivery Intake/Output Intake/Output: Intake & Output 09/18/24 09/18/24 09/19/24 09/20/24 00:59 23:59 23:59 23:59 Intake Total 50 1430 290 Balance 50 1430 290 Meds/Results Medications: Active Medications Generic Name Dose Route Start Last Admin Trade Name Freq PRN Reason Stop Dose Admin Acetaminophen 650 mg 09/18/24 18:55 Acetaminophen 325 Mg Tablet PO Q4H PRN Mild Pain (1-3) or Fever Acetaminophen 650 mg 09/18/24 21:00 09/20/24 02:43 Acetaminophen 325 Mg Tablet PO 650 mg Q6H [facility]OM[facility]ON Administration Hydrocodone Bitart/Acetaminophen 1 tab 09/18/24 18:55 Hydrocodone/Acetaminophen (*Crx) 5-325 Mg Tablet PO Q4H PRN Pain Rated 4-6 Amitriptyline HCl 25 mg 09/19/24 21:00 09/19/24 21:01 Amitriptyline Hcl 25 Mg Tablet PO 25 mg HS TH[facility]ON Administration Apixaban 5 mg 09/18/24 21:00 09/19/24 21:02 Apixaban 5 Mg Tablet PO 5 mg Q12HR [facility] Administration Atorvastatin Calcium 10 mg 09/19/24 09:00 09/19/24 08:23 Atorvastatin 10 Mg Tablet PO 10 mg DAILY [facility]ON Administration Dextrose 12.5 gm 09/19/24 16:31 Dextrose 50% 25 Gm/50 Ml Syringe IV PUSH PRN PRN Hypoglycemia Protocol Furosemide 20 mg 09/19/24 09:00 09/19/24 08:22 Furosemide 20 Mg Tablet PO 20 mg QAM TH[facility]ON Administration Glimepiride 2 mg 09/19/24 09:00 09/19/24 08:23 Glimepiride 2 Mg Tablet PO 2 mg QAM TH[facility] Administration Glucagon 1 mg 09/19/24 16:31 Glucagon For Inj 1 Mg Vial IM PRN PRN Hypoglycemia Protocol Glucose 15 gm 09/19/24 16:31 Glucose Oral Gel 15 Gm Of Glucse In 37.5 Gm Tube PO PRN PRN Hypoglycemia Protocol Hydralazine HCl 10 mg 09/18/24 23:13 09/19/24 03:50 Hydralazine Hcl 20 Mg/Ml Vial IV PUSH 10 mg Q8H PRN Administration Blood Pressure - High Hydromorphone HCl 0.5 mg 09/18/24 18:55 09/18/24 21:14 Hydromorphone Hcl Inj (*Crx) 1 Mg/Ml Syr IV PUSH 0.5 mg Q4H PRN Administration Pain Rated 7-10 Ceftriaxone Sodium 1 gm in 50 mls @ 100 mls/hr 09/19/24 17:00 09/19/24 17:39 Rocephin 1 Gm/Ns 50 Ml IVPB Infused Q24H TH[facility]ON Infusion Dextrose 1,000 mls @ 100 mls/hr 09/19/24 16:31 Dextrose 5% 1,000 Ml IVPB PRN PRN Hypoglycemia Protocol Sodium Chloride 1,000 mls @ 60 mls/hr 09/19/24 17:40 09/19/24 17:47 Normal Saline Iv IV CONT 60 mls/hr .[id number] THOM[facility]ON Administration Insulin Aspart 2 - 5 units 09/19/24 17:00 09/19/24 17:44 Insulin Aspart (*Bkc) 100 Units/Ml SUB-Q Not Given TIDWM [facility] Protocol Insulin Aspart 1 - 2 units 09/19/24 21:00 09/19/24 21:42 Insulin Aspart (*Bkc) 100 Units/Ml SUB-Q Not Given HS [facility] Protocol Insulin Glargine 15 units 09/18/24 20:55 09/19/24 18:30 Insulin Glargine (*Bkc) 100 Units/Ml SUB-Q 15 units QPM TH[facility]ON Administration Levothyroxine Sodium 100 mcg 09/19/24 06:30 09/20/24 05:43 Levothyroxine Sodium 100 Mcg Tablet PO 100 mcg DAILY@0630 [facility] Administration Metoprolol Tartrate 50 mg 09/19/24 09:00 09/19/24 21:01 Metoprolol Tartrate 50 Mg Tab PO 50 mg Q12HR [facility] Administration Ondansetron HCl 4 mg 09/18/24 18:55 Ondansetron Inj 4 Mg/2 Ml Vial IV PUSH Q4H PRN Nausea Oxycodone HCl 5 mg 09/18/24 20:23 Oxycodone Hcl (*Crx) 5 Mg Tab Ir PO Q4H PRN Pain Rated 4-6 Oxycodone HCl 10 mg 09/18/24 20:23 09/19/24 15:47 Oxycodone Hcl (*Crx) 5 Mg Tab Ir PO 10 mg Q4H PRN Administration Pain Rated 7-10 Perflutren Lipid Microsphere 0 ml 09/18/24 20:23 Perflutren Lipid Microspheres 1.5 Ml Vial Diluted To 10 Ml Total Volume IV PUSH 09/21/24 20:25 ONCE PRN adequate visualization Protocol Radiology Results: ITS Impressions Head CT 09/18/24 15:33 IMPRESSION: No acute intracranial findings. Chest X-Ray 09/18/24 15:42 IMPRESSION: 1. Worsened airspace and interstitial opacities in the mid and lower lung zones, likely atelectasis. 2. Cardiomegaly. 3. Fracture deformity of proximal right humerus. Upper Extremity CT 09/18/24 15:43 IMPRESSION: Impacted fracture of the proximal metaphysis of the right humerus. Possible undisplaced fracture in the distal ulna. Wrist X-Ray 09/19/24 08:24 IMPRESSION: No change from previous examination. Shoulder X-Ray 09/19/24 08:25 IMPRESSION: 1. Comminuted two-part fracture of proximal right humerus. Labs Labs: Laboratory Results - last 24 hr 09/19/24 09/19/24 09/19/24 08:46 11:57 16:57 WBC RBC Hgb Hct MCV MCH MCHC RDW Plt Count MPV Immature Gran % (Auto) Neut % (Auto) Lymph % (Auto) [place] % (Auto) Eos % (Auto) Baso % (Auto) Lymph # (Auto) [place] # (Auto) Eos # (Auto) Baso # (Auto) Abs Immat Gran (auto) Absolute Neuts (auto) Absolute Nucleated RBC Nucleated RBC % Sodium 139 Potassium 3.9 Chloride 108 H Carbon Dioxide 20 L Anion Gap 11 BUN 38 H Creatinine 3.16 H Estim Creat Clear Calc 16 Estimated GFR 14 L Glucose 82 POC Capillary Glucose 97 138 H Hemoglobin A1c Calcium 10.1 Magnesium 1.1 L Iron TIBC % Saturation Ferritin Total Bilirubin 0.4 AST 20 ALT 19 Alkaline Phosphatase 109 Total Protein 7.0 Albumin 3.9 Vitamin B12 265.0 Vitamin D 25-Hydroxy Folate 5.8 TSH (Reflex) Free T4 09/19/24 09/19/24 09/20/24 17:10 20:18 05:05 WBC 9.3 RBC 2.85 L Hgb 8.5 L Hct 27.6 L MCV 96.8 MCH 29.8 MCHC 30.8 L RDW 13.7 Plt Count 207 MPV 9.6 Immature Gran % (Auto) 0.5 Neut % (Auto) 70.5 Lymph % (Auto) 18.0 L [place] % (Auto) 9.1 H Eos % (Auto) 1.6 Baso % (Auto) 0.3 Lymph # (Auto) 1.67 [place] # (Auto) 0.9 H Eos # (Auto) 0.2 Baso # (Auto) 0.0 Abs Immat Gran (auto) 0.05 H Absolute Neuts (auto) 6.5 Absolute Nucleated RBC 0.000 Nucleated RBC % 0.0 Sodium 139 Potassium 3.9 Chloride 109 H Carbon Dioxide 19 L Anion Gap 11 BUN 38 H Creatinine 3.09 H Estim Creat Clear Calc 16 Estimated GFR 15 L Glucose 81 POC Capillary Glucose 69 100 Hemoglobin A1c 5.4 Calcium 9.7 Magnesium 1.3 L Iron 34 L TIBC 246 L % Saturation 14 L Ferritin 67.60 Total Bilirubin 0.4 AST 22 ALT 15 Alkaline Phosphatase 99 Total Protein 6.0 L Albumin 3.4 L Vitamin B12 Vitamin D 25-Hydroxy 40.8 Folate TSH (Reflex) 4.020 Free T4 1.11
[2024-09-20] MEDS: APIXABAN 5 MG TABLET PO ×2 (08:24→20:06)
[2024-09-20] MEDS: GLIMEPIRIDE 2 MG TABLET PO (08:24)
[2024-09-20] MEDS: FUROSEMIDE 20 MG TABLET PO (08:24)
[2024-09-20] MEDS: ATORVASTATIN 10 MG TABLET PO (08:24)
[2024-09-20] MEDS: METOPROLOL TARTRATE 50 MG TAB PO ×2 (08:24→20:06)
[2024-09-20 08:26] LABS: Glucose Point of Care 91 mg/dl (65-105)
[2024-09-20 08:55] LABS: Total Triiodothyronine (T3) 0.93 NG/ML (0.97-1.69)
--- NOTE | 2024-09-20 10:23 | PM.IMPN ---
Progress Note: A&P Assessment and Plan (1) Fall: Code(s): W19.XXXA - Unspecified fall, initial encounter Status: Acute (2) UTI (urinary tract infection): Code(s): N39.0 - Urinary tract infection, site not specified Status: Acute (3) Type 2 diabetes mellitus with stage 4 chronic kidney disease: Qualifiers: Diabetes mellitus staffing clerk insulin use: with senior living use Qualified Code(s): E11.22 - Type 2 diabetes mellitus with diabetic chronic kidney disease; N18.4 - Chronic kidney disease, stage 4 (severe); Z79.4 - [facility] (current) use of insulin Code(s): E11.22 - Type 2 diabetes mellitus with diabetic chronic kidney disease; N18.4 - Chronic kidney disease, stage 4 (severe) Status: Acute (4) Hypothyroidism: Code(s): E03.9 - Hypothyroidism, unspecified Status: Acute (5) Distal end of ulna fracture, closed: Code(s): S52.609A - Unspecified fracture of lower end of unspecified ulna, initial encounter for closed fracture Status: Ruled-out (6) Closed fracture of proximal end of right humerus: Qualifiers: Encounter type: initial encounter Fracture morphology: unspecified fracture morphology Qualified Code(s): S42.201A - Unspecified fracture of upper end of right humerus, initial encounter for closed fracture Code(s): S42.201A - Unspecified fracture of upper end of right humerus, initial encounter for closed fracture Status: Acute (7) Edema: Code(s): R60.9 - Edema, unspecified Status: Acute Plan This is a 74-year-old female presents to the ED after a fall. Over the past few months. Recent days ago on 09/16/2024 with fall forward onto her head and sustained right wrist fracture which was splinted in the ED and was discharged to follow-up with orthopedics as an outpatient basis. She had another mechanical fall and stroke her right shoulder a sliding to the ground. No syncope or loss of consciousness. No headache nausea vomiting chest pain shortness of breath fever chills. She also hit her head. She had a total of 3 falls in the last couple months Her vitals were stable except for elevated blood pressure which is chronic problem. Head CT was negative for any acute intracranial findings. Chest x-ray showed worsened airspace and interstitial opacities in the mid and lower lung zones likely atelectasis. Cardiomegaly and fracture deformity of the proximal right humerus. Upper extremity CT showed impacted fracture of the proximal metaphysis of the right humerus possible undisplaced fracture in the distal ulna. Laboratory workup showed leukocytosis of 14.8 hemoglobin 10.2 platelet count 255. UA was turbid with 1+ leukocyte esterase and 2+ bacteria. Urine WBC 50 1-100 urine RBC 11-20. Creatinine of 2.9 set of 18 calcium of 10.3. Recurrent falls mechanical some balance issues PT OT to see telemetry monitoring. Orthostatic vital signs. Echocardiogram with EF 65-70% moderately increased left ventricular wall thickness grade 1 diastolic dysfunction. No significant valvular abnormality. Proximal humerus fracture distal ulnar fracture orthopedic to see Recurrent falls check B12 folate vitamin-D TSH. Orthostatics negative. PT OT to see. Recurrent falls. If ongoing may need to hold apixaban. No hypoglycemia reported or evidenced UTI ceftriaxone follow urine culture Type 2 diabetes on insulin LUZ MARIA Hypertension CKD stage 4 baseline creatinine in 2s. Continue to monitor Hypothyroidism History of TIA DVT prophylaxis on apixaban Code status full code Subjective Date/time seen: 09/20/24 10:23 Interval history: Patient was evaluated at the bedside. Patient reports he has a history of AFib, diabetes mellitus, hypertension, CKD and he follows with Dr. Prescott. Patient had multiple falls and most of them due to mechanical. Discussed with the PT/OT recommends SNF. Review of Systems Review of Systems: 12 systems were reviewed and are negative except for as per HPI. All systems reviewed & are unremarkable except as noted in HPI and below Exam Narrative: General: well appearing, appears stated age. Facial contusion noted HEENT: normocephalic, atraumatic. Mucous membranes moist. Respiratory: clear to auscultation bilaterally. No rales Cardiovascular: Regular rate and rhythm, normal S1-S2 Abdomen: Soft, round, no pulsatile masses, nondistended and nontender. Extremities: No cyanosis, clubbing, . Pulses are palpable 2/2. Right upper extremity in sling and splint limited range of motion due to acute pain. Lower extremity edema Neuro: Alert and orientated x 4. PERRLA. Cranial nerves 2-12 intact without focal deficit. Skin: Warm, dry, and intact, without rash, erythema, or lesion. Psych: pleasant, cooperative, normal speech, normal affect, no hallucinations, no dysarthia Objective Data Vital Signs Vital Signs: Vital Signs - 24 hr 09/19/24 14:00 09/19/24 14:00 09/19/24 14:02 Temperature 98.0 F 98.0 F Pulse Rate 78 78 Respiratory Rate 18 18 Blood Pressure 155/67 H 155/67 H 145/98 H Pulse Oximetry 94 94 Oxygen Delivery 09/19/24 14:05 09/19/24 20:00 09/19/24 20:00 Temperature 98.6 F Pulse Rate 70 70 Respiratory Rate 20 20 Blood Pressure 167/68 H 166/74 H Pulse Oximetry 96 96 Oxygen Delivery Room Air 09/19/24 20:24 09/19/24 20:26 09/19/24 20:29 Temperature 98.6 F 98.6 F 98.6 F Pulse Rate 79 79 70 Respiratory Rate 20 20 20 Blood Pressure 174/77 H 184/67 H 166/74 H Pulse Oximetry 96 94 96 Oxygen Delivery 09/19/24 21:01 09/20/24 04:13 09/20/24 08:24 Temperature 97.9 F Pulse Rate 70 83 83 Respiratory Rate 20 Blood Pressure 172/80 H Pulse Oximetry 99 Oxygen Delivery Intake/Output Intake/Output: Intake & Output 09/18/24 09/18/24 09/19/24 09/20/24 00:59 23:59 23:59 23:59 Intake Total 50 1430 290 Balance 50 1430 290 Meds/Results Medications: Active Medications Generic Name Dose Route Start Last Admin Trade Name Freq PRN Reason Stop Dose Admin Acetaminophen 650 mg 09/18/24 18:55 Acetaminophen 325 Mg Tablet PO Q4H PRN Mild Pain (1-3) or Fever Acetaminophen 650 mg 09/18/24 21:00 09/20/24 08:25 Acetaminophen 325 Mg Tablet PO 650 mg Q6H [facility] Administration Hydrocodone Bitart/Acetaminophen 1 tab 09/18/24 18:55 Hydrocodone/Acetaminophen (*Crx) 5-325 Mg Tablet PO Q4H PRN Pain Rated 4-6 Amitriptyline HCl 25 mg 09/19/24 21:00 09/19/24 21:01 Amitriptyline Hcl 25 Mg Tablet PO 25 mg HS [facility] Administration Apixaban 5 mg 09/18/24 21:00 09/20/24 08:24 Apixaban 5 Mg Tablet PO 5 mg Q12HR [facility] Administration Atorvastatin Calcium 10 mg 09/19/24 09:00 09/20/24 08:24 Atorvastatin 10 Mg Tablet PO 10 mg DAILY [facility] Administration Dextrose 12.5 gm 09/19/24 16:31 Dextrose 50% 25 Gm/50 Ml Syringe IV PUSH PRN PRN Hypoglycemia Protocol Furosemide 20 mg 09/19/24 09:00 09/20/24 08:24 Furosemide 20 Mg Tablet PO 20 mg QAM [facility] Administration Glimepiride 2 mg 09/19/24 09:00 09/20/24 08:24 Glimepiride 2 Mg Tablet PO 2 mg QAM [facility] Administration Glucagon 1 mg 09/19/24 16:31 Glucagon For Inj 1 Mg Vial IM PRN PRN Hypoglycemia Protocol Glucose 15 gm 09/19/24 16:31 Glucose Oral Gel 15 Gm Of Glucse In 37.5 Gm Tube PO PRN PRN Hypoglycemia Protocol Hydralazine HCl 10 mg 09/18/24 23:13 09/19/24 03:50 Hydralazine Hcl 20 Mg/Ml Vial IV PUSH 10 mg Q8H PRN Administration Blood Pressure - High Hydromorphone HCl 0.5 mg 09/18/24 18:55 09/18/24 21:14 Hydromorphone Hcl Inj (*Crx) 1 Mg/Ml Syr IV PUSH 0.5 mg Q4H PRN Administration Pain Rated 7-10 Ceftriaxone Sodium 1 gm in 50 mls @ 100 mls/hr 09/19/24 17:00 09/19/24 17:39 Rocephin 1 Gm/Ns 50 Ml IVPB Infused Q24H [facility] Infusion Dextrose 1,000 mls @ 100 mls/hr 09/19/24 16:31 Dextrose 5% 1,000 Ml IVPB PRN PRN Hypoglycemia Protocol Sodium Chloride 1,000 mls @ 60 mls/hr 09/19/24 17:40 09/19/24 17:47 Normal Saline Iv IV CONT 60 mls/hr .[id number] [facility] Administration Insulin Aspart 2 - 5 units 09/19/24 17:00 09/20/24 08:29 Insulin Aspart (*Bkc) 100 Units/Ml SUB-Q Not Given TIDWM [facility] Protocol Insulin Aspart 1 - 2 units 09/19/24 21:00 09/19/24 21:42 Insulin Aspart (*Bkc) 100 Units/Ml SUB-Q Not Given HS [facility] Protocol Insulin Glargine 15 units 09/18/24 20:55 09/19/24 18:30 Insulin Glargine (*Bkc) 100 Units/Ml SUB-Q 15 units QPM [facility] Administration Levothyroxine Sodium 100 mcg 09/19/24 06:30 09/20/24 05:43 Levothyroxine Sodium 100 Mcg Tablet PO 100 mcg DAILY@0630 [facility] Administration Metoprolol Tartrate 50 mg 09/19/24 09:00 09/20/24 08:24 Metoprolol Tartrate 50 Mg Tab PO 50 mg Q12HR [facility] Administration Ondansetron HCl 4 mg 09/18/24 18:55 Ondansetron Inj 4 Mg/2 Ml Vial IV PUSH Q4H PRN Nausea Oxycodone HCl 5 mg 09/18/24 20:23 Oxycodone Hcl (*Crx) 5 Mg Tab Ir PO Q4H PRN Pain Rated 4-6 Oxycodone HCl 10 mg 09/18/24 20:23 09/19/24 15:47 Oxycodone Hcl (*Crx) 5 Mg Tab Ir PO 10 mg Q4H PRN Administration Pain Rated 7-10 Perflutren Lipid Microsphere 0 ml 09/18/24 20:23 Perflutren Lipid Microspheres 1.5 Ml Vial Diluted To 10 Ml Total Volume IV PUSH 09/21/24 20:25 ONCE PRN adequate visualization Protocol Radiology Results: ITS Impressions Head CT 09/18/24 15:33 IMPRESSION: No acute intracranial findings. Chest X-Ray 09/18/24 15:42 IMPRESSION: 1. Worsened airspace and interstitial opacities in the mid and lower lung zones, likely atelectasis. 2. Cardiomegaly. 3. Fracture deformity of proximal right humerus. Upper Extremity CT 09/18/24 15:43 IMPRESSION: Impacted fracture of the proximal metaphysis of the right humerus. Possible undisplaced fracture in the distal ulna. Wrist X-Ray 09/19/24 08:24 IMPRESSION: No change from previous examination. Shoulder X-Ray 09/19/24 08:25 IMPRESSION: 1. Comminuted two-part fracture of proximal right humerus. Labs Labs: Laboratory Results - last 24 hr 09/19/24 09/19/24 09/19/24 11:57 16:57 17:10 WBC RBC Hgb Hct MCV MCH MCHC RDW Plt Count MPV Immature Gran % (Auto) Neut % (Auto) Lymph % (Auto) [place] % (Auto) Eos % (Auto) Baso % (Auto) Lymph # (Auto) [place] # (Auto) Eos # (Auto) Baso # (Auto) Abs Immat Gran (auto) Absolute Neuts (auto) Absolute Nucleated RBC Nucleated RBC % Sodium 139 Potassium 3.9 Chloride 108 H Carbon Dioxide 20 L Anion Gap 11 BUN 38 H Creatinine 3.16 H Estim Creat Clear Calc 16 Estimated GFR 14 L Glucose 82 POC Capillary Glucose 138 H 69 Hemoglobin A1c Calcium 10.1 Magnesium 1.1 L Iron TIBC % Saturation Ferritin Total Bilirubin 0.4 AST 20 ALT 19 Alkaline Phosphatase 109 Total Protein 7.0 Albumin 3.9 Vitamin B12 265.0 Vitamin D 25-Hydroxy Folate 5.8 TSH (Reflex) Free T4 Total T3 09/19/24 09/20/24 09/20/24 20:18 05:05 08:10 WBC 9.3 RBC 2.85 L Hgb 8.5 L Hct 27.6 L MCV 96.8 MCH 29.8 MCHC 30.8 L RDW 13.7 Plt Count 207 MPV 9.6 Immature Gran % (Auto) 0.5 Neut % (Auto) 70.5 Lymph % (Auto) 18.0 L [place] % (Auto) 9.1 H Eos % (Auto) 1.6 Baso % (Auto) 0.3 Lymph # (Auto) 1.67 [place] # (Auto) 0.9 H Eos # (Auto) 0.2 Baso # (Auto) 0.0 Abs Immat Gran (auto) 0.05 H Absolute Neuts (auto) 6.5 Absolute Nucleated RBC 0.000 Nucleated RBC % 0.0 Sodium 139 Potassium 3.9 Chloride 109 H Carbon Dioxide 19 L Anion Gap 11 BUN 38 H Creatinine 3.09 H Estim Creat Clear Calc 16 Estimated GFR 15 L Glucose 81 POC Capillary Glucose 100 91 Hemoglobin A1c 5.4 Calcium 9.7 Magnesium 1.3 L Iron 34 L TIBC 246 L % Saturation 14 L Ferritin 67.60 Total Bilirubin 0.4 AST 22 ALT 15 Alkaline Phosphatase 99 Total Protein 6.0 L Albumin 3.4 L Vitamin B12 Vitamin D 25-Hydroxy 40.8 Folate TSH (Reflex) 4.020 Free T4 1.11 Total T3 0.93 L Quality VTE Prophylaxis VTE prophylaxis: mechanical ordered and pharmacologic ordered Hospitalist MIPS Advance Care Plan I have confirmed that the patient's Advanced Care Plan is present, code status is documented, or surrogate decision maker is listed in patient medical record.: Yes Medication Reconciliation I have utilized all available resources to obtain, update and review the patients current medications (includes all prescriptions, OTC, herbals, cannabis, and nutritional supplements).: Yes
[2024-09-20] MEDS: oxyCODONE HCL (*CRX) 5 MG TAB IR 10 MG PO (11:43)
[2024-09-20] MEDS: SODIUM CHLORIDE 0.9% IV 1,000 ML 60 ML IV CONT (11:43)
[2024-09-20 11:54] LABS: Glucose Point of Care 100 mg/dl (65-105)
[2024-09-20 17:05] LABS: Glucose Point of Care 83 mg/dl (65-105)
[2024-09-20] MEDS: INSULIN GLARGINE (*BKC) 100 UNITS/ML 15 UNITS SUB-Q (17:48)
[2024-09-20] MEDS: hydrALAZINE HCL 20 MG/ML VIAL 10 MG IV PUSH (18:08)
[2024-09-20] MEDS: AMITRIPTYLINE HCL 25 MG TABLET PO (20:07)
[2024-09-20 22:01] LABS: Glucose Point of Care 75 mg/dl (65-105)
[2024-09-21 05:08] LABS: Hematocrit 26.1 % (37.0-47.0); Hemoglobin 8.1 g/dL (12.0-15.0); Mean Corpuscular Volume 96.7 fl (80-100); Mean Platelet Volume 9.4 fl (7.4-10.4); Platelet Count Result 200 k/mm3 (150-375); Red Cell Distribution Width 13.8 % (11.5-14.5); White Blood Count 9.4 K/mm3 (4.5-10.0)
[2024-09-21 05:12] VITALS: BP 172/72; PULSE 69; RESP 20; TEMP 36.6; O2SAT 99
--- NOTE | 2024-09-21 08:13 | P.PNIM_ITS ---
Progress Note: A&P Assessment and Plan (1) Fall: Code(s): W19.XXXA - Unspecified fall, initial encounter Status: Acute (2) UTI (urinary tract infection): Code(s): N39.0 - Urinary tract infection, site not specified Status: Acute (3) Type 2 diabetes mellitus with stage 4 chronic kidney disease: Qualifiers: Diabetes mellitus parts counterman insulin use: with group home use Qualified Code(s): E11.22 - Type 2 diabetes mellitus with diabetic chronic kidney disease; N18.4 - Chronic kidney disease, stage 4 (severe); Z79.4 - MCFP (current) use of insulin Code(s): E11.22 - Type 2 diabetes mellitus with diabetic chronic kidney disease; N18.4 - Chronic kidney disease, stage 4 (severe) Status: Acute (4) Hypothyroidism: Code(s): E03.9 - Hypothyroidism, unspecified Status: Acute (5) Distal end of ulna fracture, closed: Code(s): S52.609A - Unspecified fracture of lower end of unspecified ulna, initial encounter for closed fracture Status: Ruled-out (6) Closed fracture of proximal end of right humerus: Qualifiers: Encounter type: initial encounter Fracture morphology: unspecified fracture morphology Qualified Code(s): S42.201A - Unspecified fracture of upper end of right humerus, initial encounter for closed fracture Code(s): S42.201A - Unspecified fracture of upper end of right humerus, initial encounter for closed fracture Status: Acute (7) Edema: Code(s): R60.9 - Edema, unspecified Status: Acute Plan This is a 74-year-old female presents to the ED after a fall. Over the past few months. Recent days ago on 09/16/2024 with fall forward onto her head and sustained right wrist fracture which was splinted in the ED and was discharged to follow-up with orthopedics as an outpatient basis. She had another mechanical fall and stroke her right shoulder a sliding to the ground. No syncope or loss of consciousness. No headache nausea vomiting chest pain s hortness of breath fever chills. She also hit her head. She had a total of 3 falls in the last couple months #Fall #Fracture of triquetral bone of right wrist #Closed fracture of proximal end of right humerus -Conservative management -Ortho order a cryo cuff for her shoulder -recommend ice and elevation on the wrist -remove the shoulder immobilizer intermittently for exercise, comfort, and hygiene -PT/OT recommend SNF #HTN -started Amlodipine 10 mg PO QD -Titrate as needed as OP -Possible pain component #A.Fib -Continue Eliquis 5 mg PO BID -Continue Metoprolol 50 mg PO BID #Hypothyroidism -Continue Levo 100mcg #DM SSI Lantus 15 U HS Glimepiride 2mg Po QD #CHF Continue Lasix #CKD -DC fluids -Follows with as OP #Anemia -Order Anemia -Order Ferrous sulphate Subjective Date/time seen: 09/21/24 08:13 Review of Systems Review of Systems: 12 systems were reviewed and are negativ e except for as per HPI. All systems reviewed & are unremarkable except as noted in HPI and below Exam Narrative: General: well appearing, appears stated age. Facial contusion noted HEENT: normocephalic, atraumatic. Mucous membranes moist. Respiratory: clear to auscultation bilaterally. No rales Cardiovascular: Regular rate and rhythm, normal S1-S2 Abdomen: Soft, round, no pulsatile masses, nondistended and nontender. Extremities: No cyanosis, clubbing, . Pulses are palpable 2/2. Right upper extremity in sling and splint limited range of motion due to acute pain. Lower extremity edema Neuro: Alert and orientated x 4. PERRLA. Cranial nerves 2-12 intact without focal deficit. Skin: Warm, dry, and intact, without rash, erythema, or lesion. Psych: pleasant, cooperative, normal speech, normal affect, no hallucinations, no dysarthia Objective Data Vital Signs Vital Signs: Vital Signs - 24 hr 09/20/24 08:24 09/20/24 08:25 09/20/24 14:00 Temperature 97.8 F Pulse Rate 83 85 Respiratory Rate 18 Blood Pressure 226/89 H Pulse Oximetry 95 Oxygen Delivery Room Air Fraction of Inspired Oxygen 09/20/24 18:08 09/20/24 19:40 09/20/24 20:00 Temperature Pulse Rate Respiratory Rate Blood Pressure 171/101 H 184/84 H Pulse Oximetry 95 Oxygen Delivery Room Air Fraction of Inspired Oxygen 21 09/20/24 20:00 09/20/24 20:56 09/20/24 20:57 Temperature Pulse Rate 100 Respiratory Rate 20 Blood Pressure 159/83 H 160/93 H Pulse Oximetry 96 Oxygen Delivery Room Air Fraction of Inspired Oxygen 21 09/20/24 20:58 09/20/24 20:59 09/21/24 05:12 Temperature 98.7 F 98.7 F 97.8 F Pulse Rate 100 100 69 Respiratory Rate 20 20 20 Blood Pressure 160/93 H 160/93 H 172/72 H Pulse Oximetry 100 96 99 Oxygen Delivery Fraction of Inspired Oxygen Intake/Output Intake/Output: Intake & Output 09/18/24 09/19/24 09/20/24 09/21/24 23:59 23:59 23:59 23:59 Intake Total 50 1430 2060 400 Output Total 1000 Balance 50 1430 2060 -600 Meds/Results Medications: Active Medications Generic Name Dose Route Start Last Admin Trade Name Freq PRN Reason Stop Dose Admin Acetaminophen 650 mg 09/18/24 18:55 Acetaminophen 325 Mg Tablet PO Q4H PRN Mild Pain (1-3) or Fever Acetaminophen 650 mg 09/18/24 21:00 09/20/24 20:06 Acetaminophen 325 Mg Tablet PO 650 mg Q6H THOMPSON Administration Hydrocodone Bitart/Acetaminophen 1 tab 09/18/24 18:55 Hydrocodone/Acetaminophen (*Crx) 5-325 Mg Tablet PO Q4H PRN Pain Rated 4-6 Amitriptyline HCl 25 mg 09/19/24 21:00 09/20/24 20:07 Amitriptyline Hcl 25 Mg Tablet PO 25 mg HS THOMPSON Administration Apixaban 5 mg 09/18/24 21:00 09/20/24 20:06 Apixaban 5 Mg Tablet PO 5 mg Q12HR THOMPSON Administration Atorvastatin Calcium 10 mg 09/19/24 09:00 09/20/24 08:24 Atorvastatin 10 Mg Tablet PO 10 mg DAILY THOMPSON Administration Dextrose 12.5 gm 09/19/24 16:31 Dextrose 50% 25 Gm/50 Ml Syringe IV PUSH PRN PRN Hypoglycemia Protocol Furosemide 20 mg 09/19/24 09:00 09/20/24 08:24 Furosemide 20 Mg Tablet PO 20 mg QAM THOMPSON Administration Glimepiride 2 mg 09/19/24 09:00 09/20/24 08:24 Glimepiride 2 Mg Tablet PO 2 mg QAM THOMPSON Administration Glucagon 1 mg 09/19/24 16:31 Glucagon For Inj 1 Mg Vial IM PRN PRN Hypoglycemia Protocol Glucose 15 gm 09/19/24 16:31 Glucose Oral Gel 15 Gm Of Glucse In 37.5 Gm Tube PO PRN PRN Hypoglycemia Protocol Hydralazine HCl 10 mg 09/18/24 23:13 09/20/24 18:08 Hydralazine Hcl 20 Mg/Ml Vial IV PUSH 10 mg Q8H PRN Administration Blood Pressure - High Hydromorphone HCl 0.5 mg 09/18/24 18:55 09/18/24 21:14 Hydromorphone Hcl Inj (*Crx) 1 Mg/Ml Syr IV PUSH 0.5 mg Q4H PRN Administration Pain Rated 7-10 Ceftriaxone Sodium 1 gm in 50 mls @ 100 mls/hr 09/19/24 17:00 09/20/24 17:22 Rocephin 1 Gm/Ns 50 Ml IVPB Infused Q24H THOMPSON Infusion Dextrose 1,000 mls @ 100 mls/hr 09/19/24 16:31 Dextrose 5% 1,000 Ml IVPB PRN PRN Hypoglycemia Protocol Sodium Chloride 1,000 mls @ 60 mls/hr 09/19/24 17:40 09/20/24 11:43 Normal Saline Iv IV CONT 60 mls/hr .[id number] THOMPSON Administration Insulin Aspart 2 - 5 units 09/19/24 17:00 09/20/24 17:48 Insulin Aspart (*Bkc) 100 Units/Ml SUB-Q Not Given TIDWM [facility] Protocol Insulin Aspart 1 - 2 units 09/19/24 21:00 09/20/24 20:06 Insulin Aspart (*Bkc) 100 Units/Ml SUB-Q Not Given HS [facility] Protocol Insulin Glargine 15 units 09/18/24 20:55 09/20/24 17:48 Insulin Glargine (*Bkc) 100 Units/Ml SUB-Q 15 units QPM THOMPSON Administration Levothyroxine Sodium 100 mcg 09/19/24 06:30 09/20/24 05:43 Levothyroxine Sodium 100 Mcg Tablet PO 100 mcg DAILY@0630 TH[facility]ON Administration Metoprolol Tartrate 50 mg 09/19/24 09:00 09/20/24 20:06 Metoprolol Tartrate 50 Mg Tab PO 50 mg Q12HR THOM[facility]ON Administration Ondansetron HCl 4 mg 09/18/24 18:55 Ondansetron Inj 4 Mg/2 Ml Vial IV PUSH Q4H PRN Nausea Oxycodone HCl 5 mg 09/18/24 20:23 Oxycodone Hcl (*Crx) 5 Mg Tab Ir PO Q4H PRN Pain Rated 4-6 Oxycodone HCl 10 mg 09/18/24 20:23 09/20/24 11:43 Oxycodone Hcl (*Crx) 5 Mg Tab Ir PO 10 mg Q4H PRN Administration Pain Rated 7-10 Perflutren Lipid Microsphere 0 ml 09/18/24 20:23 Perflutren Lipid Microspheres 1.5 Ml Vial Diluted To 10 Ml Total Volume IV PUSH 09/21/24 20:25 ONCE PRN adequate visualization Protocol Radiology Results: ITS Impressions Head CT 09/18/24 15:33 IMPRESSION: No acute intracranial findings. Chest X-Ray 09/18/24 15:42 IMPRESSION: 1. Worsened airspace and interstitial opacities in the mid and lower lung zones, likely atelectasis. 2. Cardiomegaly. 3. Fracture deformity of proximal right humerus. Upper Extremity CT 09/18/24 15:43 IMPRESSION: Impacted fracture of the proximal metaphysis of the right humerus. Possible undisplaced fracture in the distal ulna. Wrist X-Ray 09/19/24 08:24 IMPRESSION: No change from previous examination. Shoulder X-Ray 09/19/24 08:25 IMPRESSION: 1. Comminuted two-part fracture of proximal right humerus. Labs Labs: Laboratory Results - last 24 hr 09/20/24 09/20/24 09/20/24 05:05 08:10 11:45 WBC RBC Hgb Hct MCV MCH MCHC RDW Plt Count MPV Sodium Potassium Chloride Carbon Dioxide Anion Gap BUN Creatinine Estim Creat Clear Calc Estimated GFR Glucose POC Capillary Glucose 91 100 Calcium Total Bilirubin AST ALT Alkaline Phosphatase Total Protein Albumin Total T3 0.93 L 09/20/24 09/20/24 09/21/24 16:51 20:03 04:48 WBC 9.4 RBC 2.70 L Hgb 8.1 L Hct 26.1 L MCV 96.7 MCH 30.0 MCHC 31.0 L RDW 13.8 Plt Count 200 MPV 9.4 Sodium 140 Potassium 3.6 Chloride 113 H Carbon Dioxide 18 L Anion Gap 9 BUN 31 H Creatinine 2.48 H Estim Creat Clear Calc 20 Estimated GFR 19 L Glucose 95 POC Capillary Glucose 83 75 Calcium 8.4 Total Bilirubin 0.3 AST 16 ALT 13 Alkaline Phosphatase 85 Total Protein 5.0 L Albumin 2.7 L Total T3 Quality VTE Prophylaxis VTE prophylaxis: mechanical ordered and pharmacologic ordered
[2024-09-21 08:37] LABS: Immature Reticulocyte Fraction 14.9 % (3.0-15.9); Reticulocyte Hemoglobin Conten 31.1 pg (28.2-36.6); Reticulocyte Percent 2.59 % (0.7-4.3); Reticulocytes Absolute 0.07 10^6/uL (0.02-0.10)
[2024-09-21 08:44] LABS: Glucose Point of Care 85 mg/dl (65-105)
[2024-09-21 08:54] VITALS: PULSE 69
[2024-09-21] MEDS: APIXABAN 5 MG TABLET PO (08:54)
[2024-09-21] MEDS: METOPROLOL TARTRATE 50 MG TAB PO (08:54)
[2024-09-21] MEDS: ATORVASTATIN 10 MG TABLET PO (08:54)
[2024-09-21] MEDS: FUROSEMIDE 20 MG TABLET PO (08:55)
[2024-09-21] MEDS: GLIMEPIRIDE 2 MG TABLET PO (08:55)
[2024-09-21] MEDS: ACETAMINOPHEN 325 MG TABLET 650 MG PO ×2 (08:55→16:11)
[2024-09-21] MEDS: amLODIPine BESYLATE 10 MG TABLET PO (08:55)
[2024-09-21] MEDS: oxyCODONE HCL (*CRX) 5 MG TAB IR 10 MG PO (08:56)
[2024-09-21 09:10] LABS: Alanine Aminotransferase 13 U/L (6-35); Albumin Level 2.7 g/dL (3.5-5.1); Alkaline Phosphatase 86 U/L (38-126); Anion Gap 8 mmol/L (4-12); Aspartate Amino Transferase 17 U/L (14-36); Bilirubin,Total 0.3 mg/dL (0.2-1.3); Blood Urea Nitrogen 31 mg/dL (7-17); Calcium 8.3 mg/dL (8.4-10.2); Carbon Dioxide 18 mmol/L (22-30); Chloride 114 mmol/L (98-107); Estimated CRCL calculation 20 ml/min; Estimated Glomerular Filt Rate 19; Glucose 97 mg/dL (65-110); Potassium 3.7 mmol/L (3.4-5.0); Sodium 140 mmol/L (137-145)
[2024-09-21 09:52] LABS: Iron 29 ug/dL (37-170)
[2024-09-21 10:02] LABS: Transferrin 171 mg/dL (206-381)
[2024-09-21 10:07] LABS: Percent Iron Saturation 13 % (20-50)
[2024-09-21 12:14] LABS: Glucose Point of Care 110 mg/dl (65-105)
[2024-09-21 14:00] VITALS: BP 164/58; PULSE 68; RESP 18; TEMP 36.3; O2SAT 100
--- NOTE | 2024-09-21 15:12 | PM.DS ---
DS: Admitting Diagnosis Discharge Date 09/21/2024 Admitting Diagnosis Fall and weakness DS: Discharge Diagnosis Discharge Diagnosis (1) Fall: Code(s): W19.XXXA - Unspecified fall, initial encounter Status: Acute (2) UTI (urinary tract infection): Code(s): N39.0 - Urinary tract infection, site not specified Status: Acute (3) Type 2 diabetes mellitus with stage 4 chronic kidney disease: Qualifiers: Diabetes mellitus termite control servicer insulin use: with termite control servicer use Qualified Code(s): E11.22 - Type 2 diabetes mellitus with diabetic chronic kidney disease; N18.4 - Chronic kidney disease, stage 4 (severe); Z79.4 - termite control servicer (current) use of insulin Code(s): E11.22 - Type 2 diabetes mellitus with diabetic chronic kidney disease; N18.4 - Chronic kidney disease, stage 4 (severe) Status: Acute (4) Hypothyroidism: Code(s): E03.9 - Hypothyroidism, unspecified Status: Acute (5) Distal end of ulna fracture, closed: Code(s): S52.609A - Unspecified fracture of lower end of unspecified ulna, initial encounter for closed fracture Status: Ruled-out (6) Closed fracture of proximal end of right humerus: Qualifiers: Encounter type: initial encounter Fracture morphology: unspecified fracture morphology Qualified Code(s): S42.201A - Unspecified fracture of upper end of right humerus, initial encounter for closed fracture Code(s): S42.201A - Unspecified fracture of upper end of right humerus, initial encounter for closed fracture Status: Acute (7) Edema: Code(s): R60.9 - Edema, unspecified Status: Acute Plan This is a 74-year-old female presents to the ED after a fall. Over the past few months. Recent days ago on 09/16/2024 with fall forward onto her head and sustained right wrist fracture which was splinted in the ED and was discharged to follow-up with orthopedics as an outpatient basis. She had another mechanical fall and stroke her right shoulder a sliding to the ground. No syncope or loss of consciousness. No headache nausea vomiting chest pain shortness of breath fever chills. She also hit her head. She had a total of 3 falls in the last couple months DS: Summary Hospital Course Hospital Course: 74-year-old female past medical history of diabetes type 2, CKD stage 4, hypertension, atrial fibrillation and hypothyroidism presents the hospital after a fall. Patient was here on 09/16/2024 after a fall found to have a right wrist fracture and was sent home with her daughter. Today the patient had another fall with right arm pain. Patient states that she recently had COVID and had a fall at that time too. So she is total of 3 falls in the last couple months. In the ED the patient had leukocytosis of 14.8, UA was turbid with 1+ leukocyte esterase and 2+ bacteria. Upper extremity CT shows impacted fracture the proximal right humerus and possible distal ulnar fracture. CT head shows no acute process. I assumed care on 09/20/24: Patient was evaluated at the bedside. Patient reports he has a history of AFib, diabetes mellitus, hypertension, CKD and he follows with Dr. Prescott. Patient had multiple falls and most of them due to mechanical. Discussed with the PT/OT recommends SNF. 09/21: Resumed her home Diltiazem and discharged with Ortho recommendations. #Fall #Fracture of triquetral bone of right wrist #Closed fracture of proximal end of right humerus -Conservative management -Ortho order a cryo cuff for her shoulder -recommend ice and elevation on the wrist -remove the shoulder immobilizer intermittently for exercise, comfort, and hygiene -PT/OT recommend SNF #HTN -DC Amlodipine 10 mg PO QD -Start Diltiazem home meds -Titrate as needed as OP -Possible pain component #A.Fib -Continue Eliquis 5 mg PO BID -Continue Metoprolol 50 mg PO BID #Hypothyroidism -Continue Levo 100mcg #DM SSI Lantus 15 U HS Glimepiride 2mg Po QD #CHF Continue Lasix #CKD -DC fluids -Follows with as OP #Anemia -Order Anemia -Order Ferrous sulphate Status at Discharge Cognitive/behavioral status at discharge: Stable Time Spent with Patient Time attestation: Total time spent providing and/or coordinating discharge services:45 minutes Exam Narrative: General: well appearing, appears stated age. Facial contusion noted HEENT: normocephalic, atraumatic. Mucous membranes moist. Respiratory: clear to auscultation bilaterally. No rales Cardiovascular: Regular rate and rhythm, normal S1-S2 Abdomen: Soft, round, no pulsatile masses, nondistended and nontender. Extremities: No cyanosis, clubbing, . Pulses are palpable 2/2. Right upper extremity in sling and splint limited range of motion due to acute pain. Lower extremity edema Neuro: Alert and orientated x 4. PERRLA. Cranial nerves 2-12 intact without focal deficit. Skin: Warm, dry, and intact, without rash, erythema, or lesion. Psych: pleasant, cooperative, normal speech, normal affect, no hallucinations, no dysarthia DS: Data Data Completed and Pending Labs on day of discharge: Labs from last 24 hours 09/21/24 09/21/24 09/21/24 12:10 09:28 08:40 WBC RBC Hgb Hct MCV MCH MCHC RDW Plt Count MPV Absolute Retic Percent Retic Immature Retic Fraction Retic Hgb Content Haptoglobin Pending Sodium Potassium Chloride Carbon Dioxide Anion Gap BUN Creatinine Estim Creat Clear Calc Estimated GFR Glucose POC Capillary Glucose 110 H 85 Calcium Iron TIBC % Saturation Transferrin Grisel Transferrin Receptr Pending Ferritin Total Bilirubin AST ALT Alkaline Phosphatase Total Protein Albumin MEGAN, Poly Interpret MEGAN, Complement Interp 09/21/24 09/20/24 09/20/24 04:48 20:03 16:51 WBC 9.4 RBC 2.70 L Hgb 8.1 L Hct 26.1 L MCV 96.7 MCH 30.0 MCHC 31.0 L RDW 13.8 Plt Count 200 MPV 9.4 Absolute Retic 0.07 Percent Retic 2.59 Immature Retic Fraction 14.9 Retic Hgb Content 31.1 Haptoglobin Sodium 140 Potassium 3.7 Chloride 114 H Carbon Dioxide 18 L Anion Gap 8 BUN 31 H Creatinine 2.46 H Estim Creat Clear Calc 20 Estimated GFR 19 L Glucose 97 POC Capillary Glucose 75 83 Calcium 8.3 L Iron 29 L TIBC 219 L % Saturation 13 L Transferrin 171 L Grisel Transferrin Receptr Ferritin 58.80 Total Bilirubin 0.3 AST 17 ALT 13 Alkaline Phosphatase 86 Total Protein 5.0 L Albumin 2.7 L MEGAN, Poly Interpret Negative MEGAN, Complement Interp Not Performed Additional Comments Additional comments: ITS Impressions Head CT 09/18/24 15:33 IMPRESSION: No acute intracranial findings. Chest X-Ray 09/18/24 15:42 IMPRESSION: 1. Worsened airspace and interstitial opacities in the mid and lower lung zones, likely atelectasis. 2. Cardiomegaly. 3. Fracture deformity of proximal right humerus. Upper Extremity CT 09/18/24 15:43 IMPRESSION: Impacted fracture of the proximal metaphysis of the right humerus. Possible undisplaced fracture in the distal ulna. Wrist X-Ray 09/19/24 08:24 IMPRESSION: No change from previous examination. Shoulder X-Ray 09/19/24 08:25 IMPRESSION: 1. Comminuted two-part fracture of proximal right humerus. Discharge Plan Discharge Attending physician on discharge: Raul Villalta Consulting providers: Femi Moss; Jordi Frank Discharging Clinician: Raul Villalta Anticipated Discharge Date/Time: 09/21/24 15:06 Patient Disposition: NH Residential/Asst Living Activity: other - see discharge instructions Diet: heart healthy Discharge Instructions: Ortho instructions: D/C home with daughter. Follow up in office in 2 weeks with xray. Please call [facility] for appointment details. . She is scheduled on 10/04/24 @ 11:30. Xr order sent to [facility]. PT: Will start formal shoulder therapy in 2-3 weeks. Okay hand wrist and elbow range of motion as tolerated. Shoulder immobilizer or sling for the shoulder and wrist splint for the triquetral fracture. She may remove the shoulder immobilizer intermittently for exercise, comfort, and hygiene. Ice and elevation for the wrist and ice for the shoulder. DVT prophylaxis: May resume Eliquis. Check blood pressure 1 to 2 times a day. Record and bring into your doctor for review. Call your doctor if your blood pressure is greater than 180/110 or less than 90/45. Walk with cane or other assist device. Take precautions to avoid falls. Rise slowly from a lying or sitting position. Pause before standing or walking. Contact your doctor or call 911 and come to the Emergency Room if you have any type of trauma, lightheadedness with standing or other worrisome symptoms. Avoid NSAIDs (ibuprofen, naproxen, Aleve). Tylenol is safe to take. Follow-up with your primary care provider in 1-2 weeks. Please call for appointment. Thank you for using [facility] for your health care needs. Patient Instructions: Antibiotic Form, Apixaban (By mouth) Patient Language: Vietnamese Stand Alone Forms: General Discharge Information Follow-up/Referrals: Lavonne Markham PA [Physician Career Orientation Teacher] - Discharge Medications: New hydrocodone-acetaminophen 5-325 mg tablet 1 tablet PO Q8H PRN (Reason: pain) Qty: 12 0RF Continued cinnamon bark [Cinnamon] 500 mg capsule 1,000 mg PO BID esomeprazole magnesium [Nexium 24HR] 20 mg capsule,delayed release(DR/EC) 20 mg PO DAILY ascorbic acid (vitamin C) 125 mg tablet,chewable 125 mg PO DAILY (DME) lancets Misc See Rx Instructions .ROUTE .MEDSUPPLY Qty: 100 2RF Rx Instructions: Use once daily to check blood sugar (DME) blood-glucose meter Misc See Rx Instructions .ROUTE .MEDSUPPLY Qty: 1 0RF Rx Instructions: As directed diltiazem HCl 120 mg capsule,extended release 24hr 120 mg PO DAILY Qty: 90 0RF insulin glargine [Basaglar KwikPen U-100 Insulin] 100 unit/mL (3 mL) insulin pen 15 unit subcut QPM Rx Instructions: ADMINISTER 20 UNITS UNDER THE SKIN EVERY EVENING echinacea 400 mg Capsule 400 mg PO BID atorvastatin 10 mg tablet 10 mg PO DAILY Qty: 90 3RF metoprolol tartrate 50 mg tablet 50 mg PO BID Qty: 180 3RF (DME) OneTouch Ultra Test Strip See Rx Instructions .Route Qty: 100 11RF Rx Instructions: use to test once daily (DME) pen needle, diabetic [BD Ultra-Fine Orig Pen Needle] 29 gauge x 1/2 needle See Rx Instructions .ROUTE .MEDSUPPLY Qty: 100 3RF Rx Instructions: Inject daily levothyroxine 100 mcg tablet See Rx Instructions .ROUTE .COMPLEX Qty: 90 2RF Dose Instruction: TAKE 1 TABLET BY MOUTH DAILY Rx Instructions: TAKE 1 TABLET BY MOUTH DAILY Eliquis 5 mg tablet 5 mg PO BID Qty: 180 1RF glimepiride 1 mg tablet 2 mg PO QAM Qty: 180 1RF Rx Instructions: administer with breakfast ondansetron HCl 4 mg tablet 4 mg PO Q8H PRN (Reason: nausea and vomiting) Qty: 30 1RF amitriptyline 25 mg tablet 25 mg PO DAILY Qty: 90 3RF furosemide 20 mg tablet 20 mg PO QAM Qty: 90 2RF Date of admission: 09/18/24 18:55 Primary Care Provider: Maxime Henning Admitting Provider: Lm Gunn Attending physician on admission: Lm Gunn Condition: Stable
[2024-09-21 16:16] LABS: SARS-CoV-2 RNA PCR Negative (Negative)
[2024-09-22 13:18] LABS: Haptoglobin 187 mg/dL (43-212)
[2024-09-25 13:28] LABS: Soluble Transferrin Receptor 1.11 mg/L (0.76-1.76)
== END 2024-09-21 16:24 | DRG 563 ==
LOC: ANHED 16:33 → ANH2MED 22:53 → ANH3MEDSUR 09-22 13:21
PROVIDERS: Internal Medicine; Admitting Provider Family Medicine; Emergency Provider Student in an Organized Health Care Education/Training Program; PCP Family Medicine; Visit Provider General Practice
DX: S42.291A Other displaced fracture of upper end of right humerus, initial encounter for closed fracture (principal); N18.4 Chronic kidney disease, stage 4 (severe); I50.32 Chronic diastolic (congestive) heart failure; E11.319 Type 2 diabetes mellitus with unspecified diabetic retinopathy without macular edema; G47.33 Obstructive sleep apnea (adult) (pediatric); I12.9 Hypertensive chronic kidney disease with stage 1 through stage 4 chronic kidney disease, or unspecified chronic kidney disease; E11.22 Type 2 diabetes mellitus with diabetic chronic kidney disease; D64.9 Anemia, unspecified; E03.9 Hypothyroidism, unspecified; I48.91 Unspecified atrial fibrillation; W01.198A Fall on same level from slipping, tripping and stumbling with subsequent striking against other object, initial encounter; S62.111D Displaced fracture of triquetrum [cuneiform] bone, right wrist, subsequent encounter for fracture with routine healing; W19.XXXD Unspecified fall, subsequent encounter; Z86.73 Personal history of transient ischemic attack (TIA), and cerebral infarction without residual deficits; Z79.4 Long term (current) use of insulin; Z90.710 Acquired absence of both cervix and uterus; Z90.722 Acquired absence of ovaries, bilateral
CPT/HCPCS: 36415; 70450; 71045; 73030; 73110; 73200; 80048; 80053; 81001; 82306; 82607; 82728; 82746; 82948; 83010; 83036; 83540; 83550; 83735; 84238; 84439; 84443; 84466; 84480; 85025; 85027; 85046; 85610; 85730; 86850; 86880; 86900; 86901; 86902; 87086; 87635; 93005; 93306; 96374; 96375; 96376; 97110; 97116; 97161; 97165; 97530; 97535; 99285; A9270; J0360; J0696; J1171; J1815; J2405; J3475; J7030

== ENCOUNTER 2025-02-20 14:57 | Inpatient (IN) | payer MEDICARE, SELFPAY ==
[2025-02-20] VITALS (17 sets, daily range): BP systolic 173–246; BP diastolic 85–118; PULSE 69–99; RESP 13–25; TEMP 36.4; O2SAT 94–99
--- NOTE | ~2025-02-20 | CT_ITS ---
History: Right-sided weakness PROCEDURE: CT head without contrast. COMPARISON: 09/18/2024 TECHNIQUE: Axial imaging of the head performed from the skull base to the vertex without IV contrast. Sagittal a nd coronal reformations obtained. DLP: 681 mGy-cm FINDINGS: The ventricles are enlarged. The dilatation of the ventricles is proportional to the degree of sulcal prominence, not uncommon in the senescent brain. Decreased attenuation is identified within the periventricular white matter, likely secondary to micr ovascular ischemic disease, in a patient of this age. There is no mass, mass effect or midline shift. No loss of duncan-white matter differentiation to suggest an acute cerebral infarction. There is no abnormal extra-axial fluid collection or intracranial hemorrhage. Visualized paranasal sinuses are clear. The mastoid air cells are well aerated. No acute displaced fractures within the overlying cranium. Impression: No acute intracranial hemorrhage or suspicious mass effect. Stable CT examination of the brain when compared to 09/18/2024. Reviewed, dictated and finalized at location A. Impression: No acute intracranial hemorrhage or suspicious mass effect. Stable CT examination of the brain when compared to 09/18/2024.
--- NOTE | ~2025-02-20 | US_ITS ---
EXAMINATION: US carotid duplex BI DATE: 02/21/2025 16:06 INDICATION: Stroke. Prior right carotid surgery. TECHNIQUE: Grayscale, color Doppler, and pulsed Doppler images of the cervical carotid arteries were obtained. The degree of vessel stenosis is placed in one of the following categories: normal, <50%, 5 0-69%, >=70% but less than near-occlusion, near-occlusion, or total occlusion. Note that percent sten osis relative to normal distal artery lumen diameter is indirectly measured from velocity measurement s as described by Lane, et al. Radiology 2003; 229:340-346. COMPARISON: 09/15/2016 FINDINGS: RIGHT: The right common carotid artery (CCA) peak systolic velocity (PSV) is 98 cm/s. The right internal car otid artery (ICA) PSV is 95 cm/s. The right ICA end-diastolic velocity (EDV) is 19 cm/s. The right IC A/CCA PSV ratio is 1.0. Grayscale and color Doppler images yield an estimate of <50% diameter reducti on from plaque in the ICA. The external carotid artery (ECA) PSV is 151 cm/s. There is antegrade flow in the right vertebral artery. LEFT: The left CCA PSV is 105 cm/s. The left ICA PSV is 129 cm/s. The left ICA EDV is 24 cm/s. The left ICA /CCA PSV ratio is 1.2. Grayscale and color Doppler images yield an estimate of 50-69% diameter reduct ion from plaque in the ICA. The ECA PSV is 105 cm/s. There is antegrade flow in the left vertebral ar jhon. IMPRESSION: 1. <50% stenosis in the right internal carotid artery. 2. 50-69% stenosis in the left internal carotid artery. Reviewed, dictated and finalized at location A.
--- NOTE | 2025-02-20 15:09 | ECG_ITS ---
Test Date: 2025-02-20 15:24:16 Measurements Intervals [place] Rate: 71 P: 0 RI: 0 QRS: -17 QRSD: 85 T: 76 QT: 369 QTc: 403 Interpretive Statements CONSIDER ATRIAL FIBRILLATION (SIGNIFICANT BASELINE ARTIFACT) CONSIDER ANTERIOR INFARCT, AGE INDETERMINATE BORDERLINE ST-T WAVE ABNORMALITY- HIGH LATERAL LEADS BASELINE ARTIFACT- I, II, III, AVR, AVL, AVF, V1-V6 ABNORMAL ECG Compared to ECG 09/18/2024 16:18:16 Sinus rhythm no longer present Electronically Signed On 02-20-2025 15:53:59 CDT by Ed Turner D.O.
--- NOTE | 2025-02-20 15:11 | ED_ITS ---
HPI - Altered Mental Status General Chief Complaint: Unspecified Stated Complaint: low blood pressure due to dental procedure Time Seen by Provider: 02/20/25 15:03 History of Present Illness HPI narrative: Pt was having dental extraction today at local dentist. Pt during course of procedure was given propofol 30mg, versed 3 mg and fentanyl 100 micrograms. Pt dropped blood pressure apparently and pt given phenylephrine to improve pressure. Pt is feeling better now. Pt denies CP or SOB. Pt says she is numb and tingly all over. Related Data Home Medications ?Medication ?Instructions ?Recorded ?Confirmed ?Last Taken ?Type ascorbic acid (vitamin C) 125 mg 125 mg PO DAILY 08/03/19 12/13/24 Unknown History chewable tablet cinnamon bark 500 mg capsule 1,000 mg PO BID 08/03/19 12/13/24 09/18/24 History (Cinnamon) esomeprazole magnesium 20 mg 20 mg PO DAILY 08/03/19 12/13/24 09/18/24 History capsule,delayed release (Nexium 24HR) echinacea 400 mg capsule 400 mg PO BID 01/19/20 12/13/24 09/18/24 History insulin glargine 100 unit/mL (3 15 unit subcut QPM 09/18/24 12/13/24 09/17/24 History mL) subcutaneous pen (Basaglar KwikPen U-100 Insulin) Allergies Allergy/AdvReac Type Severity Reaction Status Date / Time Sulfa (Sulfonamide Allergy Unknown Hives Verified 02/20/25 15:38 Antibiotics) Review of Systems 2 Review of Systems: All systems reviewed & are unremarkable except as noted in HPI and below PMFSH Past Medical History Medical History COVID Diabetes with retinopathy Hypertensive CKD (chronic kidney disease) Long-term insulin use Hypertension LUZ MARIA (obstructive sleep apnea) Afib Diabetes mellitus type 2, uncontrolled Hypothyroidism Transient cerebral ischemia Surgical History Surgical History Closed right hip fracture s/p ORIF Status post hysterectomy with oophorectomy Family History Family History Father Patient's father is Sibling Patient's brother is Social History Social History Social History: , lives alone, retired Smoking status: Never smoker Second hand tobacco smoke exposure: No Alcohol intake: never Substance use: never Substance use type: does not use Do You Feel Safe in your Home?: Yes Lack of Transportation: No Lack of Food: Never True Current Housing: I Have Housing Concerned About Future Housing: No Difficulty Paying Gas/Electric Bills: No Difficulty Paying for Meds: No Currently Unemployed: No Education: High School Diploma/GED Difficulty w/ Childcare or Family Care: No Living arrangements: with family Occupation/Education: occupation Additional occupation/education comments: worked at [email or web address] before retiring Gender identity (if verbalized by the patient): Female Sexual Orientation (if Verbalized by the Patient): Straight or Heterosexual Spiritual care concerns: No Exam 2 Const: General: cooperative and no acute distress Nutritional Appearance: o bese Orientation/consciousness: patient oriented x3 Limitations: no limitations HENMT: Mouth: Yes other (sutures in place lower gums) Eyes: EOM: EOMs intact bilaterally Resp: Effort & Inspection: normal respiratory effort and able to speak in complete sentences Auscultation: clear to auscultation bilaterally Cardio: Rate: regular rate Rhythm: regular rhythm GI: Inspection: normal to inspection GI Palp: No abdominal tenderness A uscultation: normal bowel sounds Skin: General skin exam: normal color and turgor normal Other: diaphoretic Neuro: General: patient oriented x3, no meningeal signs, no focal motor deficits and CN's II-XI intact bilaterally Other: complaints of numbness and tingling all over but able to feel light touch Extrem: General: full ROM and no clubbing, cyanosis or edema Psych: Appearance: grossly normal Mental Status: mental status grossly normal Speech and movement: Normal speech and movement present Affect: n ormal affect Attitude: cooperative Course Vital Signs Vital signs: Vital Signs Temperature 97.6 F 02/20/25 14:57 Pulse Rate 69 02/20/25 14:57 Respiratory Rate 17 02/20/25 14:57 Blood Pressure 189/89 H 02/20/25 14:57 Pulse Oximetry 94 02/20/25 14:57 Oxygen Delivery Room Air 02/20/25 14:57 Temperature 97.6 F 02/20/25 14:57 Pulse Rate 91 02/20/25 18:56 Respiratory Rate 16 02/20/25 18:56 Blood Pressure 194/96 H 02/20/25 18:56 Pulse Oximetry 99 02/20/25 18:56 Oxygen Delivery Room Air 02/20/25 14:57 MDM - Altered Mental Status MDM Narrative Medical decision making narrative: Pt received propofol 30 mg, versed 3 mg, fentanyl 100 mcg IV over several hour dental procedure and dropped her BP and given phenylephrine. Pt BP better now and pt feeling better. Pt says she is numb and tingly all over. will check some labs and give IV fluids and observe but is likely the result of anesthesia meds given. Pt has low magnesium, when went in room to discuss low magnesium, pt said that her right hand is weak and she can't lift her right leg. on exam pt has weak principal web developer on right and is unable to lift right leg. Pt has full strength on left. Pt says she noticed the full body numbness resolved about 30 minutes ago and then she had the weakness on the right so technically right sided weakness started at 1740. CT brain neg for bleed. called [facility] and discussed with Dr Harper who said this is not a time critical diagnosis as the last known well was actually before her dental procedure. He does not believe she is a candidate for TPA. He accepts her as transfer to [facility] neuro unit but not ER. informed patient and daughter of discussion with neurology and plans to transfer, but may not be immediate.will report to oncoming doctor while awaiting bed at [facility] Lab Data 02/20/25 15:33 02/20/25 17:18 Labs: Lab Results 02/20/25 02/20/25 Range/Units 15:33 17:18 WBC 11.2 H (4.5-10.0) K/mm3 RBC 3.49 L (4.2-5.4) M/mm3 Hgb 10.2 L (12.0-15.0) g/dL Hct 32.9 L (37.0-47.0) % MCV 94.3 (80-100) fl MCH 29.2 (26-34) pg MCHC 31.0 L (32-36) g/dl RDW 13.1 (11.5-14.5) % Plt Count 202 (150-375) k/mm3 MPV 9.4 (7.4-10.4) fl Immature Gran % (Auto) 0.4 (0-0.5) % Neut % (Auto) 81.8 H (45.5-73.1) % Lymph % (Auto) 11.9 L (18.3-44.2) % Weld % (Auto) 4.6 (2.6-8.5) % Eos % (Auto) 0.9 (0-4.4) % Baso % (Auto) 0.4 (0.2-1.2) % Lymph # (Auto) 1.34 (0.9-3.2) K/mm3 Weld # (Auto) 0.5 (0.1-0.6) K/mm3 Eos # (Auto) 0.1 (0-0.3) K/mm3 Baso # (Auto) 0.1 (0.0-0.1) K/mm3 Abs Immat Gran (auto) 0.05 H (0.00-0.031) K/mm3 Absolute Neuts (auto) 9.2 H (1.3-6.7) K/mm3 Absolute Nucleated RBC 0.000 (0.0-0.012) K/mm3 Nucleated RBC % 0.0 (0.0-0.2) % Sodium 139 (137-145) mmol/L Potassium 3.7 (3.4-5.0) mmol/L Chloride 110 H (98-107) mmol/L Carbon Dioxide 19 L (22-30) mmol/L Anion Gap 10 (4-12) mmol/L BUN 29 H (7-17) mg/dL Creatinine 2.56 H (0.7-1.0) mg/dL Estim Creat Clear Calc 20 ml/min Estimated GFR 18 L (59 - ) Glucose 180 H (65-110) mg/dL Calcium 10.0 (8.4-10.2) mg/dL Magnesium 1.1 L (1.6-2.3) mg/dL Total Bilirubin 0.4 (0.2-1.3) mg/dL AST 31 (14-36) U/L ALT 23 (6-35) U/L Alkaline Phosphatase 141 H (38-126) U/L Troponin I < 0.012 (0.000-0.034) ng/mL Total Protein 7.1 (6.3-8.2) g/dL Albumin 4.0 (3.5-5.1) g/dL Discharge Plan Discharge Clinical Impression: Hypomagnesemia, Right sided weakness Patient Disposition: Acute Care Hospital Condition: Guarded Prognosis Patient Language: Vietnamese Prescriptions: No Action cinnamon bark [Cinnamon] 500 mg capsule 1,000 mg PO BID esomeprazole magnesium [Nexium 24HR] 20 mg capsule,delayed release(DR/EC) 20 mg PO DAILY ascorbic acid (vitamin C) 125 mg tablet,chewable 125 mg PO DAILY (DME) lancets Mis See Rx Instructions .ROUTE .MEDSUPPLY Qty: 100 2RF Rx Instructions: Use once daily to check blood sugar (DME) blood-glucose meter [facility] See Rx Instructions .ROUTE .MEDSUPPLY Qty: 1 0RF Rx Instructions: As directed diltiazem HCl 120 mg capsule,extended release 24hr 120 mg PO DAILY Qty: 90 0RF furosemide 40 mg tablet 40 mg PO QAM Qty: 90 2RF insulin glargine [Basaglar KwikPen U-100 Insulin] 100 unit/mL (3 mL) insulin pen 15 unit subcut QPM Rx Instructions: ADMINISTER 20 UNITS UNDER THE SKIN EVERY EVENING echinacea 400 mg Capsule 400 mg PO BID (DME) OneTouch Ultra Test Strip See Rx Instructions .Route Qty: 100 11RF Rx Instructions: use to test once daily (DME) pen needle, diabetic [BD Ultra-Fine Orig Pen Needle] 29 gauge x 1/2 needle See Rx Instructions .ROUTE .MEDSUPPLY Qty: 100 3RF Rx Instructions: Inject daily levothyroxine 100 mcg tablet See Rx Instructions .ROUTE .COMPLEX Qty: 90 2RF Dose Instruction: TAKE 1 TABLET BY MOUTH DAILY Rx Instructions: TAKE 1 TABLET BY MOUTH DAILY ondansetron HCl 4 mg tablet 4 mg PO Q8H PRN (Reason: nausea and vomiting) Qty: 30 1RF amitriptyline 25 mg tablet 25 mg PO DAILY Qty: 90 3RF hydrocodone-acetaminophen 5-325 mg tablet 1 - 2 tablet PO Q6-8H PRN (Reason: pain) Qty: 30 0RF atorvastatin 10 mg tablet 10 mg PO DAILY Qty: 90 3RF Eliquis 5 mg tablet 5 mg PO BID Qty: 180 1RF glimepiride 1 mg tablet 2 mg PO QAM Qty: 180 1RF Rx Instructions: administer with breakfast metoprolol tartrate 50 mg tablet 50 mg PO BID Qty: 180 2RF Follow-up/Referrals: Maxime Henning MD [Primary Care Provider] -
[2025-02-20] MEDS: SODIUM CHLORIDE 0.9% IV 1,000 ML 999 ML IV CONT (15:34)
[2025-02-20 15:38] LABS: Hematocrit 32.9 % (37.0-47.0); Hemoglobin 10.2 g/dL (12.0-15.0); Immature Granulocyte Percent A 0.4 % (0-0.5); Lymphocytes Absolute Auto 1.34 K/mm3 (0.9-3.2); Mean Corpuscular HGB Conc 31.0 g/dl (32-36); Mean Corpuscular Hemoglobin 29.2 pg (26-34); Mean Corpuscular Volume 94.3 fl (80-100); Nucleated Red Blood Cells Absolute Auto 0.000 K/mm3 (0.0-0.012); Nucleated Red Blood Cells Perc 0.0 % (0.0-0.2); Platelet Count Result 202 k/mm3 (150-375); Red Blood Count 3.49 M/mm3 (4.2-5.4); White Blood Count 11.2 K/mm3 (4.5-10.0)
--- OUTSIDE RECORDS SUMMARY | 2025-02-20 15:44 | XMS_ITS | Clinical Summary ---
Author Organization [facility] Address [address] [place] [address] Care Team Providers Care Dough Cutting Machine Operator Name Role Phone Maxime Henning MD Primary Care Provider [phone] Allergies Active Allergy Reactions Criticality Noted Date [...] StripUSE DAILY DIRECTED TO TEST BLOOD SUGAR [id number] Aguiar 3 Active hydroCHLOROthia zide 25 MG tablet Take 1 tablet by mouth daily. 3 Active levothyroxine 88 MCG tablet Take 88 mcg by mouth daily. 0 Active lisinopril 40 MG tablet 3 Active metFORMIN 500 MG tablet Take 2 tablets by mouth 2 (two) times daily. 3 Active Multiple Vitamins tablet Acti ve [place] 3 1000 MG Cap Take by mouth [...] diabetes mellitus wit h chronic kidney disease ([facility]) 10/20/2015 Diarrhea 08/17/2013 Hematochezia 12/02/2012 Knee pain 11/08/2012 Joint pain, hip 11/08/2012 Sciatica 10/14/2012 Type 1 diabetes mellitus ([facility]) 10/14 Esophageal reflux 02/11/2012 Fibromyalgia 02/11/2012 Hypertension 02/11/2012 Hypothyroidism 02/11/2012 Diabetes mellitus, controlled ([facility]) 02/11/2012 Resolved Problems Problem Noted Date [...] AM CDT Pulse 75 08/29/2013 4:18 PM DOG GROOMER Temperature - - Respiratory Rate - - Oxygen Saturation - - Inhaled Oxygen Concentration - - Weight 105.2 kg (232 lb) 12/14/2019 11:42 AM CDT Height 162.6 cm (5' 4) 12/14/2019 11:42 AM CDT Body Mass Index [...] 2015 Dexa Scan (General) 2015 Pneumococcal Vaccine: 50+ Ye ars (2 of 2 - PPSV23) 07/31/2018 06/05/2018 COVID-19 Vaccine (1 - 2023-2 5 season) 2024 Meningococcal B Vaccine Aged Out No l [...] Comments HEMOGLOBIN, GLYCOSYLATED Routine 08/23/2012 8:45 AM DOG GROOMER from Last 3 Months or Most Recently Relevant to Health Maintenance Results * (ABNORMAL) HEMOGLOBIN, GLYCOSYLATED (08/23/2012 8:45 AM DOG GROOMER) HGB A1C 7.8 INCREASED RISK OF DIABETES <5.7% NON-DIABETES 5.7-6.4% INCREASED RISK FOR FUTURE DIABETES > OR = 6.5 CONSISTENT WITH DIABETES STANDARDS OF MEDICAL CARE IN DIABETES-2010 DIABETES CARE, 33(SUPP 1): S1-S61,2010 (H) <5.7 % [employer] TO EPIC CONVERSION 08/23/2012 8:45 AM DOG GROOMER 08/23/2012 8:45 AM DOG GROOMER Narrative [employer] TO EPIC CONVERSION - 08/23/2012 8:53 AM DOG GROOMER Result Communication: Call patient with results Russell Reinoso MD LABORATORY Final Result [employer] TO EPIC CONVERSION from Last 3 Months or Most Recently Relevant to Health Maintenance Insurance MEDICARE [facility] Care Teams Dough Cutting Machine Operator Relationship Specialty Start Date End Date Maxime Henning MD [address] [place] [address] PCP - General FAMILY PRACTICE 11/20/19
--- OUTSIDE RECORDS SUMMARY | 2025-02-20 15:44 | XMS_ITS | Clinical Summary ---
Author Organization [facility] Address [address] [place] [address] Phone Care Team Providers Care Clinical Evaluator Name Role Phone Maxime Henning MD Primary Care Provider [phone] Allergies Active Allergy Reactions Criticality Noted Date Comments Sulfa Antibiotics Rash Low Medications aspirin (ST KAYLI) 81 MG EC tablet 1 tab/cap qday 0 7 Active glipiZIDE (GLUCOTROL) 5 MG tablet 1 tab/cap bid 0 6 Active amLODIPine (NORVASC) 5 MG tablet 0 Active atorvastatin (LIPITOR) 10 MG tablet 0 Active chlorthalidone (HYGROTON) 25 MG tablet 0 Active lisinopril (PRINIVIL,ZESTR IL) 40 MG tablet 0 Active amitriptyline (ELAVIL) 25 MG tablet 0 Active Cholecalciferol (VITAMIN D3) 25 MCG (1000 UT) capsule Take 1,000 Units by mouth daily Active apixaban (ELIQUIS) 5 MG tablet Take 5 mg by mouth 2 times daily Active magnesium oxide (MAG-OX) 400 MG tablet Take 400 mg by mouth 2 times daily 0 Active glimepiride (AMARYL) 1 MG tablet TK 1 T PO QAM WITH BREAKFAST. 0 Active levothyroxine (SYNTHROID) 88 MCG tablet TK 1 T PO D 0 Active MAGnesium-Oxide 400 (241.3 Mg) MG tablet TK 1 T PO BID 0 Active cinnamon 500 MG capsule Take 1,000 mg by mouth daily Active Basaglar KwikPen 100 UNIT/ML injection INJECT 10 UNIT (0.1 ML) SUB Q EVERY PM 1 Active BD ULTRA-FINE PEN NEEDLES 29G X 12.7MM misc USE TO INJECT ONCE PER DAY 1 Active furosemide (LASIX) 20 MG tablet TAKE 1 TABLET (20 MG TOTAL) BY MOUTH DAILY NEEDED (SWELLING) 1 Active metoprolol tartrate (LOPRESSOR) 50 MG tablet Take 50 mg by mouth 2 (two) times a day 1 Active Accu-Chek Coreen Plus test strip 1 Active Febuxostat (ULORIC) 40 MG tablet Take 40 mg by mouth 1 (one) time each day 2 Active ondansetron (ZOFRAN) 4 MG tablet TAKE 1 TABLET BY MOUTH EVERY 6 HOURS NEEDED FOR NAUSEA OR VOMITING 2 Active Ozempic, 0.25 or 0.5 MG/DOSE, 2 MG/1.5ML solution pen-injector ADMINISTER 0.5 MG UNDER THE SKIN WEEKLY FOR 4 DOSES 2 Active Active Problems Problem Noted Date Diagnosed [...] Gastroesophageal reflux disease 02/11/2012 Hypothyroidism 02/11/2012 Immunizations Immunization Administration Dates Next Due Influenza TIV (IM) [...] drink = 0.6 oz pur e alcohol) Comments Unknown Sex and Gender Information Value Date Recorded Sex Assigned at Not on file Legal Sex Female 8:08 AM [facility] Gender Identity Not on file Sexual Orientation [...] 3:18 PM CDT Height 160 cm (5' 3) 02/18/2022 3:18 PM CDT Body Mass Index 39.86 02/18/2022 3:18 PM CDT Plan of Treatment Health Maintenance Due Date Last Done Comments Pneumococcal PPSV23/PCV13 65 + Years / Low and Medium Risk (2 of 3 - PCV20 or PCV21) 06/05/2019 06/05/2018 Influenza Vaccine (#1) 2025 05/20/2016 Insurance MEDICARE [employer] [facility] [place] [id number] Care Teams Clinical Evaluator Relationship Specialty Start Date End Date Maxime Henning MD [address] [facility] [address] [facility] [address] [place] [id number] PCP - General Internal Medicine 11/15/18
--- OUTSIDE RECORDS SUMMARY | 2025-02-20 15:44 | XMS_ITS | Encounter Summary ---
Author Organization [facility] Address [address] [place] [address] Care Team Providers Care Spinner Concrete Pipe Name Role Phone Maxime Henning MD Primary Care Provider [phone] Encounter Details Date Type Department Care Team (Latest Contact Info) Description 05/17/2018 Abstract [facility] , Generic Conversion, Social History [...] on filedocumented in this encounter Care Teams Spinner Concrete Pipe Relationship Specialty Start Date End Date Maxime Henning MD [address] [facility] [address] [place] [address] PCP - General FAMILY PRACTICE 11/20/19 documented as of this encounter
--- OUTSIDE RECORDS SUMMARY | 2025-02-20 15:44 | XMS_ITS | Clinical Summary ---
Author Organization [facility] [address] Address [address] [place] [address] Care Team Providers Care Silversmith Apprentice Name Role Phone Maxime Henning MD Primary [...] mL) pen for injection 10/14/19 21 Active febuxostat (ULORIC) 40 mg tablet [...] DAYS NEEDED FOR PAIN 09/17/19 25 Active furosemide (LASIX) 40 mg tabletIndications:H ypertension associated with diabetes (HCC) Take 1 tablet (40 mg total) by mouth daily 90 tablet 2 09/20/19 25 Active losartan (COZAAR) 25 mg tabletIndications:H ypertension associated with diabetes (HCC) Take 1 tablet (25 mg total) by mouth daily 30 tablet 11 02/01/20 25 026 Active hydrALAZINE (APRESOLINE) 25 mg tabletIndications:h ypertension Take 1 tablet (25 mg total) by mouth 3 (three) times a day 90 tablet 11 02/09/20 25 026 Active Active Problems Problem Noted Date Diagnosed [...] Encounters Date Type Department Care Team Description 02/08/2025 Results Follow-Up [facility] Cardiology [address] [place] [phone] Rikki Rajan MD Basic metabolic panel 02/05/2025 Telephone [facility] Cardiology [address] [place] [address] Rikki Rajan MD 01/29/2025 Telephone [facility] Cardiology [address] [place] [address] Rikki Rajan MD from Last 3 Months Surgical History Surgery [...] on file Legal Sex Female 9:39 AM [employer]KE[employer] Gender Identity Not on file Sexual Orientation Not on file Obstetrics History Last Filed Vital Signs Vital Sign Reading Time Taken Comments Blood Pressure 150/92 11/02/2024 11:44 AM CDT Pulse 77 11/02/2024 11:44 AM CDT Temperature 35.8 C (96.4 F) 12/13/2019 11:58 AM CDT Respiratory Rate - - Oxygen Saturation 96% 11/02/2024 11:44 AM CDT Inhaled Oxygen Concentration - - Weight 88.5 kg (195 lb) 11/02/2024 11:44 AM CDT Height 162.6 cm (5' 4) 11/02/2024 11:44 AM CDT Body Mass Index 33.47 11/02/2024 11:44 AM CDT Plan of Treatment Health Maintenance Due Date Last Done Comments Albumin Creatinine Ratio, Urine 1950 Breast Cancer Screening-Mammogram 1950 Colon Cancer Screening-Colonoscopy 1950 Fall Risk Assessment 1950 Hemoglobin A1C 1950 Hepatitis C Screening 1950 Osteoporosis Screening-Bone Density Scan 1950 Dilated Eye Exam 1950 Foot Exam 1950 DTaP/Tdap/Td Vaccine (1 - Tdap) 1961 Hepatitis B Screening 1968 Zoster Vaccine (1 of 2) 2000 Well Visit 65+ 2015 Pneumococcal vaccine 65+ (2 of 2 - PPSV23, PCV20, or PCV21) 07/31/2018 06/05/2018 Depression Screening 12/12/2020 12/13/2019 Covid-19 Vaccine (5 - 2023-2 5 season) 2024 07/22/2021, 12/07/2020, 11/09/2020, Additional history exists Influenza Vaccine (#1) 2025 05/20/2016, 2015 Lipid Panel 09/18/2025 09/18/2024, /03/2024, 08/26/2022, Additional history exists eGFR 02/07/2026 02/07/2025 Procedures Procedure Name Priority Date/Time Associated Diagnosis Comments BASIC METABOLIC PANEL Routine 02/07/2025 8:52 AM CDT Hypertension associated with diabetes (HCC) POCT LIPID PANEL Routine 09/18/2024 11:1 0 AM CDT Lipid screening from Last 3 Months or Most Recently Relevant to Health Maintenance Results * (ABNORMAL) Basic metabolic panel (02/07/2025 8:52 AM CDT) Glucose 115(H) 65 - 99 mg/dL [facility] Comment: Fasting reference interval For someone without known diabetes, a glucose value between 100 and 125 mg/dL is consistent with prediabetes and should be confirmed with a follow-up test. BUN 34(H) 7 - 25 mg/dL [facility] Creatinine 3.02(H) 0.60 - 1.00 mg/dL [facility] eGFR 16(L) > OR = 60 mL/min/1.7 3m2 [facility] BUN/creat ratio 11 6 - 22 (calc) [facility] Sodium 142 135 - 146 mmol/L [facility] Potassium, pl 3.7 3.5 - 5.3 mmol/L [facility] Chloride 108 98 - 110 mmol/L [facility] CO2 25 20 - 32 mmol/L [facility] Calcium 9.7 8.6 - 10.4 mg/dL [facility] Blood 02/07/2025 8:52 AM CDT 02/07/2025 8:52 AM CDT Rikki Rajan MD LAB BLOOD ORDERABLES Jeane l Result [facility] [address] [place] [address] * POCT lipid panel (09/18/2024 11:10 AM [...] Most Recently Relevant to Health Maintenance Insurance [facility] MEDICARE ADVANTAGE Care Teams Silversmith Apprentice Relationship Specialty Start Date End Date Maxime Henning MD [address] [facility] [address] [place], [place] [id number] PCP - General Family Medicine 12/11/19
--- NOTE | 2025-02-20 16:02 | PC.NURSE ---
pt is is difficult stick, this RN was informed that phlebotomy was called at 1601
--- NOTE | 2025-02-20 17:02 | PC.NURSE ---
EDP aware of pt vital signs
[2025-02-20] MEDS: MORPHINE SULFATE (*CRX) 2 MG/ML INJ IV PUSH ×2 (17:13→20:14)
[2025-02-20 17:43] LABS: Alanine Aminotransferase 23 U/L (6-35); Albumin Level 4.0 g/dL (3.5-5.1); Alkaline Phosphatase 141 U/L (38-126); Anion Gap 10 mmol/L (4-12); Aspartate Amino Transferase 31 U/L (14-36); Bilirubin,Total 0.4 mg/dL (0.2-1.3); Blood Urea Nitrogen 29 mg/dL (7-17); Calcium 10.0 mg/dL (8.4-10.2); Carbon Dioxide 19 mmol/L (22-30); Chloride 110 mmol/L (98-107); Estimated CRCL calculation 20 ml/min; Estimated Glomerular Filt Rate 18; Glucose 180 mg/dL (65-110); Magnesium 1.1 mg/dL (1.6-2.3); Potassium 3.7 mmol/L (3.4-5.0); Sodium 139 mmol/L (137-145); Total Protein 7.1 g/dL (6.3-8.2)
[2025-02-20 17:50] LABS: Troponin I < 0.012 ng/mL (0.000-0.034)
[2025-02-20] MEDS: MAGNESIUM SULF 1 GM/D5W 100 ML 1 GM/100 ML BAG IVPB (19:03)
[2025-02-21] VITALS (15 sets, daily range): BP systolic 185–225; BP diastolic 88–109; PULSE 85–102; RESP 15–20; TEMP 36.1–36.9; O2SAT 95–99; BMI 37.4
--- NOTE | 2025-02-21 | ECHO_ITS ---
Patient Info Name: Yesica Marcial Age: 74 years : 1950 Gender: Female Ht: 64 in Wt: 218 lbs BSA: 2.16 m2 HR: 97 bpm BP: 209 / 95 mmHg Heart Rhythm: Atrial Flutter Technical Quality: Fair Exam Date: 02/21/2025 2:14 PM Patient Status: I Admit Date: 02/21/2025 Exam Type: CA echo dop bubble study w con Complete two-dimentional, color flow and Doppler transthoracic echocardiogram is performed with agitated saline and with contrast to opacify the left ventricle and to improve the delineation of the left ventricle endocardial borders. Staff Referring Physician: Raul Villalta Rural Carrier: Skye Tracy Attending Provider: Raul Villalta Contrast/Agitated Saline Contrast/Ag. Saline: Agitated Saline Amount: 20.00 ml Existing IV Access: Yes IV Access Condition: patent with no signs of infiltration Contrast/Ag. Saline: Definity Amount: 2.00 ml Administered By: Skye Tracy Existing IV Access: Yes IV Access Condition: patent with no signs of infiltration Summary 1. Left ventricular chamber dimension is normal. 2. Left ventricular systolic function is normal, estimated at 65-70. 3. There is moderately increased left ventricular wall thickness. 4. The left ventricular diastolic function is abnormal. 5. Left atrial chamber dimension is mildly enlarged. 6. Right atrial chamber dimension is mildly enlarged. 7. Intact interatrial septum visualized by color flow and agitated saline imaging. 8. There is mild mitral valve regurgitation. 9. There is small pericardial effusion. 10. atrial flutter. Left Ventricle Left ventricular chamber dimension is normal. Left ventricular systolic function is normal, estimated at 65-70. There is moderately increased left ventricular wall thickness. The left ventricular diastolic function is abnormal. Right Ventricle Right ventricular chamber dimension is normal. Right ventricular systolic function is normal. Left Atria Left atrial chamber dimension is mildly enlarged. Right Atria Right atrial chamber dimension is mildly enlarged. Atrial Septum Intact interatrial septum visualized by color flow and agitated saline imaging. Aortic Valve The aortic valve is trileaflet. There is mild aortic valve sclerosis. There is no aortic valve stenosis. There is trace aortic valve regurgitation. Pulmonic Valve The pulmonic valve is normal. There is no pulmonic valve stenosis. There is trace pulmonic regurgitation. Mitral Valve The mitral valve has normal leaflets. There is no mitral valve stenosis. There is mild mitral valve regurgitation. Tricuspid Valve The tricuspid valve leaflets are normal. There is no significant tricuspid valve stenosis. There is trace tricuspid valve regurgitation. Other Findings atrial flutter. Pericardium/Pleural The pericardium appears normal. There is small pericardial effusion. Inferior Vena Cava Normal inferior vena cava with >50% collapse upon inspiration consistent with normal right atrial pressure, 5 mmHg. Aorta The aortic root size at the sinus of Valsalva is normal. The prox ascending aorta size is normal. Left Ventricular Outflow Tract Name Value Normal LVOT 2D LVOT Diameter 2.2 cm LVOT Doppler LVOT Peak Velocity 71 cm/s LVOT Peak Gradient 2 mmHg LVOT Mean Gradient 1 mmHg LVOT VTI 10 cm LVOT VTI/AV VTI Ratio 0.5 LVOT Stroke Volume 39 ml LVOT CO 3.8 l/min LVOT CI 1.8 l/min/m2 Pulmonic Valve Name Value Normal RVOT Doppler RVOT Peak Velocity 92 cm/s RVOT Peak Gradient 3 mmHg PV Doppler PV Peak Velocity 112 cm/s PV Peak Gradient 5 mmHg Mitral Valve Name Value Normal MV Diastolic Function MV E Peak Velocity 102 cm/s MV A Peak Velocity 1 cm/s MV E/A 128.3 MV Decel Time (PW) 180 ms MV Annular TDI MV E/e' (Septal) 14.3 MV E/e' (Lateral) 14.0 MV E/e' (Average) 14.2 Tricuspid Valve Name Value Normal Estimated PAP/RSVP RA Pressure 5 mmHg <=5 TV Annular TDI TV Lateral Luna s' Velocity 10.5 cm/s >=9.5 Aorta Name Value Normal Ascending Aorta Ao Root Diameter (MM) 3.1 cm Ao Root Diam Index (MM) 1.4 cm/m2 Aortic Valve Name Value Normal AV Doppler AV Peak Velocity 126 cm/s AV Peak Gradient 6 mmHg AV Mean Gradient 3 mmHg AV VTI 20 cm AV Area (Cont Eq VTI) 2.0 cm2 >=3.0 AV Area (Cont Eq Harley) 2.1 cm2 AV DI (Harley) 0.57 AV Regurgitation 2D LVOT Area 3.7 cm2 Ventricles Name Value Normal LV Dimensions 2D/MM IVS Diastolic Thickness (2D) 1.3 cm 0.6-1.0 LVID Diastole (2D) 4.1 cm 3.8-5.2 LVIW Diastolic Thickness (2D) 1.2 cm 0.6-0.9 LVID Systole (2D) 2.8 cm 2.2-3.5 LVOT Diameter 2.2 cm LV Mass (2D Cubed) 187.47 g 67.00-162.00 LV Mass Index (2D Cubed) 87 g/m2 43-95 Relative Wall Thickness (2D) 0.59 <=0.42 LV Fractional Shortening/Ejection Fraction 2D/MM LV Fractional Shortening (2D) 32 % 27-45 LV EF (2D Teichholz) 61 % LV Diastolic Volume (4C MOD) 87 ml LV EF (4C MOD) 73 % LV Diastolic Volume (2C MOD) 45 ml LV EF (2C MOD) 63 % LV Diastolic Volume (BP MOD) 68 ml 46-106 LV Diastolic Volume Index (BP MOD) 31 ml/m2 29-61 LV Systolic Volume (BP MOD) 20 ml 14-42 LV Systolic Volume Index (BP MOD) 9 ml/m2 8-24 LV EF (BP MOD) 70 % 54-74 LV Diastolic Length (4C) 7.7 cm LV Systolic Length (4C) 6.0 cm LV Stroke Volume (4C MOD) 64 ml Atria Name Value Normal LA Dimensions LA Dimension (MM) 4.0 cm 2.7-3.8 LA Volume (4C A-L) 76 ml LA Volume (BP A-L) 70 ml RA Dimensions RA Area (4C) 11.7 cm2 <=18.0 Report Signatures
--- NOTE | 2025-02-21 03:32 | PC.NURSE ---
[facility] transfer center called for pt update. states pt is still accepted but no bed availability as yet.
--- NOTE | 2025-02-21 09:11 | ED_ITS ---
HPI - General Adult General Chief complaint: Unspecified Stated complaint: low blood pressure due to dental procedure Time Seen by Provider: 02/20/25 15:03 Related Data Home Medications ?Medication ?Instructions ?Recorded ?Confirmed ?Last Taken ?Type ascorbic acid (vitamin C) 125 mg 125 mg PO DAILY 08/03/19 12/13/24 Unknown History chewable tablet cinnamon bark 500 mg capsule 1,000 mg PO BID 08/03/19 12/13/24 09/18/24 History (Cinnamon) esomeprazole magnesium 20 mg 20 mg PO DAILY 08/03/19 12/13/24 09/18/24 History capsule,delayed release (Nexium 24HR) echinacea 400 mg capsule 400 mg PO BID 01/19/20 12/13/24 09/18/24 History insulin glargine 100 unit/mL (3 15 unit subcut QPM 09/18/24 12/13/24 09/17/24 History mL) subcutaneous pen (Basaglar KwikPen U-100 Insulin) Allergies Allergy/AdvReac Type Severity Reaction Status Date / Time Sulfa (Sulfonamide Allergy Unknown Hives Verified 02/20/25 15:38 Antibiotics) FOR[facility] Past Medical History Medical History COVID Diabetes with retinopathy Hypertensive CKD (chronic kidney disease) Long-term insulin use Hypertension LUZ MARIA (obstructive sleep apnea) Afib Diabetes mellitus type 2, uncontrolled Hypothyroidism Transient cerebral ischemia Surgical History Surgical History Closed right hip fracture s/p ORIF Status post hysterectomy with oophorectomy Family History Family History Father Patient's father is Sibling Patient's brother is Social History Social History Social History: , lives alone, retired Smoking status: Never smoker Second hand tobacco smoke exposure: No Alcohol intake: never Substance use: never Substance use type: does not use Do You Feel Safe in your Home?: Yes Lack of Transportation: No Lack of Food: Never True Current Housing: I Have Housing Concerned About Future Housing: No Difficulty Paying Gas/Electric Bills: No Difficulty Paying for Meds: No Currently Unemployed: No Education: High School Diploma/GED Difficulty w/ Childcare or Family Care: No Living arrangements: with family Occupation/Education: occupation Additional occupation/education comments: worked at [employer] before retiring Gender identity (if verbalized by the patient): Female Sexual Orientation (if Verbalized by the Patient): Straight or Heterosexual Spiritual care concerns: No Course Course Emergency Course: ZYCH: Pt signed out pending non time critical t/f to [facility]. Patient has now been in the emergency department for 18 hours. She was re-evaluated. She has actually had improvement in her symptoms overnight. She still has some mild weakness to her right arm, right leg and decreased sensation in her right arm. Case was discussed with our hospitalist and neurologist. She will be admitted here for further stroke workup. Vital Signs Vital signs: Vital Signs Temperature 97.6 F 02/20/25 14:57 Pulse Rate 69 02/20/25 14:57 Respiratory Rate 17 02/20/25 14:57 Blood Pressure 189/89 H 02/20/25 14:57 Pulse Oximetry 94 02/20/25 14:57 Oxygen Delivery Room Air 02/20/25 14:57 Temperature 97.6 F 02/20/25 14:57 Pulse Rate 97 02/21/25 08:17 Respiratory Rate 20 02/21/25 08:10 Blood Pressure 198/90 H 02/21/25 08:10 Pulse Oximetry 98 02/21/25 08:10 Oxygen Delivery Room Air 02/20/25 14:57 Medical Decision Making Vital Signs Vital Signs: Vital Signs Temperature 97.6 F 02/20/25 14:57 Pulse Rate 69 02/20/25 14:57 Respiratory Rate 17 02/20/25 14:57 Blood Pressure 189/89 H 02/20/25 14:57 Pulse Oximetry 94 02/20/25 14:57 Oxygen Delivery Room Air 02/20/25 14:57 Temperature 97.6 F 02/20/25 14:57 Pulse Rate 97 02/21/25 08:17 Respiratory Rate 20 02/21/25 08:10 Blood Pressure 198/90 H 02/21/25 08:10 Pulse Oximetry 98 02/21/25 08:10 Oxygen Delivery Room Air 02/20/25 14:57 Lab Data 02/20/25 15:33 02/20/25 17:18 Labs: Lab Results 02/20/25 02/20/25 Range/Units 15:33 17:18 WBC 11.2 H (4.5-10.0) K/mm3 RBC 3.49 L (4.2-5.4) M/mm3 Hgb 10.2 L (12.0-15.0) g/dL Hct 32.9 L (37.0-47.0) % MCV 94.3 (80-100) fl MCH 29.2 (26-34) pg MCHC 31.0 L (32-36) g/dl RDW 13.1 (11.5-14.5) % Plt Count 202 (150-375) k/mm3 MPV 9.4 (7.4-10.4) fl Immature Gran % (Auto) 0.4 (0-0.5) % Neut % (Auto) 81.8 H (45.5-73.1) % Lymph % (Auto) 11.9 L (18.3-44.2) % [place] % (Auto) 4.6 (2.6-8.5) % Eos % (Auto) 0.9 (0-4.4) % Baso % (Auto) 0.4 (0.2-1.2) % Lymph # (Auto) 1.34 (0.9-3.2) K/mm3 [place] # (Auto) 0.5 (0.1-0.6) K/mm3 Eos # (Auto) 0.1 (0-0.3) K/mm3 Baso # (Auto) 0.1 (0.0-0.1) K/mm3 Abs Immat Gran (auto) 0.05 H (0.00-0.031) K/mm3 Absolute Neuts (auto) 9.2 H (1.3-6.7) K/mm3 Absolute Nucleated RBC 0.000 (0.0-0.012) K/mm3 Nucleated RBC % 0.0 (0.0-0.2) % Sodium 139 (137-145) mmol/L Potassium 3.7 (3.4-5.0) mmol/L Chloride 110 H (98-107) mmol/L Carbon Dioxide 19 L (22-30) mmol/L Anion Gap 10 (4-12) mmol/L BUN 29 H (7-17) mg/dL Creatinine 2.56 H (0.7-1.0) mg/dL Estim Creat Clear Calc 20 ml/min Estimated GFR 18 L (59 - ) Glucose 180 H (65-110) mg/dL Calcium 10.0 (8.4-10.2) mg/dL Magnesium 1.1 L (1.6-2.3) mg/dL Total Bilirubin 0.4 (0.2-1.3) mg/dL AST 31 (14-36) U/L ALT 23 (6-35) U/L Alkaline Phosphatase 141 H (38-126) U/L Troponin I < 0.012 (0.000-0.034) ng/mL Total Protein 7.1 (6.3-8.2) g/dL Albumin 4.0 (3.5-5.1) g/dL Discharge Plan Discharge Clinical Impression: Hypomagnesemia, Right sided weakness Patient Disposition: Acute Care Hospital Condition: Guarded Prognosis Patient Language: Bengali Prescriptions: No Action cinnamon bark [Cinnamon] 500 mg capsule 1,000 mg PO BID esomeprazole magnesium [Nexium 24HR] 20 mg capsule,delayed release(DR/EC) 20 mg PO DAILY ascorbic acid (vitamin C) 125 mg tablet,chewable 125 mg PO DAILY (DME) lancets Misc See Rx Instructions .ROUTE .MEDSUPPLY Qty: 100 2RF Rx Instructions: Use once daily to check blood sugar (DME) blood-glucose meter Misc See Rx Instructions .ROUTE .MEDSUPPLY Qty: 1 0RF Rx Instructions: As directed diltiazem HCl 120 mg capsule,extended release 24hr 120 mg PO DAILY Qty: 90 0RF furosemide 40 mg tablet 40 mg PO QAM Qty: 90 2RF insulin glargine [Basaglar KwikPen U-100 Insulin] 100 unit/mL (3 mL) insulin pen 15 unit subcut QPM Rx Instructions: ADMINISTER 20 UNITS UNDER THE SKIN EVERY EVENING echinacea 400 mg Capsule 400 mg PO BID (DME) OneTouch Ultra Test Strip See Rx Instructions .Route Qty: 100 11RF Rx Instructions: use to test once daily (DME) pen needle, diabetic [BD Ultra-Fine Orig Pen Needle] 29 gauge x 1/2 needle See Rx Instructions .ROUTE .MEDSUPPLY Qty: 100 3RF Rx Instructions: Inject daily levothyroxine 100 mcg tablet See Rx Instructions .ROUTE .COMPLEX Qty: 90 2RF Dose Instruction: TAKE 1 TABLET BY MOUTH DAILY Rx Instructions: TAKE 1 TABLET BY MOUTH DAILY ondansetron HCl 4 mg tablet 4 mg PO Q8H PRN (Reason: nausea and vomiting) Qty: 30 1RF amitriptyline 25 mg tablet 25 mg PO DAILY Qty: 90 3RF hydrocodone-acetaminophen 5-325 mg tablet 1 - 2 tablet PO Q6-8H PRN (Reason: pain) Qty: 30 0RF atorvastatin 10 mg tablet 10 mg PO DAILY Qty: 90 3RF Eliquis 5 mg tablet 5 mg PO BID Qty: 180 1RF glimepiride 1 mg tablet 2 mg PO QAM Qty: 180 1RF Rx Instructions: administer with breakfast metoprolol tartrate 50 mg tablet 50 mg PO BID Qty: 180 2RF Follow-up/Referrals: Maxime Henning MD [Primary Care Provider] -
--- NOTE | 2025-02-21 11:16 | ADMGEN ---
This patient, Yesica Marcial, was admitted to [facility] Surg Room 304-01. Patient/family oriented to hospital policies and general routines including ID bracelet, bed and alarms, visiting hours, pain management, procedures, bathroom and other care routines, personal items, smoking policy, room service/diet, and visiting hours. Information on how to activate the Rapid Response Team has been discussed. Patient/Family are encouraged to report perceived risks to care and to ask questions if they do not understand what they are told or what they should do.
--- NOTE | 2025-02-21 12:31 | P.HP_ITS ---
H&P: HPI History of Present Illness Date/Time: 02/21/25 12:31 Chief Complaint: CVA Narrative: A 74-year-old female with a past medical history of type 2 diabetes, CKD stage 4, hypertension, atrial fibrillation, and hypothyroidism presented to the ED due to symptoms of CVA. According to the patient, she underwent dental extraction on the upper right-sided teeth a few months ago without any complications. The pardeep funez was scheduled to have the right-sided bottom tooth extraction 4 weeks ago, but was unfortunately held due to high blood pressure. As per the patient, she was added to two new antihypertensive medications to her therapeutic regimen to control her blood pressure. Patient is currently on losartan, metoprolol, hydralazine, furosemide, and diltiazem. As per the belief, the new medication, which has been added, is possibly losartan and hydralazine. The patient underwent dental extraction of her right lower side teeth yesterday. Initially, her blood pressure was in the 150s, but during the procedure, she was given propofol 30mg, Versed 3 mg, and fentanyl 100 micrograms. Her blood pressure dropped to the 80s, and an ambulance was called. During the evaluation in the emergency department, the patient experienced a right-sided weakness in both arm and leg. Initial CT did not reveal any abnormal findings. The ED physician called [facility] for transfer, although the transfer was accepted; however, it is for a noncritical timeline. Patient was in the ED for more than 18 hours and was admitted under the care of a hospitalist for stroke workup and consulted Neurology for further recommendations. Ordered MRI, swallow study, carotid Doppler ultrasound, and echocardiogram with bubble stud.Antihypertensive medications have been held due to permissive hypertension. PRN Labetalol 10 mg IV p.r.n for blood pressure greater than 220/120. Of note, the patient has a history of atrial fibrillation for which she was managed with apixaban 5 mg p.o. b.i.d.. Patient has CKD and follows up with . Review of Systems Review of Systems: All systems reviewed & are unremarkable except as noted in HPI and below PMFSH Past Medical History Medical History COVID Diabetes with retinopathy Hypertensive CKD (chronic kidney disease) Long-term insulin use Hypertension LUZ MARIA (obstructive sleep apnea) Afib Diabetes mellitus type 2, uncontrolled Hypothyroidism Transient cerebral ischemia Surgical History Surgical History Closed right hip fracture s/p ORIF Status post hysterectomy with oophorectomy Family History Family History Father Patient's father is Sibling Patient's brother is Social History Social History Social History: , lives alone, retired Smoking status: Never smoker Second hand tobacco smoke exposure: No Alcohol intake: never Substance use: never Substance use type: does not use Do You Feel Safe in your Home?: Yes Lack of Transportation: No Lack of Food: Never True Current Housing: I Have Housing Concerned About Future Housing: No Difficulty Paying Gas/Electric Bills: No Difficulty Paying for Meds: No Currently Unemployed: No Education: High School Diploma/GED Difficulty w/ Childcare or Family Care: No Living arrangements: with family Occupation/Education: occupation Additional occupation/education comments: worked at [employer] before retiring Gender identity (if verbalized by the patient): Female Sexual Orientation (if Verbalized by the Patient): Straight or Heterosexual Spiritual care concerns: No Meds Home Medications and Allergies Home Medications ?Medication ?Instructions ?Recorded ?Confirmed ?Type cinnamon bark 500 mg capsule 2,500 mg PO BID 08/03/19 02/21/25 History (Cinnamon) esomeprazole magnesium 20 mg 20 mg PO DAILY 08/03/19 02/21/25 History capsule,delayed release (Nexium 24HR) echinacea 400 mg capsule 400 mg PO BID 01/19/20 02/21/25 History blood-glucose meter #1 ea 04/24/21 02/21/25 Rx lancets #100 ea 04/24/21 02/21/25 Rx diltiazem HCl 120 mg 120 mg PO DAILY #90 caps 04/15/22 02/21/25 Rx capsule,extended release 24 hr blood sugar diagnostic (OneTouch #100 ea 05/09/24 02/21/25 Rx Ultra Test strips) pen needle, diabetic 29 gauge x #100 ea 05/10/24 02/21/25 Rx 1/2 (BD Ultra-Fine Original Pen Needle) levothyroxine 100 mcg tablet See Rx Instructions .Route 06/12/24 02/21/25 Rx .COMPLEX #90 tabs ondansetron HCl 4 mg tablet 4 mg PO Q8H PRN nausea and 06/28/24 02/21/25 Rx vomiting #30 tabs amitriptyline 25 mg tablet 25 mg PO DAILY #90 tabs 07/27/24 02/21/25 Rx hydrocodone 5 mg-acetaminophen 325 1 - 2 tablet PO Q6-8H PRN pain #30 10/13/24 02/21/25 Rx mg tablet tabs atorvastatin 10 mg tablet 10 mg PO DAILY #90 tabs 11/23/24 02/21/25 Rx glimepiride 1 mg tablet 2 mg (2 x 1 mg) PO QAM #180 tabs 12/26/24 02/21/25 Rx amoxicillin 875 mg-potassium 1 tablet PO Q12H 02/21/25 02/21/25 History clavulanate 125 mg tablet apixaban 5 mg tablet (Eliquis) 5 mg PO .Q12HR 02/21/25 02/21/25 History furosemide 20 mg tablet 20 mg PO DAILY 02/21/25 02/21/25 History furosemide 40 mg tablet 40 mg PO QAM 02/21/25 02/21/25 History hydralazine 25 mg tablet 25 mg PO TID 02/21/25 02/21/25 History losartan 25 mg tablet 25 mg PO DAILY 02/21/25 02/21/25 History metoprolol tartrate 50 mg tablet 50 mg PO .Q12HR 02/21/25 02/21/25 History Allergies Allergy/AdvReac Type Severity Reaction Status Date / Time Sulfa (Sulfonamide Allergy Unknown Rash Verified 02/21/25 11:23 Antibiotics) Vital Signs Vital Signs - 24 hr 02/20/25 14:57 02/20/25 15:35 02/20/25 15:41 Temperature 97.6 F Pulse Rate 69 76 Respiratory Rate 17 18 17 Blood Pressure 189/89 H 180/107 H Pulse Oximetry 94 94 96 Oxygen Delivery Room Air 02/20/25 15:47 02/20/25 16:02 02/20/25 16:17 Temperature Pulse Rate 76 79 69 Respiratory Rate 15 25 H 16 Blood Pressure 179/85 H 198/88 H 198/88 H Pulse Oximetry 96 96 97 Oxygen Delivery 02/20/25 16:37 02/20/25 16:50 02/20/25 17:47 Temperature Pulse Rate 86 79 85 Respiratory Rate 13 13 13 Blood Pressure 202/92 H 173/105 H Pulse Oximetry 97 95 97 Oxygen Delivery 02/20/25 18:30 02/20/25 18:56 02/20/25 20:42 Temperature Pulse Rate 95 91 99 Respiratory Rate 20 16 14 Blood Pressure 194/96 H 194/96 H 234/113 H Pulse Oximetry 98 99 96 Oxygen Delivery 02/20/25 20:46 02/20/25 21:02 02/20/25 22:01 Temperature Pulse Rate 87 74 78 Respiratory Rate 15 13 15 Blood Pressure 246/108 H 188/94 H 196/118 H Pulse Oximetry 98 95 96 Oxygen Delivery 02/20/25 22:30 02/20/25 22:43 02/21/25 01:01 Temperature Pulse Rate 83 83 85 Respiratory Rate 14 14 15 Blood Pressure 196/118 H 225/102 H Pulse Oximetry 96 96 96 Oxygen Delivery 02/21/25 02:00 02/21/25 02:00 02/21/25 03:00 Temperature Pulse Rate 90 91 98 Respiratory Rate 15 16 16 Blood Pressure 185/98 H 198/105 H 204/109 H Pulse Oximetry 96 95 97 Oxygen Delivery 02/21/25 04:00 02/21/25 05:00 02/21/25 06:00 Temperature Pulse Rate 91 102 H 91 Respiratory Rate 16 18 16 Blood Pressure 198/105 H 206/105 H 219/99 H Pulse Oximetry 95 96 95 Oxygen Delivery 02/21/25 06:00 02/21/25 08:10 02/21/25 08:17 Temperature Pulse Rate 99 98 97 Respiratory Rate 17 20 Blood Pressure 219/99 H 198/90 H Pulse Oximetry 96 98 Oxygen Delivery 02/21/25 09:54 02/21/25 10:00 02/21/25 10:20 Temperature Pulse Rate 94 94 89 Respiratory Rate 20 20 17 Blood Pressure 199/99 H 199/99 H 193/88 H Pulse Oximetry 98 98 99 Oxygen Delivery 02/21/25 11:34 02/21/25 11:44 02/21/25 11:54 Temperature 96.9 F L Pulse Rate 90 97 Respiratory Rate 16 Blood Pressure 203/95 H Pulse Oximetry 97 Oxygen Delivery Room Air Exam Const: General: cooperative, no acute distress and obese Nutritional Appearance: obese Orientation/consciousness: patient oriented x3 Limitations: no limitations HENMT: Mouth: Yes other (sutures in place lower gums) Eyes: EOM: EOMs intact bilaterally Neck: Neck: no meningeal signs Resp: Effort & Inspection: normal respiratory effort and able to speak in complete sentences Auscultation: clear to auscultation bilaterally Cardio: Rate: regular rate Rhythm: regular rhythm GI: Inspection: normal to inspection Auscultation: normal bowel sounds Skin: General skin exam: normal color and turgor normal Other: diaphoretic Neuro: General: patient oriented x3, no meningeal signs, no focal motor deficits and CN's II-XI intact bilaterally Other: complaints of numbness and tingling all over but able to feel light touch Extrem: General: full ROM and no clubbing, cyanosis or edema Psych: Appearance: grossly normal Mental Status: mental status grossly normal Speech and movement: Normal speech and movement present Affect: normal affect Attitude: cooperative H&P: Results Labs Labs: Short CBC 02/20/25 Range/Units 15:33 WBC 11.2 H (4.5-10.0) K/mm3 Hgb 10.2 L (12.0-15.0) g/dL Hct 32.9 L (37.0-47.0) % Plt Count 202 (150-375) k/mm3 BMP 02/20/25 17:18 Sodium 139 Potassium 3.7 Chloride 110 H Carbon Dioxide 19 L BUN 29 H Creatinine 2.56 H Glucose 180 H Calcium 10.0 Cardiac Enzymes 02/20/25 Range/Units 17:18 Troponin I < 0.012 (0.000-0.034) ng/mL Liver Function 02/20/25 Range/Units 17:18 Total Bilirubin 0.4 (0.2-1.3) mg/dL AST 31 (14-36) U/L ALT 23 (6-35) U/L Alkaline Phosphatase 141 H (38-126) U/L Albumin 4.0 (3.5-5.1) g/dL Assessment and Plan Assessment and plan (1) CVA (cerebral vascular accident): Code(s): I63.9 - Cerebral infarction, unspecified Status: Acute Assessment and Plan: -MRI Brain: Pending -Carotid Doppler: Pending -CT Head : No acute intracranial hemorrhage or suspicious mass effect. Stable CT examination of the brain when compared to 09/18/2024. -NIHS 0 -Ordered echo with bubble study to rule out PFO -Ordered bedside swallow shows no evidence of aspiration -Continue atorvastatin 10 mg p.o. q.h.s. -Order lipid panel and HbA1c -if neurology recommends will add clopidogrel -neurology consulted awaiting recommendation -speech and swallow evaluation -PT/OT eval - not candidate for thrombolytics due to timeline (2) Afib: Code(s): I48.91 - Unspecified atrial fibrillation Status: Acute Assessment and Plan: Continue Eliquis Hold diltiazem (3) HLD (hyperlipidemia): Qualifiers: Hyperlipidemia type: mixed hyperlipidemia Qualified Code(s): E78.2 - Mixed hyperlipidemia Code(s): E78.5 - Hyperlipidemia, unspecified Status: Acute Assessment and Plan: Continue atorvastatin (4) Type 2 diabetes mellitus with stage 4 chronic kidney disease: Qualifiers: Diabetes mellitus senior living insulin use: with ocean transportation intermediary use Qualified Code(s): E11.22 - Type 2 diabetes mellitus with diabetic chronic kidney disease; N18.4 - Chronic kidney disease, stage 4 (severe); Z79.4 - senior care (current) use of insulin Code(s): E11.22 - Type 2 diabetes mellitus with diabetic chronic kidney disease; N18.4 - Chronic kidney disease, stage 4 (severe) Status: Acute Assessment and Plan: SSI Treated as needed Hypoglycemic protocol Hospitalist MIPS Advance Care Plan I have confirmed that the patient's Advanced Care Plan is present, code status is documented, or surrogate decision maker is listed in patient medical record.: Yes Medication Reconciliation I have utilized all available resources to obtain, update and review the patients current medications (includes all prescriptions, OTC, herbals, cannabis, and nutritional supplements).: Yes
[2025-02-21 13:40] LABS: Cholesterol 146 mg/dL (0-200); HDL Direct 51 mg/dL; Triglycerides 126 mg/dL (<150)
--- NOTE | 2025-02-21 13:40 | PCSTNOTE ---
Please refer to the Bedside Swallow Evaluation in the EMR. Please note, silent aspiration cannot be ruled out at bedside. The patient is a 74 year old female referred for a BSE secondary to onset of a new CVA with right side weakness following dental work. The patient still has some swelling on the right side of her mouth secondary to the initial dental work. The patient was positioned upright and provided the following consistencies, to self feed: 5 cc/tsp thin liquid, straw drinks thin liquid, pudding. The patient is unable to masticate hard solids at this time due to oral swelling and only upper dentition( as instructed by her dentist). Oral Mechanism Evaluation WFL's. Oral stage: Timely oral transit for all consistencies presented. Pharyngeal Stage: Timely swallow initiation for all consistencies without viewed clinical signs of aspiration. Did discuss with family a regular diet and thin liquids with selection of softer textures from the menu which the patient was able to do. As well as small bites and drinks due to dentition limitations.
[2025-02-21] MEDS: PERFLUTREN LIPID MICROSPHERES 1.5 ML VIAL DILUTED TO 10 ML TOTAL VOLUME IV PUSH (14:40)
--- NOTE | 2025-02-21 15:32 | IVDEFINITY ---
Prior to administration of IV Definity the patient was educated on the risks and benefits of the imaging enhancing agent including potential adverse side effects. The patient verbalized understanding. Allergies were verified. No exclusion criteria were identified and at least one of the following inclusion criteria were met: 1) physician request, 2) patient technically difficult to image (per the [employer] guidelines of two or more segments not discernable within the apical view), or 3) questionable left ventricular function. ?
[2025-02-21 17:43] LABS: Hemoglobin A1C 6.4 % (<5.7)
--- NOTE | 2025-02-21 17:47 | PC.NURSE ---
Telephone report given to [facility] RN.
--- NOTE | 2025-02-23 17:11 | PM.TDS ---
Transfer Discharge Sum: Prov Provider Date of admission: 02/21/25 09:14 Primary care physician: Maxime Henning MD Admitting clinician: Raul Villalta MD Consults: 02/21/25 09:15 Consult to Physician Routine Comment: Consulting Provider: Graham Maya Reason for consultation: R sided weakness Has provider been notified: Yes DS: Admitting Diagnosis Discharge Date 02/21/25 Admitting Diagnosis CVA Transfer Discharge Sum: Med Medications Active and Home Medications: Home Medications cinnamon bark 500 mg capsule (Cinnamon) 2,500 mg PO BID 08/03/19 [History Confirmed 02/21/25] esomeprazole magnesium 20 mg capsule,delayed release (Nexium 24HR) 20 mg PO DAILY 08/03/19 [History Confirmed 02/21/25] echinacea 400 mg capsule 400 mg PO BID 01/19/20 [History Confirmed 02/21/25] blood-glucose meter #1 ea 04/24/21 [Rx Confirmed 02/21/25] lancets #100 ea 04/24/21 [Rx Confirmed 02/21/25] diltiazem HCl 120 mg capsule,extended release 24 hr 120 mg PO DAILY #90 caps 04/15/22 [Rx Confirmed 02/21/25] blood sugar diagnostic (OneTouch Ultra Test strips) #100 ea 05/09/24 [Rx Confirmed 02/21/25] pen needle, diabetic 29 gauge x 1/2 (BD Ultra-Fine Original Pen Needle) #100 ea 05/10/24 [Rx Confirmed 02/21/25] levothyroxine 100 mcg tablet See Rx Instructions .Route .COMPLEX #90 tabs 06/12/24 [Rx Confirmed 02/21/25] ondansetron HCl 4 mg tablet 4 mg PO Q8H PRN nausea and vomiting #30 tabs 06/28/24 [Rx Confirmed 02/21/25] amitriptyline 25 mg tablet 25 mg PO DAILY #90 tabs 07/27/24 [Rx Confirmed 02/21/25] hydrocodone 5 mg-acetaminophen 325 mg tablet 1 - 2 tablet PO Q6-8H PRN pain #30 tabs 10/13/24 [Rx Confirmed 02/21/25] atorvastatin 10 mg tablet 10 mg PO DAILY #90 tabs 11/23/24 [Rx Confirmed 02/21/25] glimepiride 1 mg tablet 2 mg (2 x 1 mg) PO QAM #180 tabs 12/26/24 [Rx Confirmed 02/21/25] amoxicillin 875 mg-potassium clavulanate 125 mg tablet 1 tablet PO Q12H 02/21/25 [History Confirmed 02/21/25] apixaban 5 mg tablet (Eliquis) 5 mg PO .Q12HR 02/21/25 [History Confirmed 02/21/25] furosemide 20 mg tablet 20 mg PO DAILY 02/21/25 [History Confirmed 02/21/25] furosemide 40 mg tablet 40 mg PO QAM 02/21/25 [History Confirmed 02/21/25] hydralazine 25 mg tablet 25 mg PO TID 02/21/25 [History Confirmed 02/21/25] losartan 25 mg tablet 25 mg PO DAILY 02/21/25 [History Confirmed 02/21/25] metoprolol tartrate 50 mg tablet 50 mg PO .Q12HR 02/21/25 [History Confirmed 02/21/25] Transfer Discharge Sum: Hosp Hospital Course Hospital course: 74-year-old female with a past medical history of type 2 diabetes, CKD stage 4, hypertension, atrial fibrillation, and hypothyroidism presented to the ED due to symptoms of CVA. According to the patient, she underwent dental extraction on the upper right-sided teeth a few months ago without any complications. The patient was scheduled to have the right-sided bottom tooth extraction 4 weeks ago, but was unfortunately held due to high blood pressure. As per the patient, she was added to two new antihypertensive medications to her therapeutic regimen to control her blood pressure. Patient is currently on losartan, metoprolol, hydralazine, furosemide, and diltiazem. As per the belief, the new medication, which has been added, is possibly losartan and hydralazine. The patient underwent dental extraction of her right lower side teeth yesterday. Initially, her blood pressure was in the 150s, but during the procedure, she was given propofol 30mg, Versed 3 mg, and fentanyl 100 micrograms. Her blood pressure dropped to the 80s, and an ambulance was called. During the evaluation in the emergency department, the patient experienced a right-sided weakness in both arm and leg. Initial CT did not reveal any abnormal findings. The ED physician called [facility] for transfer, although the transfer was accepted; however, it is for a noncritical timeline. Patient was in the ED for more than 18 hours and was admitted under the care of a hospitalist for stroke workup and consulted Neurology for further recommendations. Ordered MRI, swallow study, carotid Doppler ultrasound, and echocardiogram with bubble stud.Antihypertensive medications have been held due to permissive hypertension. PRN Labetalol 10 mg IV p.r.n for blood pressure greater than 220/120. Of note, the patient has a history of atrial fibrillation for which she was managed with apixaban 5 mg p.o. b.i.d.. Patient has CKD and follows up with . Patient underwent MRI and other CVA workup but patient was transferred to [facility] for further management Patient Condition: Gaurded Prognosis Time Spent with Patient Time attestation: Total time spent providing and/or coordinating transfer services:
== END 2025-02-21 19:30 | disposition short-term general hospital (02) | DRG 65 ==
LOC: ANHED 18:57 → ANH3MEDSUR 02-21 10:03
PROVIDERS: Admitting Provider General Practice; Emergency Provider Emergency Medicine; PCP Family Medicine; Visit Provider General Practice
DX: I63.9 Cerebral infarction, unspecified (principal); G81.91 Hemiplegia, unspecified affecting right dominant side; N18.4 Chronic kidney disease, stage 4 (severe); I12.9 Hypertensive chronic kidney disease with stage 1 through stage 4 chronic kidney disease, or unspecified chronic kidney disease; E11.65 Type 2 diabetes mellitus with hyperglycemia; E11.319 Type 2 diabetes mellitus with unspecified diabetic retinopathy without macular edema; E11.22 Type 2 diabetes mellitus with diabetic chronic kidney disease; E03.9 Hypothyroidism, unspecified; G47.33 Obstructive sleep apnea (adult) (pediatric); I48.91 Unspecified atrial fibrillation; Z79.01 Long term (current) use of anticoagulants; Z79.4 Long term (current) use of insulin
CPT/HCPCS: 36415; 70450; 80053; 80061; 83036; 83735; 84484; 85025; 92610; 93005; 93880; 96361; 96365; 96375; 96376; 99285; C8929; J0360; J2270; J3475; J7030; Q9957

== ENCOUNTER 2025-03-31 12:42 | Inpatient (IN) | payer MEDICARE, SELFPAY ==
[2025-03-31] VITALS (45 sets, daily range): BP systolic 122–187; BP diastolic 65–112; PULSE 48–103; RESP 2–21; TEMP 36.6; O2SAT 96–100
--- NOTE | ~2025-03-31 | XR_ITS ---
EXAMINATION: XR chest 1V, 03/31/2025 15:25 CDT HISTORY: AMS COMPARISON: No comparisons available. Technique: Single view. Findings: The lungs are clear, no effusion. No pneumothorax. Heart is normal size. Mediastinal and hilar contours are within normal limits. Bony thorax no acute abnormality. Impression: No acute cardiopulmonary abnormality. Reviewed, dictated and finalized at location A. Impression: No acute cardiopulmonary abnormality.
--- NOTE | ~2025-03-31 | CT_ITS ---
EXAMINATION: CT brain wo kelly, 03/31/2025 15:00 CDT HISTORY: AMS COMPARISON: No comparisons available. Technique: Axial images obtained of the brain without contrast. One or more of the following dose reduction techniques were used: automated exposure control, adjustment of the mA and/or kV according to patient size, use of iterative reconstruction technique. Findings: No acute infarct or parenchymal hemorrhage. No abnormal mass or mass effect. No midline shift. No extra-axial fluid collections. No hydrocephalus. Mastoid air cells unremarkable. Sinuses and orbits unremarkable. No acute fracture. No significant facial or scalp soft tissue swelling evident. No radiopaque foreign body is seen. Impression: 1.No acute intracranial abnormality. Reviewed, dictated and finalized at location A. Impression: 1.No acute intracranial abnormality.
--- NOTE | 2025-03-31 14:34 | ECG_ITS ---
Test Date: 2025-03-31 16:41:25 Measurements Intervals Mccarr Rate: 50 P: 0 VA: 0 QRS: -22 QRSD: 83 T: 8 QT: 478 QTc: 436 Interpretive Statements ATRIAL FLUTTER/WITH SLOW VENTRICULAR RESPONSE CONSIDER PREVIOUS INFERIOR INFARCTION POOR R-WAVE PROGRESSION ABNORMAL ECG Compared to ECG 02/20/2025 15:24:16 HEART RATE IS FURTHER REDUCED Electronically Signed On 04-01-2025 08:18:42 CDT by Wilder Horvath M.D.
--- NOTE | 2025-03-31 14:46 | ED.NEUROSD ---
HPI - Neuro Symptoms/Deficit General Chief Complaint: Neuro Symptoms/Deficit <Cherelle Wisdom PA-C - Last Filed: 04/02/25 17:14> Stated Complaint: stroke like <Cherelle Wisdom PA-C - Last Filed: 04/02/25 17:14> Time Seen by Provider: 03/31/25 14:02 <Cherelle Wisdom PA-C - Last Filed: 04/02/25 17:14> Source: patient and family <Cherelle Wisdom PA-C - Last Filed: 04/02/25 17:14> Mode of arrival: EMS <Cherelle Wisdom PA-C - Last Filed: 04/02/25 17:14> Limitations: altered mental status <Cherelle Wisdom PA-C - Last Filed: 04/02/25 17:14> History of Present Illness HPI Narrative: This is a 75 year old female that presents to the ER for altered mental status. Patient presents from [facility] facility with confusion ongoing since this morning. Patient has been having word finding difficulties today. Was recently hospitalized at [facility] for a stroke. Patient denies any pain, focal weakness. <Cherelle Wisdom PA-C - Last Filed: 04/02/25 17:14> Related Data Home Medications: Home Medications ?Medication ?Instructions ?Recorded ?Confirmed ?Last Taken ?Type apixaban 5 mg tablet (Eliquis) 5 mg PO .Q12HR 02/21/25 04/01/25 03/28/25 09:10 History furosemide 20 mg tablet 20 mg PO .T,TH,S 02/21/25 04/01/25 02/20/25 History furosemide 40 mg tablet 40 mg PO .MWFS 02/21/25 04/01/25 03/28/25 09:10 History hydralazine 25 mg tablet 25 mg PO TID 02/21/25 04/01/25 03/28/25 12:55 History atorvastatin 10 mg tablet 10 mg PO QHS 03/28/25 04/01/25 03/27/25 20:55 History baclofen 5 mg tablet 5 mg PO TID 03/28/25 04/01/25 Unknown History carvedilol 12.5 mg tablet (Coreg) 12.5 mg PO BID 03/28/25 04/01/25 03/28/25 09:10 History cholecalciferol (vitamin D3) 25 25 mcg PO DAILY 03/28/25 04/01/25 Unknown History mcg (1,000 unit) capsule (Vitamin D3) folic acid 1 mg tablet 1 mg PO DAILY 03/28/25 04/01/25 03/28/25 09:10 History hydrocodone 5 mg-acetaminophen 325 1 tablet PO Q4H PRN pain 03/28/25 04/01/25 Unknown History mg tablet insulin aspart U-100 100 unit/mL 1 sliding scale dose subcut 03/28/25 04/01/25 03/27/25 18:10 History (3 mL) subcutaneous pen USEASDIRECTD melatonin 3 mg capsule 3 mg PO HS PRN sleep 03/28/25 04/01/25 03/23/25 History multivitamin 1 tablet PO DAILY 03/28/25 04/01/25 Unknown History polyethylene glycol 3350 17 17 g PO DAILY PRN constipation 03/28/25 04/01/25 Unknown History gram/dose oral powder (Miralax) sertraline 50 mg tablet 50 mg PO DAILY 03/28/25 04/01/25 03/28/25 09:10 History sevelamer carbonate 0.8 gram oral 0.8 g PO TID 03/28/25 04/01/25 03/28/25 12:50 History powder packet (Renvela) sodium bicarbonate 650 mg tablet 650 mg PO TID 03/28/25 04/01/25 03/28/25 12:50 History amitriptyline 25 mg tablet 25 mg PO HS 03/30/25 04/01/25 Unknown History glimepiride 1 mg tablet 2 mg PO DAILY 04/01/25 04/01/25 Unknown History losartan 25 mg tablet 25 mg PO DAILY 04/01/25 04/01/25 Unknown History metoprolol tartrate 50 mg tablet 50 mg PO BID 04/01/25 04/01/25 Unknown History <Cherelle Wisdom PA-C - Last Filed: 04/02/25 17:14> Allergies/Adverse Reactions: Allergies Allergy/AdvReac Type Severity Reaction Status Date / Time Sulfa (Sulfonamide Allergy Unknown Rash Verified 04/01/25 22:48 Antibiotics) <Cherelle Wisdom PA-C - Last Filed: 04/02/25 17:14> Review of Systems Review of Systems: ROS unobtainable: Yes unobtainable due to mental status <Cherelle Wisdom PA-C - Last Filed: 04/02/25 17:14> [facility] Past Medical History Medical History: Medical History Chronic kidney disease, unspecified Hypertension COVID Diabetes with retinopathy Hypertensive CKD (chronic kidney disease) Long-term insulin use LUZ MARIA (obstructive sleep apnea) Afib Diabetes mellitus type 2, uncontrolled Hypothyroidism Transient cerebral ischemia <Cherelle Wisdom PA-C - Last Filed: 04/02/25 17:14> Surgical History Surgical History: Surgical History Closed right hip fracture s/p ORIF Status post hysterectomy with oophorectomy <Cherelle Wisdom PA-C - Last Filed: 04/02/25 17:14> Family History Family History: Family History Father Patient's father is Myocardial infarct Cancer Sibling Patient's brother is Diabetes mellitus Cancer Sibling No problems noted. Mother Cancer <Cherelle Wisdom PA-C - Last Filed: 04/02/25 17:14> Social History Social History: Social History Social History: , lives alone, retired Smoking status: Never smoker Second hand tobacco smoke exposure: No Alcohol intake: never Substance use: never Substance use type: does not use Do You Feel Safe in your Home?: Yes Lack of Transportation: No Lack of Food: Never True Current Housing: I Have Housing Concerned About Future Housing: No Difficulty Paying Gas/Electric Bills: No Difficulty Paying for Meds: No Currently Unemployed: No Education: High School Diploma/GED Difficulty w/ Childcare or Family Care: No Living arrangements: with family Occupation/Education: occupation Additional occupation/education comments: worked at [employer] before retiring Gender identity (if verbalized by the patient): Female Sexual Orientation (if Verbalized by the Patient): Straight or Heterosexual Spiritual care concerns: No <Cherelle Wisdom PA-C - Last Filed: 04/02/25 17:14> Exam Narrative: GENERAL: Elderly, well-nourished, and in no acute distress. HEAD: Normocephalic, atraumatic. EYES: PERRLA and EOMI. ENT: Nares clear, no rhinorrhea or epistaxis. Mucous membranes moist. Oropharynx without tonsillar hypertrophy exudate or other lesions. Bilateral TMs pearly duncan non-bulging NECK: Supple. No adenopathy or masses. CHEST: Clear to auscultation. No respiratory distress. No wheezes rales or rhonchi HEART: Regular rate and rhythm. No murmur heard. Normal peripheral pulses. EXTREMITIES: Normal range of motion. No edema. Strength equal in bilateral upper and lower extremities (5/5) SKIN: Warm, dry, no rash. NEURO: No focal deficits. Alert and oriented x1. CN II-XII grossly intact PSYCH: Normal mood and affect <Cherelle Wisdom PA-C - Last Filed: 04/02/25 17:14> Course Course Emergency Course: Patient and family updated on workup and need for transfer for neurology evaluation <Cherelle Wisdom PA-C - Last Filed: 04/02/25 17:14> BEAM WORKER/PA Physician Supervision This visit was performed by both a physician and an APC; I performed all aspects of the medical decision making component of this evaluation as documented. Patient presenting with aphasia, not TPA candidate as she is on eliquis. Since she had recent stroke here at [facility] and we have no neurologist in house, she will be transferred back there. Accepted at [facility] under neurologist Dr León but no bed available at this time. I will order her daily medications. Patient signed out to oncoming ER physician. <Ana Cristina Smallwood MD - Last Filed: 04/01/25 20:24> Reevaluation(s) Reevaluation #1: On re-evaluation patient is still resting comfortably and did no distress. Patient denies any pain or complaints. Patient is still awake placement to [facility]. <Shahid Collier MD - Last Filed: 04/01/25 17:10> Reevaluation #2: Patient has now been in ER for 31 hr awaiting bed at [facility]. Our neurologist will be back information technology internship in the morning and since we still have no transfer bed available, d/w hospitalist to have her go upstairs at this time. Patient updated on plan; is happy to be out of the ER finally. Her aphasia has actually improved at this time. <Ana Cristina Smallwood MD - Last Filed: 04/01/25 20:24> Consultations Consultation #1: Spoke with Dr. León, [facility] neurology, about patient and workup who accepts patient as transfer. Patient will be awaiting bed placement <Cherelle Wisdom PA-C - Last Filed: 04/02/25 17:14> Date: 03/31/25 <Cherelle Widsom PA-C - Last Filed: 04/02/25 17:14> Vital Signs Vital signs: Vital Signs Pulse Rate 97 03/31/25 12:29 Respiratory Rate 20 03/31/25 12:29 Blood Pressure 156/67 H 03/31/25 12:29 Pulse Oximetry 100 03/31/25 12:29 Temperature 98.3 F 04/02/25 06:00 Pulse Rate 84 04/02/25 12:00 Respiratory Rate 12 04/02/25 06:00 Blood Pressure 120/53 L 04/02/25 06:00 Pulse Oximetry 100 04/02/25 06:00 Oxygen Delivery Room Air 04/02/25 12:08 <Cherelle Wisdom PA-C - Last Filed: 04/02/25 17:14> Vital Signs Pulse Rate 97 03/31/25 12:29 Respiratory Rate 20 03/31/25 12:29 Blood Pressure 156/67 H 03/31/25 12:29 Pulse Oximetry 100 03/31/25 12:29 Temperature 98.3 F 04/02/25 06:00 Pulse Rate 84 04/02/25 12:00 Respiratory Rate 12 04/02/25 06:00 Blood Pressure 120/53 L 04/02/25 06:00 Pulse Oximetry 100 04/02/25 06:00 Oxygen Delivery Room Air 04/02/25 12:08 <Ana Cristina Smallwood MD - Last Filed: 04/01/25 20:24> Vital Signs Pulse Rate 97 03/31/25 12:29 Respiratory Rate 20 03/31/25 12:29 Blood Pressure 156/67 H 03/31/25 12:29 Pulse Oximetry 100 03/31/25 12:29 Temperature 98.3 F 04/02/25 06:00 Pulse Rate 84 04/02/25 12:00 Respiratory Rate 12 04/02/25 06:00 Blood Pressure 120/53 L 04/02/25 06:00 Pulse Oximetry 100 04/02/25 06:00 Oxygen Delivery Room Air 04/02/25 12:08 <Shahid Collier MD - Last Filed: 04/01/25 17:10> MDM - Neuro Symptoms/Deficit MDM Narrative Medical decision making narrative: Patient presents to the emergency department for aphasia, ongoing since around 9 this morning. Patient was recently admitted to [facility] for a [facility]. Patient is afebrile nontoxic appearing. Her vitals are stable. She does not have any focal deficits. Cbc without leukocytosis. Hemoglobin is stable. Kidney function appears stable. Patient did have a urine done at rehab facility. This did show possible infection, patient has history of resistant organisms. Was started on meropenem. CT brain without acute findings. Chest x-ray without acute cardiopulmonary abnormality. Patient and family updated on workup and need for transfer for neurology evaluation. Spoke with Dr. León, [facility] neurology, about patient and workup who accepts patient as transfer. Patient will be awaiting bed placement <Cherelle Wisdom PA-C - Last Filed: 04/02/25 17:14> Differential Diagnosis Differential diagnosis: Likely delirium, cerebrovascular accident and transient cerebral ischemia <Cherelle Wisdom PA-C - Last Filed: 04/02/25 17:14> Lab Data Attestation: I reviewed the patient's lab results. <Cherelle Wisdom PA-C - Last Filed: 04/02/25 17:14> Result diagrams: 04/02/25 05:46 04/02/25 05:46 <BRAULIO Trejo Last Filed: 04/02/25 17:14> Labs: Lab Results 03/31/25 03/31/25 04/01/25 Range/Units 15:56 16:33 07:47 WBC 10.0 (4.5-10.0) K/mm3 RBC 3.09 L (4.2-5.4) M/mm3 Hgb 9.1 L (12.0-15.0) g/dL Hct 28.2 L (37.0-47.0) % MCV 91.3 (80-100) fl MCH 29.4 (26-34) pg MCHC 32.3 (32-36) g/dl RDW 12.9 (11.5-14.5) % Plt Count 274 (150-375) k/mm3 MPV 9.6 (7.4-10.4) fl Immature Gran % (Auto) 0.3 (0-0.5) % Neut % (Auto) 80.2 H (45.5-73.1) % Lymph % (Auto) 11.8 L (18.3-44.2) % [place] % (Auto) 5.7 (2.6-8.5) % Eos % (Auto) 1.6 (0-4.4) % Baso % (Auto) 0.4 (0.2-1.2) % Lymph # (Auto) 1.18 (0.9-3.2) K/mm3 [place] # (Auto) 0.6 (0.1-0.6) K/mm3 Eos # (Auto) 0.2 (0-0.3) K/mm3 Baso # (Auto) 0.0 (0.0-0.1) K/mm3 Abs Immat Gran (auto) 0.03 (0.00-0.031) K/mm3 Absolute Neuts (auto) 8.0 H (1.3-6.7) K/mm3 Absolute Nucleated RBC 0.000 (0.0-0.012) K/mm3 Nucleated RBC % 0.0 (0.0-0.2) % PT 22.5 H (11.1-14.7) Seconds INR 2.1 APTT 29.7 (22.3-36.8) Seconds Sodium 138 (137-145) mmol/L Potassium 4.7 (3.4-5.0) mmol/L Chloride 105 (98-107) mmol/L Carbon Dioxide 24 (22-30) mmol/L Anion Gap 9 (4-12) mmol/L BUN 48 H (7-17) mg/dL Creatinine 2.92 H (0.7-1.0) mg/dL Estim Creat Clear Calc 17 ml/min Estimated GFR 16 L (59 - ) Glucose 142 H (65-110) mg/dL POC Capillary Glucose 124 H 119 H (65-105) mg/dl Calcium 10.4 H (8.4-10.2) mg/dL Total Bilirubin 0.5 (0.2-1.3) mg/dL AST 35 (14-36) U/L ALT 21 (6-35) U/L Alkaline Phosphatase 120 (38-126) U/L Troponin I 0.018 (0.000-0.034) ng/mL Total Protein 7.2 (6.3-8.2) g/dL Albumin 3.9 (3.5-5.1) g/dL 04/01/25 04/01/25 Range/Units 12:54 17:09 WBC (4.5-10.0) K/mm3 RBC (4.2-5.4) M/mm3 Hgb (12.0-15.0) g/dL Hct (37.0-47.0) % MCV (80-100) fl MCH (26-34) pg MCHC (32-36) g/dl RDW (11.5-14.5) % Plt Count (150-375) k/mm3 MPV (7.4-10.4) fl Immature Gran % (Auto) (0-0.5) % Neut % (Auto) (45.5-73.1) % Lymph % (Auto) (18.3-44.2) % [place] % (Auto) (2.6-8.5) % Eos % (Auto) (0-4.4) % Baso % (Auto) (0.2-1.2) % Lymph # (Auto) (0.9-3.2) K/mm3 [place] # (Auto) (0.1-0.6) K/mm3 Eos # (Auto) (0-0.3) K/mm3 Baso # (Auto) (0.0-0.1) K/mm3 Abs Immat Gran (auto) (0.00-0.031) K/mm3 Absolute Neuts (auto) (1.3-6.7) K/mm3 Absolute Nucleated RBC (0.0-0.012) K/mm3 Nucleated RBC % (0.0-0.2) % PT (11.1-14.7) Seconds INR APTT (22.3-36.8) Seconds Sodium (137-145) mmol/L Potassium (3.4-5.0) mmol/L Chloride (98-107) mmol/L Carbon Dioxide (22-30) mmol/L Anion Gap (4-12) mmol/L BUN (7-17) mg/dL Creatinine (0.7-1.0) mg/dL Estim Creat Clear Calc ml/min Estimated GFR (59 - ) Glucose (65-110) mg/dL POC Capillary Glucose 132 H 163 H (65-105) mg/dl Calcium (8.4-10.2) mg/dL Total Bilirubin (0.2-1.3) mg/dL AST (14-36) U/L ALT (6-35) U/L Alkaline Phosphatase (38-126) U/L Troponin I (0.000-0.034) ng/mL Total Protein (6.3-8.2) g/dL Albumin (3.5-5.1) g/dL <Cherelle Wisdom PA-C - Last Filed: 04/02/25 17:14> Lab Results 03/31/25 03/31/25 04/01/25 Range/Units 15:56 16:33 07:47 WBC 10.0 (4.5-10.0) K/mm3 RBC 3.09 L (4.2-5.4) M/mm3 Hgb 9.1 L (12.0-15.0) g/dL Hct 28.2 L (37.0-47.0) % MCV 91.3 (80-100) fl MCH 29.4 (26-34) pg MCHC 32.3 (32-36) g/dl RDW 12.9 (11.5-14.5) % Plt Count 274 (150-375) k/mm3 MPV 9.6 (7.4-10.4) fl Immature Gran % (Auto) 0.3 (0-0.5) % Neut % (Auto) 80.2 H (45.5-73.1) % Lymph % (Auto) 11.8 L (18.3-44.2) % [place] % (Auto) 5.7 (2.6-8.5) % Eos % (Auto) 1.6 (0-4.4) % Baso % (Auto) 0.4 (0.2-1.2) % Lymph # (Auto) 1.18 (0.9-3.2) K/mm3 [place] # (Auto) 0.6 (0.1-0.6) K/mm3 Eos # (Auto) 0.2 (0-0.3) K/mm3 Baso # (Auto) 0.0 (0.0-0.1) K/mm3 Abs Immat Gran (auto) 0.03 (0.00-0.031) K/mm3 Absolute Neuts (auto) 8.0 H (1.3-6.7) K/mm3 Absolute Nucleated RBC 0.000 (0.0-0.012) K/mm3 Nucleated RBC % 0.0 (0.0-0.2) % PT 22.5 H (11.1-14.7) Seconds INR 2.1 APTT 29.7 (22.3-36.8) Seconds Sodium 138 (137-145) mmol/L Potassium 4.7 (3.4-5.0) mmol/L Chloride 105 (98-107) mmol/L Carbon Dioxide 24 (22-30) mmol/L Anion Gap 9 (4-12) mmol/L BUN 48 H (7-17) mg/dL Creatinine 2.92 H (0.7-1.0) mg/dL Estim Creat Clear Calc 17 ml/min Estimated GFR 16 L (59 - ) Glucose 142 H (65-110) mg/dL POC Capillary Glucose 124 H 119 H (65-105) mg/dl Calcium 10.4 H (8.4-10.2) mg/dL Total Bilirubin 0.5 (0.2-1.3) mg/dL AST 35 (14-36) U/L ALT 21 (6-35) U/L Alkaline Phosphatase 120 (38-126) U/L Troponin I 0.018 (0.000-0.034) ng/mL Total Protein 7.2 (6.3-8.2) g/dL Albumin 3.9 (3.5-5.1) g/dL 04/01/25 04/01/25 Range/Units 12:54 17:09 WBC (4.5-10.0) K/mm3 RBC (4.2-5.4) M/mm3 Hgb (12.0-15.0) g/dL Hct (37.0-47.0) % MCV (80-100) fl MCH (26-34) pg MCHC (32-36) g/dl RDW (11.5-14.5) % Plt Count (150-375) k/mm3 MPV (7.4-10.4) fl Immature Gran % (Auto) (0-0.5) % Neut % (Auto) (45.5-73.1) % Lymph % (Auto) (18.3-44.2) % [place] % (Auto) (2.6-8.5) % Eos % (Auto) (0-4.4) % Baso % (Auto) (0.2-1.2) % Lymph # (Auto) (0.9-3.2) K/mm3 [place] # (Auto) (0.1-0.6) K/mm3 Eos # (Auto) (0-0.3) K/mm3 Baso # (Auto) (0.0-0.1) K/mm3 Abs Immat Gran (auto) (0.00-0.031) K/mm3 Absolute Neuts (auto) (1.3-6.7) K/mm3 Absolute Nucleated RBC (0.0-0.012) K/mm3 Nucleated RBC % (0.0-0.2) % PT (11.1-14.7) Seconds INR APTT (22.3-36.8) Seconds Sodium (137-145) mmol/L Potassium (3.4-5.0) mmol/L Chloride (98-107) mmol/L Carbon Dioxide (22-30) mmol/L Anion Gap (4-12) mmol/L BUN (7-17) mg/dL Creatinine (0.7-1.0) mg/dL Estim Creat Clear Calc ml/min Estimated GFR (59 - ) Glucose (65-110) mg/dL POC Capillary Glucose 132 H 163 H (65-105) mg/dl Calcium (8.4-10.2) mg/dL Total Bilirubin (0.2-1.3) mg/dL AST (14-36) U/L ALT (6-35) U/L Alkaline Phosphatase (38-126) U/L Troponin I (0.000-0.034) ng/mL Total Protein (6.3-8.2) g/dL Albumin (3.5-5.1) g/dL <Ana Cristina Smallwood MD - Last Filed: 04/01/25 20:24> Lab Results 03/31/25 03/31/25 04/01/25 Range/Units 15:56 16:33 07:47 WBC 10.0 (4.5-10.0) K/mm3 RBC 3.09 L (4.2-5.4) M/mm3 Hgb 9.1 L (12.0-15.0) g/dL Hct 28.2 L (37.0-47.0) % MCV 91.3 (80-100) fl MCH 29.4 (26-34) pg MCHC 32.3 (32-36) g/dl RDW 12.9 (11.5-14.5) % Plt Count 274 (150-375) k/mm3 MPV 9.6 (7.4-10.4) fl Immature Gran % (Auto) 0.3 (0-0.5) % Neut % (Auto) 80.2 H (45.5-73.1) % Lymph % (Auto) 11.8 L (18.3-44.2) % [place] % (Auto) 5.7 (2.6-8.5) % Eos % (Auto) 1.6 (0-4.4) % Baso % (Auto) 0.4 (0.2-1.2) % Lymph # (Auto) 1.18 (0.9-3.2) K/mm3 [place] # (Auto) 0.6 (0.1-0.6) K/mm3 Eos # (Auto) 0.2 (0-0.3) K/mm3 Baso # (Auto) 0.0 (0.0-0.1) K/mm3 Abs Immat Gran (auto) 0.03 (0.00-0.031) K/mm3 Absolute Neuts (auto) 8.0 H (1.3-6.7) K/mm3 Absolute Nucleated RBC 0.000 (0.0-0.012) K/mm3 Nucleated RBC % 0.0 (0.0-0.2) % PT 22.5 H (11.1-14.7) Seconds INR 2.1 APTT 29.7 (22.3-36.8) Seconds Sodium 138 (137-145) mmol/L Potassium 4.7 (3.4-5.0) mmol/L Chloride 105 (98-107) mmol/L Carbon Dioxide 24 (22-30) mmol/L Anion Gap 9 (4-12) mmol/L BUN 48 H (7-17) mg/dL Creatinine 2.92 H (0.7-1.0) mg/dL Estim Creat Clear Calc 17 ml/min Estimated GFR 16 L (59 - ) Glucose 142 H (65-110) mg/dL POC Capillary Glucose 124 H 119 H (65-105) mg/dl Calcium 10.4 H (8.4-10.2) mg/dL Total Bilirubin 0.5 (0.2-1.3) mg/dL AST 35 (14-36) U/L ALT 21 (6-35) U/L Alkaline Phosphatase 120 (38-126) U/L Troponin I 0.018 (0.000-0.034) ng/mL Total Protein 7.2 (6.3-8.2) g/dL Albumin 3.9 (3.5-5.1) g/dL 04/01/25 04/01/25 Range/Units 12:54 17:09 WBC (4.5-10.0) K/mm3 RBC (4.2-5.4) M/mm3 Hgb (12.0-15.0) g/dL Hct (37.0-47.0) % MCV (80-100) fl MCH (26-34) pg MCHC (32-36) g/dl RDW (11.5-14.5) % Plt Count (150-375) k/mm3 MPV (7.4-10.4) fl Immature Gran % (Auto) (0-0.5) % Neut % (Auto) (45.5-73.1) % Lymph % (Auto) (18.3-44.2) % [place] % (Auto) (2.6-8.5) % Eos % (Auto) (0-4.4) % Baso % (Auto) (0.2-1.2) % Lymph # (Auto) (0.9-3.2) K/mm3 [place] # (Auto) (0.1-0.6) K/mm3 Eos # (Auto) (0-0.3) K/mm3 Baso # (Auto) (0.0-0.1) K/mm3 Abs Immat Gran (auto) (0.00-0.031) K/mm3 Absolute Neuts (auto) (1.3-6.7) K/mm3 Absolute Nucleated RBC (0.0-0.012) K/mm3 Nucleated RBC % (0.0-0.2) % PT (11.1-14.7) Seconds INR APTT (22.3-36.8) Seconds Sodium (137-145) mmol/L Potassium (3.4-5.0) mmol/L Chloride (98-107) mmol/L Carbon Dioxide (22-30) mmol/L Anion Gap (4-12) mmol/L BUN (7-17) mg/dL Creatinine (0.7-1.0) mg/dL Estim Creat Clear Calc ml/min Estimated GFR (59 - ) Glucose (65-110) mg/dL POC Capillary Glucose 132 H 163 H (65-105) mg/dl Calcium (8.4-10.2) mg/dL Total Bilirubin (0.2-1.3) mg/dL AST (14-36) U/L ALT (6-35) U/L Alkaline Phosphatase (38-126) U/L Troponin I (0.000-0.034) ng/mL Total Protein (6.3-8.2) g/dL Albumin (3.5-5.1) g/dL <Shahid Collier MD - Last Filed: 04/01/25 17:10> Imaging Data Radiologist's impression: ITS Impressions Head CT 03/31/25 15:21 Impression: 1.No acute intracranial abnormality. Chest X-Ray 03/31/25 15:59 Impression: No acute cardiopulmonary abnormality. <Cherelle Wisdom PA-C - Last Filed: 04/02/25 17:14> ECG Data EKG #1: ECG completion date: 03/31/25 <Cherelle Wisdom PA-C - Last Filed: 04/02/25 17:14> EKG Interpretation: atrial flutter (with slow ventricular response), no ST changes and normal QT <Cherelle Wisdom PA-C - Last Filed: 04/02/25 17:14> Critical Care Time Critical Care Time Critical Care Time: No <Cherelle McguireBraxton BRAULIO Wisdom - Last Filed: 04/02/25 17:14> Discharge Plan Discharge Clinical Impression: Aphasia <Cherelle Wisdom PA-C - Last Filed: 04/02/25 17:14> Patient Disposition: Acute Care Hospital <Cherelle Wisdom PA-C - Last Filed: 04/02/25 17:14> Condition: Serious <Cherelle Wisdom PA-C - Last Filed: 04/02/25 17:14> Quality Stroke Scale Stroke Scale 1: Stroke scale date:: 03/31/25 <Cherelle Wisdom PA-C - Last Filed: 04/02/25 17:14> 1a Level of consciousness: alert-0 <Cherelle Wisdom PA-C - Last Filed: 04/02/25 17:14> 1b Level of consciousness questions: answers none correctly-2 <Cherelle Wisdom PA-C - Last Filed: 04/02/25 17:14> 1c Level of consciousness commands: obeys both correctly-0 <Cherelle Wisdom PA-C - Last Filed: 04/02/25 17:14> 2 Best gaze: normal-0 <Cherelle Wisdom PA-C - Last Filed: 04/02/25 17:14> 3 Visual: no visual loss-0 <Cherelle Wisdom PA-C - Last Filed: 04/02/25 17:14> 4 Facial palsy: normal-0 <BRAULIO Trejo Last Filed: 04/02/25 17:14> 5a Motor: left arm: no drift-0 <BRAULIO Trejo Last Filed: 04/02/25 17:14> 5b Motor: right arm: no drift-0 <Cherelle Wisdom PA-C - Last Filed: 04/02/25 17:14> 6a Motor: left leg: no drift-0 <BRAULIO Trejo Last Filed: 04/02/25 17:14> 6b Motor: right leg: no drift-0 <Cherelle Wisdom PA-C - Last Filed: 04/02/25 17:14> 7 Limb ataxia: absent-0 <Cherelle Wisdom PA-C - Last Filed: 04/02/25 17:14> 8 Sensory: normal-0 <Cherelle Wisdom PA-C - Last Filed: 04/02/25 17:14> 9 Best language: some loss of fluency-1 <Cherelle Wisdom PA-C - Last Filed: 04/02/25 17:14> 10 Dysarthria: normal-0 <Cherelle Wisdom PA-C - Last Filed: 04/02/25 17:14> 11 Extinction and inattention: no abnormality-0 <Cherelle Wisdom PA-C - Last Filed: 04/02/25 17:14> Level:: 3 <Cherelle Wisdom PA-C - Last Filed: 04/02/25 17:14> 3 <Ana Cristina Smallwood MD - Last Filed: 04/01/25 20:24> 3 <Shahid Collier MD - Last Filed: 04/01/25 17:10>
[2025-03-31 16:01] LABS: Hematocrit 28.2 % (37.0-47.0); Hemoglobin 9.1 g/dL (12.0-15.0); Immature Granulocyte Percent A 0.3 % (0-0.5); Lymphocytes Absolute Auto 1.18 K/mm3 (0.9-3.2); Mean Corpuscular HGB Conc 32.3 g/dl (32-36); Mean Corpuscular Hemoglobin 29.4 pg (26-34); Mean Corpuscular Volume 91.3 fl (80-100); Nucleated Red Blood Cells Absolute Auto 0.000 K/mm3 (0.0-0.012); Nucleated Red Blood Cells Perc 0.0 % (0.0-0.2); Platelet Count Result 274 k/mm3 (150-375); Red Blood Count 3.09 M/mm3 (4.2-5.4); White Blood Count 10.0 K/mm3 (4.5-10.0)
[2025-03-31 16:25] LABS: Alanine Aminotransferase 21 U/L (6-35); Albumin Level 3.9 g/dL (3.5-5.1); Alkaline Phosphatase 120 U/L (38-126); Anion Gap 9 mmol/L (4-12); Aspartate Amino Transferase 35 U/L (14-36); Bilirubin,Total 0.5 mg/dL (0.2-1.3); Blood Urea Nitrogen 48 mg/dL (7-17); Calcium 10.4 mg/dL (8.4-10.2); Carbon Dioxide 24 mmol/L (22-30); Chloride 105 mmol/L (98-107); Estimated CRCL calculation 17 ml/min; Estimated Glomerular Filt Rate 16; Glucose 142 mg/dL (65-110); Potassium 4.7 mmol/L (3.4-5.0); Sodium 138 mmol/L (137-145); Total Protein 7.2 g/dL (6.3-8.2)
[2025-03-31 16:26] LABS: INR 2.1; Prothrombin Time 22.5 Seconds (11.1-14.7)
[2025-03-31 16:27] LABS: Partial Thromboplastin Time 29.7 Seconds (22.3-36.8)
[2025-03-31 16:29] LABS: Troponin I 0.018 ng/mL (0.000-0.034)
[2025-04-01] VITALS (15 sets, daily range): BP systolic 141–193; BP diastolic 63–85; PULSE 61–82; RESP 14–22; TEMP 36.6–36.9; O2SAT 97–100; BMI 30.9
[2025-04-01] MEDS: MEROPENEM 500 MG in SODIUM CHLORIDE 0.9% IV 100 ML 200 ML IVPB ×2 (02:47→14:12)
[2025-04-01] MEDS: dilTIAZem HCL CD 120 MG CAP.24HR PO (07:56)
[2025-04-01] MEDS: SERTRALINE HCL 50 MG TABLET PO (07:58)
[2025-04-01] MEDS: ATORVASTATIN 10 MG TABLET PO (07:58)
[2025-04-01] MEDS: METOPROLOL TARTRATE 50 MG TAB PO (08:10)
[2025-04-01] MEDS: SEVELAMER CARBONATE 0.8 GM ORAL POWDER PACKET PO ×3 (08:10→18:10)
[2025-04-01] MEDS: FUROSEMIDE 40 MG TABLET PO (08:56)
[2025-04-01] MEDS: APIXABAN 5 MG TABLET PO (20:40)
--- NOTE | 2025-04-01 22:15 | ADMGEN ---
This patient, Yesica Marcial, was admitted to [facility] Surg Room 332-02. Patient/family oriented to hospital policies and general routines including ID bracelet, bed and alarms, visiting hours, pain management, procedures, bathroom and other care routines, personal items, smoking policy, room service/diet, and visiting hours. Information on how to activate the Rapid Response Team has been discussed. Patient/Family are encouraged to report perceived risks to care and to ask questions if they do not understand what they are told or what they should do.
[2025-04-02] VITALS (7 sets, daily range): BP systolic 120–125; BP diastolic 52–53; PULSE 68–93; RESP 12–18; TEMP 35.9–36.8; O2SAT 99–100
--- NOTE | 2025-04-02 01:24 | PM.IMHP ---
H&P: HPI History of Present Illness Date/Time: 04/02/25 01:24 Chief Complaint: Aphasia Narrative: 75-year-old female with PMH hypertension, hyperlipidemia, diabetes, LUZ MARIA, urinary retention, constipation, CKD, atrial fibrillation, history of UTI, cervical myelopathy/spinal stenosis, recent CVA in 03/05. She was transferred from [facility] to [facility] and then discharged to [facility] in-situ. On 03/31/2025 the patient had aphasia so she was transferred back to [facility] ER. CT brain without contrast did not demonstrate any acute abnormality. She was accepted to [facility]. Review of Systems Review of Systems: All systems reviewed & are unremarkable except as noted in HPI and below (Subjective) [facility] Past Medical History Medical History (Updated 03/31/25 @ 19:12 by Cherelle Wisdom PA-C) Chronic kidney disease, unspecified Hypertension COVID Diabetes with retinopathy Hypertensive CKD (chronic kidney disease) Long-term insulin use LUZ MARIA (obstructive sleep apnea) Afib Diabetes mellitus type 2, uncontrolled Hypothyroidism Transient cerebral ischemia Surgical History Surgical History Closed right hip fracture s/p ORIF Status post hysterectomy with oophorectomy Family History Family History Father Patient's father is Myocardial infarct Cancer Sibling Patient's brother is Diabetes mellitus Cancer Sibling No problems noted. Mother Cancer Social History Social History Social History: , lives alone, retired Smoking status: Never smoker Second hand tobacco smoke exposure: No Alcohol intake: never Substance use: never Substance use type: does not use Do You Feel Safe in your Home?: Yes Lack of Transportation: No Lack of Food: Never True Current Housing: I Have Housing Concerned About Future Housing: No Difficulty Paying Gas/Electric Bills: No Difficulty Paying for Meds: No Currently Unemployed: No Education: High School Diploma/GED Difficulty w/ Childcare or Family Care: No Living arrangements: with family Occupation/Education: occupation Additional occupation/education comments: worked at [employer] in [place] before retiring Gender identity (if verbalized by the patient): Female Sexual Orientation (if Verbalized by the Patient): Straight or Heterosexual Spiritual care concerns: No Meds Home Medications and Allergies Home Medications ?Medication ?Instructions ?Recorded ?Confirmed ?Type blood-glucose meter #1 ea 04/24/21 04/01/25 Rx lancets #100 ea 04/24/21 04/01/25 Rx diltiazem HCl 120 mg 120 mg PO DAILY #90 caps 04/15/22 04/01/25 Rx capsule,extended release 24 hr blood sugar diagnostic (OneTouch #100 ea 05/09/24 04/01/25 Rx Ultra Test strips) pen needle, diabetic 29 gauge x #100 ea 05/10/24 04/01/25 Rx 1/2 (BD Ultra-Fine Original Pen Needle) apixaban 5 mg tablet (Eliquis) 5 mg PO .Q12HR 02/21/25 04/01/25 History furosemide 20 mg tablet 20 mg PO .T,TH,S 02/21/25 04/01/25 History furosemide 40 mg tablet 40 mg PO .MWFS 02/21/25 04/01/25 History hydralazine 25 mg tablet 25 mg PO TID 02/21/25 04/01/25 History levothyroxine 100 mcg tablet See Rx Instructions .Route 03/12/25 04/01/25 Rx .COMPLEX #90 tabs atorvastatin 10 mg tablet 10 mg PO QHS 03/28/25 04/01/25 History baclofen 5 mg tablet 5 mg PO TID 03/28/25 04/01/25 History carvedilol 12.5 mg tablet (Coreg) 12.5 mg PO BID 03/28/25 04/01/25 History cholecalciferol (vitamin D3) 25 25 mcg PO DAILY 03/28/25 04/01/25 History mcg (1,000 unit) capsule (Vitamin D3) folic acid 1 mg tablet 1 mg PO DAILY 03/28/25 04/01/25 History hydrocodone 5 mg-acetaminophen 325 1 tablet PO Q4H PRN pain 03/28/25 04/01/25 History mg tablet insulin aspart U-100 100 unit/mL 1 sliding scale dose subcut 03/28/25 04/01/25 History (3 mL) subcutaneous pen USEASDIRECTD melatonin 3 mg capsule 3 mg PO HS PRN sleep 03/28/25 04/01/25 History multivitamin 1 tablet PO DAILY 03/28/25 04/01/25 History polyethylene glycol 3350 17 17 g PO DAILY PRN constipation 03/28/25 04/01/25 History gram/dose oral powder (Miralax) sertraline 50 mg tablet 50 mg PO DAILY 03/28/25 04/01/25 History sevelamer carbonate 0.8 gram oral 0.8 g PO TID 03/28/25 04/01/25 History powder packet (Renvela) sodium bicarbonate 650 mg tablet 650 mg PO TID 03/28/25 04/01/25 History amitriptyline 25 mg tablet 25 mg PO HS 03/30/25 04/01/25 History glimepiride 1 mg tablet 2 mg PO DAILY 04/01/25 04/01/25 History losartan 25 mg tablet 25 mg PO DAILY 04/01/25 04/01/25 History metoprolol tartrate 50 mg tablet 50 mg PO BID 04/01/25 04/01/25 History Allergies Allergy/AdvReac Type Severity Reaction Status Date / Time Sulfa (Sulfonamide Allergy Unknown Rash Verified 04/01/25 22:48 Antibiotics) Vital Signs Vital Signs - 24 hr 04/01/25 07:37 04/01/25 07:49 04/01/25 07:55 Temperature 98.2 F Pulse Rate 81 72 82 Respiratory Rate 22 H 17 Blood Pressure 193/85 H 193/85 H Pulse Oximetry 97 97 Oxygen Delivery 04/01/25 08:10 04/01/25 11:26 04/01/25 11:30 Temperature Pulse Rate 79 69 72 Respiratory Rate 14 15 Blood Pressure 179/85 H 179/85 H Pulse Oximetry 99 98 Oxygen Delivery 04/01/25 13:22 04/01/25 14:22 04/01/25 15:26 Temperature Pulse Rate 68 63 61 Respiratory Rate 17 14 19 Blood Pressure 173/84 H 148/83 H 170/63 H Pulse Oximetry 98 98 100 Oxygen Delivery 04/01/25 16:18 04/01/25 18:26 04/01/25 20:41 Temperature 97.8 F Pulse Rate 61 67 70 Respiratory Rate 16 15 14 Blood Pressure 170/63 H 158/77 H 141/71 H Pulse Oximetry 99 97 100 Oxygen Delivery 04/01/25 20:41 04/01/25 21:28 04/01/25 22:46 Temperature 98.4 F Pulse Rate 70 73 66 Respiratory Rate 14 16 Blood Pressure 141/71 H 155/68 H Pulse Oximetry 97 Oxygen Delivery 04/01/25 22:50 04/02/25 00:00 Temperature Pulse Rate 66 68 Respiratory Rate 16 Blood Pressure Pulse Oximetry 97 Oxygen Delivery Room Air Exam Const: General: comfortable and no acute distress Other: A&O x3 HENMT: Mouth: Yes moist mucous membranes Eyes: Pupils: Equal, round and reactive pupils present Neck: Neck: supple Resp: Effort & Inspection: normal respiratory effort Auscultation: clear to auscultation bilaterally Cardio: Rate: regular rate Rhythm: regular rhythm GI: Inspection: non-distended GI Palp: Yes Soft to palpation Neuro: Motor exam (neuro): 5/5 motor strength present throughout Other: NIH stroke scale 1 due to mild aphasia. Occasional word salad. Extrem: General: no edema Assessment and Plan Assessment and plan (1) Aphasia: Code(s): R47.01 - Aphasia Status: Acute (2) UTI (urinary tract infection): Code(s): N39.0 - Urinary tract infection, site not specified Status: Acute Plan 75-year-old female with PMH hypertension, hyperlipidemia, diabetes, LUZ MARIA, urinary retention, constipation, CKD, atrial fibrillation, history of UTI, cervical myelopathy/spinal stenosis, recent CVA in 03/05. She was transferred from [facility] to [facility] and then [facility]. On 03/31/2025 the patient had aphasia so she was transferred back to [facility] ER. CT brain without contrast did not demonstrate any acute abnormality. She was accepted to [facility]. ----- Her aphasia slightly improved. CT without acute findings. Does not want contrast due to kidney insufficiency, agree with her. Patient has continued to be on wait list for [facility]. Not a candidate for thrombolysis since she has an anticoagulation Since Neurology returns on 04/02/2025 in the a.m. she will be admitted to medical floor telemetry for further monitoring. MRI has been ordered. She was apparently discharged on Eliquis only and the [facility] [place] documentation reports a brain MRI was done and showed a small left acute lacunar infarct. Unable to review [facility] records otherwise. The patient is amenable to starting aspirin in addition to Eliquis. The risk versus benefits were discussed. Increase atorvastatin from 10 mg to 80 mg p.o. q.day. otherwise, appreciate Neurology recommendations. Meropenem has been started for UTI. Continue, follow urine culture. No evidence of sepsis or shock. NPO. Speech therapy, PT/OT. Fall precautions, ambulate with assistance. Pepcid. Accu-Cheks q.6 hours with hypoglycemia protocol. Will hold antihypertensives since she is on lower side. She is NPO as well. Hospitalist MIPS Advance Care Plan I have confirmed that the patient's Advanced Care Plan is present, code status is documented, or surrogate decision maker is listed in patient medical record.: Yes Medication Reconciliation I have utilized all available resources to obtain, update and review the patients current medications (includes all prescriptions, OTC, herbals, cannabis, and nutritional supplements).: Yes
[2025-04-02] MEDS: ASPIRIN 81 MG ENTERIC TABLET PO (01:38)
[2025-04-02] MEDS: MEROPENEM 500 MG in SODIUM CHLORIDE 0.9% IV 100 ML 200 ML IVPB (01:39)
[2025-04-02] MEDS: LEVOTHYROXINE SODIUM 100 MCG TABLET PO (05:31)
[2025-04-02 06:38] LABS: Hematocrit 27.4 % (37.0-47.0); Hemoglobin 8.6 g/dL (12.0-15.0); Immature Granulocyte Percent A 0.7 % (0-0.5); Lymphocytes Absolute Auto 1.68 K/mm3 (0.9-3.2); Mean Corpuscular HGB Conc 31.4 g/dl (32-36); Mean Corpuscular Hemoglobin 29.4 pg (26-34); Mean Corpuscular Volume 93.5 fl (80-100); Nucleated Red Blood Cells Absolute Auto 0.000 K/mm3 (0.0-0.012); Nucleated Red Blood Cells Perc 0.0 % (0.0-0.2); Platelet Count Result 271 k/mm3 (150-375); Red Blood Count 2.93 M/mm3 (4.2-5.4); White Blood Count 11.1 K/mm3 (4.5-10.0)
[2025-04-02 07:22] LABS: Anion Gap 10 mmol/L (4-12); Blood Urea Nitrogen 43 mg/dL (7-17); Calcium 10.5 mg/dL (8.4-10.2); Carbon Dioxide 22 mmol/L (22-30); Chloride 107 mmol/L (98-107); Estimated CRCL calculation 17 ml/min; Estimated Glomerular Filt Rate 17; Glucose 102 mg/dL (65-110); Magnesium 1.7 mg/dL (1.6-2.3); Potassium 4.6 mmol/L (3.4-5.0); Sodium 139 mmol/L (137-145)
--- NOTE | 2025-04-02 08:26 | P.PNIM_ITS ---
Progress Note: A&P Assessment and Plan (1) UTI (urinary tract infection): Code(s): N39.0 - Urinary tract infection, site not specified Status: Acute Plan Yesica Marcial is a 75 year old female hx LUZ MARIA, Diabetes, CKD, Afib, UTI, recent spinal fusion C3-7 02/28/25 at [facility] and CVA 03/05 who was transferred to [facility] from rehab for aphasia and altered mental status Altered Mental status Delirium Hx CVA 03/05 Neurology consulted Delirium precautions 04/02 Neurology consulted, started Depakote and trialing a benzodiazepine. Discussed possiblity of LP with daughter, but family hesitant to stop AC with prior stroke off AC so can consider heparin drip or Lovenox after transfer. An EEG was done prior to transfer, on 04/02. Results pending. Patient talking to Donis during the EEG and making odd comments such as I'm in the toes, I'm in the toes. lighten my path No tremors or clear seizure activity. Hx Seizures Started Valproate UTI UA positive. Initially started on Meropenem empirically given hx of ESBL. No evidence of sepsis so changed to Ceftriaxone since interaction with Valproate that was started by neurology 04/02. No evidence of systemic infection. If Meropenem needed, will need to monitor Valproate levels closely. Urine culture pending at discharge Hx CVA 03/05 Neurology consulted Afib Rate controlled --continued metoprolol & apixaban (was also on carvedilol per rehab notes but did not give both). Can switch metoprolol to carvedilol if better control of blood pressure needed --Can consider switching from eliquis to heparin drip for possible lumbar puncture after transfer. Creatinine clearance 17 NPO. Speech therapy, PT/OT. Fall precautions, ambulate with assistance. Pepcid. Accu-Cheks q.6 hours with hypoglycemia protocol. Will hold antihypertensives since she is on lower side. She is NPO as well. Time Spent With Patient Time: 59 minutes Subjective Date/time seen: 04/02/25 08:26 Interval history: Speech recommended pureed diet Reason for hospitalization 75 y/o female hx LUZ MARIA, CKD, afib, CVA 03/05, who [facility] Neurology consulted. Having hallucinations. UA positive 4+ bacteria. S/p 1 dose of meropenem. Changed to ceftiraxone pending cultures since VSS, afebrile, and normal WBC. Pending transfer to [facility] Review of Systems Review of Systems: All systems reviewed & are unremarkable except as noted in HPI and below (Subjective) Exam Narrative: General - Awake and confused Eyes - PERRLA, EOM intact ENT - No thrush, No erythema Neck - No noticeable or palpable swelling Lymph Nodes - No lymphadenopathy Cardiovascular - RRR no m/r/g, no JVD Lungs: Clear to auscultation, No wheezing, use of accessory muscles, no crackles or wheezes. Skin - Skin warm and dry, no wounds or rashes Abdomen - Normal bowel sounds, abdomen soft and nontender Extremities - No edema, cyanosis or clubbing Musculoskeletal - 5/5 strength, normal range of motion, no swollen or erythematous joints. Neurological ? Alert and oriented x 1, CN 2-12 grossly intact. Psych: Normal mood and affect Objective Data Vital Signs Vital Signs: Vital Signs - 24 hr 04/01/25 11:26 04/01/25 11:30 04/01/25 13:22 Temperature Pulse Rate 69 72 68 Respiratory Rate 14 15 17 Blood Pressure 179/85 H 179/85 H 173/84 H Pulse Oximetry 99 98 98 Oxygen Delivery 04/01/25 14:22 04/01/25 15:26 04/01/25 16:18 Temperature Pulse Rate 63 61 61 Respiratory Rate 14 19 16 Blood Pressure 148/83 H 170/63 H 170/63 H Pulse Oximetry 98 100 99 Oxygen Delivery 04/01/25 18:26 04/01/25 20:41 04/01/25 20:41 Temperature 97.8 F Pulse Rate 67 70 70 Respiratory Rate 15 14 14 Blood Pressure 158/77 H 141/71 H 141/71 H Pulse Oximetry 97 100 Oxygen Delivery 04/01/25 21:28 04/01/25 22:46 04/01/25 22:50 Temperature 98.4 F Pulse Rate 73 66 66 Respiratory Rate 16 16 Blood Pressure 155/68 H Pulse Oximetry 97 97 Oxygen Delivery Room Air 04/02/25 00:00 04/02/25 04:00 04/02/25 06:00 Temperature 98.3 F Pulse Rate 68 76 93 Respiratory Rate 12 Blood Pressure 120/53 L Pulse Oximetry 100 Oxygen Delivery Intake/Output Intake/Output: Intake & Output 03/30/25 03/31/25 04/01/25 04/02/25 23:59 23:59 23:59 23:59 Intake Total 200 100 Balance 200 100 Meds/Results Medications: Active Medications Generic Name Dose Route Start Last Admin Trade Name Freq PRN Reason Stop Dose Admin Apixaban 5 mg 04/02/25 09:00 Apixaban 5 Mg Tablet PO Q12HR THOMPSON Aspirin 81 mg 04/02/25 01:25 04/02/25 01:38 Aspirin 81 Mg Enteric Tablet PO 81 mg QAM THOMPSON Administration Atorvastatin Calcium 80 mg 04/02/25 09:00 Atorvastatin 40 Mg Tablet PO DAILY THOMPSON Carvedilol 12.5 mg 04/01/25 09:00 04/01/25 21:28 Carvedilol 12.5 Mg Tablet PO 12.5 mg On Hold: 04/02/25 01:21 Q12HR THOMPSON Administration Dextrose 12.5 gm 04/01/25 06:48 Dextrose 50% 25 Gm/50 Ml Syringe IV PUSH PRN PRN Hypoglycemia Protocol Diltiazem HCl 120 mg 04/01/25 09:00 04/01/25 07:56 Diltiazem Hcl Cd 120 Mg Cap.24hr PO 120 mg On Hold: 04/02/25 01:21 QAM THOMPSON Administration Famotidine 20 mg 04/02/25 09:00 Famotidine 20 Mg/2 Ml Vial IV PUSH Q12HR THOMPSON Furosemide 40 mg 04/01/25 09:00 04/01/25 08:56 Furosemide 40 Mg Tablet PO 40 mg On Hold: 04/02/25 01:21 QAM THOMPSON Administration Glucagon 1 mg 04/01/25 06:48 Glucagon For Inj 1 Mg Vial IM PRN PRN Hypoglycemia Protocol Glucose 15 gm 04/01/25 06:48 Glucose Oral Gel 15 Gm Of Glucse In 37.5 Gm Tube PO PRN PRN Hypoglycemia Protocol Hydralazine HCl 25 mg 04/01/25 09:00 04/01/25 18:10 Hydralazine Hcl 25 Mg Tablet PO 25 mg On Hold: 04/02/25 01:21 TID THOMPSON Administration Meropenem 500 mg/ Sodium 100 mls @ 200 mls/hr 04/01/25 02:00 04/02/25 02:09 Chloride IVPB Infused Q12H THOMPSON Infusion Dextrose 1,000 mls @ 100 mls/hr 04/01/25 06:48 Dextrose 5% 1,000 Ml IVPB PRN PRN Hypoglycemia Protocol Insulin Aspart 3 - 6 units 04/01/25 08:00 04/01/25 17:35 Insulin Aspart (*Bkc) 100 Units/Ml SUB-Q Not Given TIDWM THOMPSON Protocol Insulin Aspart 1 - 3 units 04/01/25 21:00 04/01/25 21:20 Insulin Aspart (*Bkc) 100 Units/Ml SUB-Q Not Given HS THOMPSON Protocol Levothyroxine Sodium 100 mcg 04/02/25 06:30 04/02/25 05:31 Levothyroxine Sodium 100 Mcg Tablet PO 100 mcg DAILY@0630 THOMPSON Administration Sertraline HCl 50 mg 04/01/25 09:00 04/01/25 07:58 Sertraline Hcl 50 Mg Tablet PO 50 mg QAM THOMPSON Administration Sevelamer Carbonate 0.8 gm 04/01/25 08:00 04/01/25 18:10 Sevelamer Carbonate 0.8 Gm Oral Powder Packet PO 0.8 gm TIDWM THOMPSON Administration Radiology Results: ITS Impressions Head CT 03/31/25 15:21 Impression: 1.No acute intracranial abnormality. Chest X-Ray 03/31/25 15:59 Impression: No acute cardiopulmonary abnormality. Labs Labs: Laboratory Results - last 24 hr 04/01/25 04/01/25 04/01/25 12:54 17:09 21:18 WBC RBC Hgb Hct MCV MCH MCHC RDW Plt Count MPV Immature Gran % (Auto) Neut % (Auto) Lymph % (Auto) [place] % (Auto) Eos % (Auto) Baso % (Auto) Lymph # (Auto) [place] # (Auto) Eos # (Auto) Baso # (Auto) Abs Immat Gran (auto) Absolute Neuts (auto) Absolute Nucleated RBC Nucleated RBC % Sodium Potassium Chloride Carbon Dioxide Anion Gap BUN Creatinine Estim Creat Clear Calc Estimated GFR Glucose POC Capillary Glucose 132 H 163 H 101 Calcium Magnesium 04/02/25 05:46 WBC 11.1 H RBC 2.93 L Hgb 8.6 L Hct 27.4 L MCV 93.5 MCH 29.4 MCHC 31.4 L RDW 13.0 Plt Count 271 MPV 9.8 Immature Gran % (Auto) 0.7 H Neut % (Auto) 72.3 Lymph % (Auto) 15.2 L [place] % (Auto) 7.9 Eos % (Auto) 3.4 Baso % (Auto) 0.5 Lymph # (Auto) 1.68 [place] # (Auto) 0.9 H Eos # (Auto) 0.4 H Baso # (Auto) 0.1 Abs Immat Gran (auto) 0.08 H Absolute Neuts (auto) 8.0 H Absolute Nucleated RBC 0.000 Nucleated RBC % 0.0 Sodium 139 Potassium 4.6 Chloride 107 Carbon Dioxide 22 Anion Gap 10 BUN 43 H Creatinine 2.74 H Estim Creat Clear Calc 17 Estimated GFR 17 L Glucose 102 POC Capillary Glucose Calcium 10.5 H Magnesium 1.7 Quality VTE Prophylaxis VTE prophylaxis: pharmacologic ordered Hospitalist MIPS Advance Care Plan I have confirmed that the patient's Advanced Care Plan is present, code status is documented, or surrogate decision maker is listed in patient medical record.: Yes Medication Reconciliation I have utilized all available resources to obtain, update and review the patients current medications (includes all prescriptions, OTC, herbals, cannabis, and nutritional supplements).: Yes
--- NOTE | 2025-04-02 08:40 | PCSTNOTE ---
Please refer to the Bedside Swallow Evaluation in the EMR. Please note, silent aspiration cannot be ruled out at bedside. The patient is 75 year old female with a admission of AMS and aphasia. Orders received to complete a BSE and r/o aspiration risk. The patient was positioned upright and is very verbose, distractible and anxious but able to redirect to complete the swallow evaluation. the patient has only upper dentition and was administered the following consistencies: 5cc/tsp thin, straw drinks thin (sequential), puree/pudding, cracker/solid. Oral Stage: Timely oral preparation for all consistencies except solid/cracker unable to effectively masticate and expectorated the bolus. Pharyngeal Stage: When presented pudding and thin liquid trials swallow initiation was completed in a timely manner without viewed clinical signs of aspiration. Recommend 1. Puree Diet / Level 4, 2. Thin Liquid / Level 0 3. Eat upright and when alert 4. Speech services to follow and advance as tolerated and if dentures present for mastication. Also recommend Speech Communication Evaluation.
--- NOTE | 2025-04-02 11:35 | PCSTNOTE ---
ST Communication Evaluation attempted on this date at 11:15. Patient appears to be in distress and unable to follow commands. Patient is only orientated towards self. ST communicated with patient's daughter who was present and bedside RN, Queta. RN reports waiting neurology consult to discuss changing medications to aid with AMS. Patient's daughter states they are awaiting an opening at [facility].
--- NOTE | 2025-04-02 12:18 | WPDNEURCNPN ---
Assessment and Plan Assessment and plan (1) AMS (altered mental status): Code(s): R41.82 - Altered mental status, unspecified Status: Acute (2) Cervical cord compression with myelopathy: Code(s): G95.20 - Unspecified cord compression Status: Acute Assessment and Plan: As noted above she has had a surgery on cervical spine and 02/28/2025 at [facility]. She had a spinal fusion done from C3-C7. 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 She has a urinary tract infection with ESBL and she is on meropenem. In addition she also has had an acute CVA identified on MRI of the brain performed at [facility] prior to transfer to rehab. S partial complex seizures postictal state or encephalitis or drug-induced side effects were considered in the differential diagnosis. It is difficult to make a definitive diagnosis based upon the current presentation. She appears to be delirious. I discussed with her daughter and would suggest try benzodiazepine and Depakote to see if she improves and then try to do MRI of the brain. Spinal tap would be desirable however she is on Eliquis and we need to check with the radiologist how long we need to stop Eliquis. The daughter states that when she Eliquis start for the cervical spine surgery she had a stroke on the left side and she is afraid stop this medication. Clearly the patient has multiple medical problems which poses a challenge in her management. In terms of cer in IV formulation 250 mg q.6 hourly. I will go ahead and order an EEG also although I would feel that at this time she is not able going to cooperate for either EEG or MRI until she comes down. Close follow-up is recommended. Consult date: 04/02/25 HPI: Yesica Marcial is a 75 year old female with history of multiple problems brought into the hospital due to aphasia however at this time she is continuously talking and appears to be very confused. Her daughter was present at the time of the evaluation. The patient is a throwing her legs in the air and is continuously hallucinating. At times he seems like she is doing echolalia appears everything with say. It was noted that she was thought to have urinary tract infection and she is already started on 2nd round of meropenem she also history of atrial fibrillation for many years and has been on Eliquis. History of chronic kidney disease and diabetes mellitus. She was having some dental procedure done on 02/20/2025 but a blood pressure suddenly dropped to 80 systolic. She became weak on the right side and she was taken to [facility]. After investigations she was found to have cervical myelopathy and she underwent a cervical spine surgery with fusion from C3-C7 on 02/28/2025. Subsequently she also was found to have acute CVA. Is transferred to [facility] on 03/31/2025. Since he presented with speech difficulties she is evaluated in the emergency room and was referred to [facility] for management of stroke and was accepted however they do not have any bed and hence he is waiting. I noted that she has own Eliquis and aspirin and Lipitor 80 mg a day according to her daughter 1 time she became confused just like she is today when she was in [facility] no definite reason for that could be established. She had echocardiogram done on 03/10/2025 oral found to have ejection fraction of 65-70%. A carotid duplex scanning shows 50-69% narrowing of the left internal carotid artery with moderate degree of plaquing noted at the bifurcation. There is also less than 50% narrowing of the right side. She has had a fracture of the right arm in September 2024. She does not have any weakness of the either side however she is very confused. Review of Systems Review of Systems: ROS unobtainable: Yes unobtainable due to mental status PMFSH Past Medical History Medical History Chronic kidney disease, unspecified Hypertension COVID Diabetes with retinopathy Hypertensive CKD (chronic kidney disease) Long-term insulin use LUZ MARIA (obstructive sleep apnea) Afib Diabetes mellitus type 2, uncontrolled Hypothyroidism Transient cerebral ischemia Surgical History Surgical History Closed right hip fracture s/p ORIF Status post hysterectomy with oophorectomy Family History Family History Father Patient's father is Myocardial infarct Cancer Sibling Patient's brother is Diabetes mellitus Cancer Sibling No problems noted. Mother Cancer Social History Social History Social History: , lives alone, retired Smoking status: Never smoker Second hand tobacco smoke exposure: No Alcohol intake: never Substance use: never Substance use type: does not use Do You Feel Safe in your Home?: Yes Lack of Transportation: No Lack of Food: Never True Current Housing: I Have Housing Concerned About Future Housing: No Difficulty Paying Gas/Electric Bills: No Difficulty Paying for Meds: No Currently Unemployed: No Education: High School Diploma/GED Difficulty w/ Childcare or Family Care: No Living arrangements: with family Occupation/Education: occupation Additional occupation/education comments: worked at [employer] before retiring Gender identity (if verbalized by the patient): Female Sexual Orientation (if Verbalized by the Patient): Straight or Heterosexual Spiritual care concerns: No Meds Home Medications and Allergies Home Medications ?Medication ?Instructions ?Recorded ?Confirmed ?Type blood-glucose meter #1 ea 04/24/21 04/01/25 Rx lancets #100 ea 04/24/21 04/01/25 Rx diltiazem HCl 120 mg 120 mg PO DAILY #90 caps 04/15/22 04/01/25 Rx capsule,extended release 24 hr blood sugar diagnostic (OneTouch #100 ea 05/09/24 04/01/25 Rx Ultra Test strips) pen needle, diabetic 29 gauge x #100 ea 05/10/24 04/01/25 Rx 1/2 (BD Ultra-Fine Original Pen Needle) apixaban 5 mg tablet (Eliquis) 5 mg PO .Q12HR 02/21/25 04/01/25 History furosemide 20 mg tablet 20 mg PO .T,TH,S 02/21/25 04/01/25 History furosemide 40 mg tablet 40 mg PO .MWFS 02/21/25 04/01/25 History hydralazine 25 mg tablet 25 mg PO TID 02/21/25 04/01/25 History levothyroxine 100 mcg tablet See Rx Instructions .Route 03/12/25 04/01/25 Rx .COMPLEX #90 tabs atorvastatin 10 mg tablet 10 mg PO QHS 03/28/25 04/01/25 History baclofen 5 mg tablet 5 mg PO TID 03/28/25 04/01/25 History carvedilol 12.5 mg tablet (Coreg) 12.5 mg PO BID 03/28/25 04/01/25 History cholecalciferol (vitamin D3) 25 25 mcg PO DAILY 03/28/25 04/01/25 History mcg (1,000 unit) capsule (Vitamin D3) folic acid 1 mg tablet 1 mg PO DAILY 03/28/25 04/01/25 History hydrocodone 5 mg-acetaminophen 325 1 tablet PO Q4H PRN pain 03/28/25 04/01/25 History mg tablet insulin aspart U-100 100 unit/mL 1 sliding scale dose subcut 03/28/25 04/01/25 History (3 mL) subcutaneous pen USEASDIRECTD melatonin 3 mg capsule 3 mg PO HS PRN sleep 03/28/25 04/01/25 History multivitamin 1 tablet PO DAILY 03/28/25 04/01/25 History polyethylene glycol 3350 17 17 g PO DAILY PRN constipation 03/28/25 04/01/25 History gram/dose oral powder (Miralax) sertraline 50 mg tablet 50 mg PO DAILY 03/28/25 04/01/25 History sevelamer carbonate 0.8 gram oral 0.8 g PO TID 03/28/25 04/01/25 History powder packet (Renvela) sodium bicarbonate 650 mg tablet 650 mg PO TID 03/28/25 04/01/25 History amitriptyline 25 mg tablet 25 mg PO HS 03/30/25 04/01/25 History glimepiride 1 mg tablet 2 mg PO DAILY 04/01/25 04/01/25 History losartan 25 mg tablet 25 mg PO DAILY 04/01/25 04/01/25 History metoprolol tartrate 50 mg tablet 50 mg PO BID 04/01/25 04/01/25 History Allergies Allergy/AdvReac Type Severity Reaction Status Date / Time Sulfa (Sulfonamide Allergy Unknown Rash Verified 04/01/25 22:48 Antibiotics) Vital Signs Vital Signs - 24 hr 04/01/25 13:22 04/01/25 14:22 04/01/25 15:26 Temperature Pulse Rate 68 63 61 Respiratory Rate 17 14 19 Blood Pressure 173/84 H 148/83 H 170/63 H Pulse Oximetry 98 98 100 Oxygen Delivery 04/01/25 16:18 04/01/25 18:26 04/01/25 20:41 Temperature 97.8 F Pulse Rate 61 67 70 Respiratory Rate 16 15 14 Blood Pressure 170/63 H 158/77 H 141/71 H Pulse Oximetry 99 97 100 Oxygen Delivery 04/01/25 20:41 04/01/25 21:28 04/01/25 22:46 Temperature 98.4 F Pulse Rate 70 73 66 Respiratory Rate 14 16 Blood Pressure 141/71 H 155/68 H Pulse Oximetry 97 Oxygen Delivery 04/01/25 22:50 04/02/25 00:00 04/02/25 04:00 Temperature Pulse Rate 66 68 76 Respiratory Rate 16 Blood Pressure Pulse Oximetry 97 Oxygen Delivery Room Air 04/02/25 06:00 04/02/25 08:00 04/02/25 08:00 Temperature 98.3 F Pulse Rate 93 78 Respiratory Rate 12 Blood Pressure 120/53 L Pulse Oximetry 100 Oxygen Delivery Room Air Exam Narrative: Patient is awake and nearly constantly talking and sometimes repeats everything I say to her daughter or vertebra daughter stays similar to echolalia. She has her legs up in the air and she seems like she is responding to hallucinations. Patient appears to be in a state of delirium at this time. Unable to cooperate. She is however able to move all 4 limbs. There is no facial asymmetry. No evidence of external trauma. Examination was limited since he could not cooperate any further. No involuntary movements are seen. Results Labs 04/02/25 05:46 04/02/25 05:46 Labs: Short CBC 04/02/25 Range/Units 05:46 WBC 11.1 H (4.5-10.0) K/mm3 Hgb 8.6 L (12.0-15.0) g/dL Hct 27.4 L (37.0-47.0) % Plt Count 271 (150-375) k/mm3 [facility] 04/02/25 05:46 Sodium 139 Potassium 4.6 Chloride 107 Carbon Dioxide 22 BUN 43 H Creatinine 2.74 H Glucose 102 Calcium 10.5 H Imaging Attestation: I personally reviewed and interpreted this imaging study as follows: (Carotid duplex scanning and CT scan of brain) My impression: Carotid duplex scanning shows moderate calcified plaquing in the region above the bifurcation on the left side. Mild changes were noted on the right side. CT scan of brain did not show any evidence of acute abnormality however moderate degree of atrophy was noted. Radiologist's impression: Same
--- NOTE | 2025-04-02 13:07 | P.CDI_ITS ---
CDI Query Clarification Request Neurology mentioned possibility of metabolic encephalopathy, Please clarify if metabolic encephalopathy should be ruled in or ruled out. Neurology: Assessment and plan (1) AMS (altered mental status): Code(s): R41.82 - Altered mental status, unspecified Status: Acute (2) Cervical cord compression with myelopathy: Code(s): G95.20 - Unspecified cord compression Status: Acute Assessment and Plan: As noted above she has had a surgery on cervical spine and 02/28/2025 at [facility]. She had a spinal fusion done from C3-C7. 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 She has a urinary tract infection with ESBL and she is on meropenem. In addition she also has had an acute CVA identified on MRI of the brain performed at [facility] prior to transfer to rehab. S partial complex seizures postictal state or encephalitis or drug-induced side effects were considered in the differential diagnosis. <Latia Prescott RN - Last Filed: 04/02/25 14:21> Provider Comments per PAS, she did have hx of Encephalopathy, Encephalopathy is likely a combination of medication induced and in the setting of acute stroke <Verónica Solano APRN - Last Filed: 04/02/25 13:29>
[2025-04-02] MEDS: cefTRIAXone 2 GM in SODIUM CHLORIDE 0.9% IV 100 ML 200 ML IVPB (13:13)
[2025-04-02] MEDS: VALPROATE SODIUM INJ 250 MG in DEXTROSE 5% IN WATER 50 ML 52.5 MG IVPB (13:19)
[2025-04-02 13:30] LABS: Thyroid Stimulating Hormone 6.020 uIU/mL (0.465-4.680); Total Triiodothyronine (T3) 1.30 NG/ML (0.82-1.58)
[2025-04-02 14:06] LABS: Vitamin B12 370.0 pg/mL (239-931)
--- NOTE | 2025-04-02 15:40 | PM.TDS ---
Transfer Discharge Sum: Prov Provider Date of admission: 04/01/25 19:50 Primary care physician: Maxime Henning MD Admitting clinician: Melissa Larkin MD Consults: 04/01/25 Consult to Physician Routine Comment: spoke to [phone] Consulting Provider: Heavenly Henry Reason for consultation: new aphasia; h/o recent CVA Has provider been notified: Yes Receiving physician/facility: Bridget Solano NP 04/02/2025 [facility] DS: Admitting Diagnosis Discharge Date 04/02/2025 Admitting Diagnosis Aphasia, Acute UTI DS: Discharge Diagnosis Discharge Diagnosis (1) UTI (urinary tract infection): Code(s): N39.0 - Urinary tract infection, site not specified Status: Acute Transfer Discharge Sum: Med Medications Active and Home Medications: Home Medications blood-glucose meter #1 ea 04/24/21 [Rx Confirmed 04/01/25] lancets #100 ea 04/24/21 [Rx Confirmed 04/01/25] diltiazem HCl 120 mg capsule,extended release 24 hr 120 mg PO DAILY #90 caps 04/15/22 [Rx Confirmed 04/01/25] blood sugar diagnostic (OneTouch Ultra Test strips) #100 ea 05/09/24 [Rx Confirmed 04/01/25] pen needle, diabetic 29 gauge x 1/2 (BD Ultra-Fine Original Pen Needle) #100 ea 05/10/24 [Rx Confirmed 04/01/25] apixaban 5 mg tablet (Eliquis) 5 mg PO .Q12HR 02/21/25 [History Confirmed 04/01/25] furosemide 20 mg tablet 20 mg PO .T,TH,S 02/21/25 [History Confirmed 04/01/25] furosemide 40 mg tablet 40 mg PO .MWFS 02/21/25 [History Confirmed 04/01/25] hydralazine 25 mg tablet 25 mg PO TID 02/21/25 [History Confirmed 04/01/25] levothyroxine 100 mcg tablet See Rx Instructions .Route .COMPLEX #90 tabs 03/12/25 [Rx Confirmed 04/01/25] atorvastatin 10 mg tablet 10 mg PO QHS 03/28/25 [History Confirmed 04/01/25] baclofen 5 mg tablet 5 mg PO TID 03/28/25 [History Confirmed 04/01/25] carvedilol 12.5 mg tablet (Coreg) 12.5 mg PO BID 03/28/25 [History Confirmed 04/01/25] cholecalciferol (vitamin D3) 25 mcg (1,000 unit) capsule (Vitamin D3) 25 mcg PO DAILY 03/28/25 [History Confirmed 04/01/25] folic acid 1 mg tablet 1 mg PO DAILY 03/28/25 [History Confirmed 04/01/25] hydrocodone 5 mg-acetaminophen 325 mg tablet 1 tablet PO Q4H PRN pain 03/28/25 [History Confirmed 04/01/25] insulin aspart U-100 100 unit/mL (3 mL) subcutaneous pen 1 sliding scale dose subcut USEASDIRECTD 03/28/25 [History Confirmed 04/01/25] melatonin 3 mg capsule 3 mg PO HS PRN sleep 03/28/25 [History Confirmed 04/01/25] multivitamin 1 tablet PO DAILY 03/28/25 [History Confirmed 04/01/25] polyethylene glycol 3350 17 gram/dose oral powder (Miralax) 17 g PO DAILY PRN constipation 03/28/25 [History Confirmed 04/01/25] sertraline 50 mg tablet 50 mg PO DAILY 03/28/25 [History Confirmed 04/01/25] sevelamer carbonate 0.8 gram oral powder packet (Renvela) 0.8 g PO TID 03/28/25 [History Confirmed 04/01/25] sodium bicarbonate 650 mg tablet 650 mg PO TID 03/28/25 [History Confirmed 04/01/25] amitriptyline 25 mg tablet 25 mg PO HS 03/30/25 [History Confirmed 04/01/25] glimepiride 1 mg tablet 2 mg PO DAILY 04/01/25 [History Confirmed 04/01/25] losartan 25 mg tablet 25 mg PO DAILY 04/01/25 [History Confirmed 04/01/25] metoprolol tartrate 50 mg tablet 50 mg PO BID 04/01/25 [History Confirmed 04/01/25] Active Medications Apixaban (Apixaban 5 Mg Tablet) 5 mg PO Q12HR [facility] Last Admin: 04/02/25 13:20 Dose: Not Given Aspirin (Aspirin 81 Mg Enteric Tablet) [facility] Last Admin: 04/02/25 01:38 Dose: 81 mg Atorvastatin Calcium (Atorvastatin 40 Mg Tablet) 80 mg PO DAILY [facility] Carvedilol (Carvedilol 12.5 Mg Tablet) 12.5 mg PO Q12HR [facility] On Hold: 04/02/25 01:21 Last Admin: 04/01/25 21:28 Dose: 12.5 mg Dextrose (Dextrose 50% 25 Gm/50 Ml Syringe) 12.5 gm IV PUSH PRN PRN; Protocol PRN Reason: Hypoglycemia Diazepam (Diazepam Inj (*Crx) 10 Mg/2 Ml Syringe) 5 mg IV PUSH Q6H PRN PRN Reason: Agitation Diltiazem HCl (Diltiazem Hcl Cd 120 Mg Cap.24hr) 120 mg PO QAM [facility] On Hold: 04/02/25 01:21 Last Admin: 04/01/25 07:56 Dose: 120 mg Famotidine (Famotidine 20 Mg/2 Ml Vial) 20 mg IV PUSH Q12HR [facility] Last Admin: 04/02/25 13:20 Dose: Not Given Furosemide (Furosemide 40 Mg Tablet) 40 mg PO QAM [facility] On Hold: 04/02/25 01:21 Last Admin: 04/01/25 08:56 Dose: 40 mg Glucagon (Glucagon For Inj 1 Mg Vial) 1 mg IM PRN PRN; Protocol PRN Reason: Hypoglycemia Glucose (Glucose Oral Gel 15 Gm Of Glucse In 37.5 Gm Tube) 15 gm PO PRN PRN; Protocol PRN Reason: Hypoglycemia Hydralazine HCl (Hydralazine Hcl 25 Mg Tablet) 25 mg PO TID [facility] On Hold: 04/02/25 01:21 Last Admin: 04/01/25 18:10 Dose: 25 mg Dextrose (Dextrose 5% 1,000 Ml) 1,000 mls @ 100 mls/hr IVPB PRN PRN; Protocol PRN Reason: Hypoglycemia Valproate Sodium 250 mg/ (Dextrose) 52.5 mls @ 52.5 mls/hr IVPB Q6HR [facility] Last Admin: 04/02/25 13:19 Dose: 52.5 mls/hr Ceftriaxone Sodium 2 gm/ (Sodium Chloride) 100 mls @ 200 mls/hr IVPB DAILY [facility] Last Admin: 04/02/25 13:13 Dose: 200 mls/hr Insulin Aspart (Insulin Aspart (*Bkc) 100 Units/Ml) 3 - 6 units SUB-Q TIDWM [facility]; Protocol Last Admin: 04/02/25 11:50 Dose: Not Given Insulin Aspart (Insulin Aspart (*Bkc) 100 Units/Ml) 1 - 3 units SUB-Q HS [facility]; Protocol Last Admin: 04/01/25 21:20 Dose: Not Given Levothyroxine Sodium (Levothyroxine Sodium 100 Mcg Tablet) 100 mcg PO DAILY@0630 [facility] Last Admin: 04/02/25 05:31 Dose: 100 mcg Sertraline HCl (Sertraline Hcl 50 Mg Tablet) 50 mg PO QAM [facility] Last Admin: 04/01/25 07:58 Dose: 50 mg Sevelamer Carbonate (Sevelamer Carbonate 0.8 Gm Oral Powder Packet) 0.8 gm PO TIDWM [facility] Last Admin: 04/02/25 13:21 Dose: Not Given Transfer Discharge Sum: Hosp Hospital Course Hospital course: Yesica Marcial is a 75 year old female hx LUZ MARIA, Diabetes, CKD, Afib, UTI, recent spinal fusion C3-7 02/28/25 at [facility] and CVA 03/05 who was transferred to [facility] from rehab for aphasia and altered mental status Altered Mental status Delirium Hx CVA 03/05 Neurology consulted Delirium precautions 04/02 Neurology consulted, started Depakote and trialing a benzodiazepine. Discussed possiblity of LP with daughter, but family hesitant to stop AC with prior stroke off AC so can consider heparin drip or Lovenox after transfer. An EEG was done prior to transfer, on 04/02. Results pending. Patient talking to Donis during the EEG and making odd comments such as I'm in the toes, I'm in the toes. lighten my path No tremors or clear seizure activity. Hx Seizures Started Valproate UTI UA positive. Initially started on Meropenem empirically given hx of ESBL. No evidence of sepsis so changed to Ceftriaxone since interaction with Valproate that was started by neurology 04/02. No evidence of systemic infection. If Meropenem needed, will need to monitor Valproate levels closely. Urine culture pending at discharge Hx CVA 03/05 Neurology consulted Afib Rate controlled --continued metoprolol & apixaban (was also on carvedilol per rehab notes but did not give both). Can switch metoprolol to carvedilol if better control of blood pressure needed --Can consider switching from eliquis to heparin drip for possible lumbar puncture after transfer. Creatinine clearance 17 Patient Condition: Stable Time Spent with Patient Time attestation: Total time spent providing and/or coordinating transfer services: 65 minutes Exam Narrative: General - Awake and confused. Eyes - PERRLA, EOM intact ENT - No thrush, No erythema Neck - No noticeable or palpable swelling Lymph Nodes - No lymphadenopathy Cardiovascular - RRR no m/r/g, no JVD Lungs: Clear to auscultation, No wheezing, use of accessory muscles, no crackles or wheezes. Skin - Skin warm and dry, no wounds or rashes Abdomen - Normal bowel sounds, abdomen soft and nontender Extremities - No edema, cyanosis or clubbing Musculoskeletal - 5/5 strength, normal range of motion, no swollen or erythematous joints. Neurological ? Alert and oriented x 1, CN 2-12 grossly intact. Speech nonsensical Talking to Donis (not in the room) Able to move all 4 limbs. Face symmetric Psych: Bizarre conversation. Possible hallucinations DS: Data Data Completed and Pending Labs on day of discharge: Labs from last 24 hours 04/02/25 04/02/25 04/01/25 11:29 05:46 21:18 WBC 11.1 H RBC 2.93 L Hgb 8.6 L Hct 27.4 L MCV 93.5 MCH 29.4 MCHC 31.4 L RDW 13.0 Plt Count 271 MPV 9.8 Immature Gran % (Auto) 0.7 H Neut % (Auto) 72.3 Lymph % (Auto) 15.2 L Graham % (Auto) 7.9 Eos % (Auto) 3.4 Baso % (Auto) 0.5 Lymph # (Auto) 1.68 Graham # (Auto) 0.9 H Eos # (Auto) 0.4 H Baso # (Auto) 0.1 Abs Immat Gran (auto) 0.08 H Absolute Neuts (auto) 8.0 H Absolute Nucleated RBC 0.000 Nucleated RBC % 0.0 Sodium 139 Potassium 4.6 Chloride 107 Carbon Dioxide 22 Anion Gap 10 BUN 43 H Creatinine 2.74 H Estim Creat Clear Calc 17 Estimated GFR 17 L Glucose 102 POC Capillary Glucose 136 H 101 Calcium 10.5 H Magnesium 1.7 Vitamin B12 370.0 Folate 11.1 TSH 6.020 H Thyroxine (T4) 6.80 Total T3 1.30 04/01/25 17:09 WBC RBC Hgb Hct MCV MCH MCHC RDW Plt Count MPV Immature Gran % (Auto) Neut % (Auto) Lymph % (Auto) Graham % (Auto) Eos % (Auto) Baso % (Auto) Lymph # (Auto) Graham # (Auto) Eos # (Auto) Baso # (Auto) Abs Immat Gran (auto) Absolute Neuts (auto) Absolute Nucleated RBC Nucleated RBC % Sodium Potassium Chloride Carbon Dioxide Anion Gap BUN Creatinine Estim Creat Clear Calc Estimated GFR Glucose POC Capillary Glucose 163 H Calcium Magnesium Vitamin B12 Folate TSH Thyroxine (T4) Total T3 HPI - Altered Mental Status General Source: patient and family Mode of arrival: EMS Limitations: altered mental status Related Data Home Medications ?Medication ?Instructions ?Recorded ?Confirmed ?Last Taken ?Type apixaban 5 mg tablet (Eliquis) 5 mg PO .Q12HR 02/21/25 04/01/25 03/28/25 09:10 History furosemide 20 mg tablet 20 mg PO .T,TH,S 02/21/25 04/01/25 02/20/25 History furosemide 40 mg tablet 40 mg PO .MWFS 02/21/25 04/01/25 03/28/25 09:10 History hydralazine 25 mg tablet 25 mg PO TID 02/21/25 04/01/25 03/28/25 12:55 History atorvastatin 10 mg tablet 10 mg PO QHS 03/28/25 04/01/25 03/27/25 20:55 History baclofen 5 mg tablet 5 mg PO TID 03/28/25 04/01/25 Unknown History carvedilol 12.5 mg tablet (Coreg) 12.5 mg PO BID 03/28/25 04/01/25 03/28/25 09:10 History cholecalciferol (vitamin D3) 25 25 mcg PO DAILY 03/28/25 04/01/25 Unknown History mcg (1,000 unit) capsule (Vitamin D3) folic acid 1 mg tablet 1 mg PO DAILY 03/28/25 04/01/25 03/28/25 09:10 History hydrocodone 5 mg-acetaminophen 325 1 tablet PO Q4H PRN pain 03/28/25 04/01/25 Unknown History mg tablet insulin aspart U-100 100 unit/mL 1 sliding scale dose subcut 03/28/25 04/01/25 03/27/25 18:10 History (3 mL) subcutaneous pen USEASDIRECTD melatonin 3 mg capsule 3 mg PO HS PRN sleep 03/28/25 04/01/25 03/23/25 History multivitamin 1 tablet PO DAILY 03/28/25 04/01/25 Unknown History polyethylene glycol 3350 17 17 g PO DAILY PRN constipation 03/28/25 04/01/25 Unknown History gram/dose oral powder (Miralax) sertraline 50 mg tablet 50 mg PO DAILY 03/28/25 04/01/25 03/28/25 09:10 History sevelamer carbonate 0.8 gram oral 0.8 g PO TID 03/28/25 04/01/25 03/28/25 12:50 History powder packet (Renvela) sodium bicarbonate 650 mg tablet 650 mg PO TID 03/28/25 04/01/25 03/28/25 12:50 History amitriptyline 25 mg tablet 25 mg PO HS 03/30/25 04/01/25 Unknown History glimepiride 1 mg tablet 2 mg PO DAILY 04/01/25 04/01/25 Unknown History losartan 25 mg tablet 25 mg PO DAILY 04/01/25 04/01/25 Unknown History metoprolol tartrate 50 mg tablet 50 mg PO BID 04/01/25 04/01/25 Unknown History Allergies Allergy/AdvReac Type Severity Reaction Status Date / Time Sulfa (Sulfonamide Allergy Unknown Rash Verified 04/01/25 22:48 Antibiotics)
[2025-04-02] MEDS: ATORVASTATIN 40 MG TABLET 80 MG PO (17:25)
[2025-04-02] MEDS: SEVELAMER CARBONATE 0.8 GM ORAL POWDER PACKET PO (17:25)
[2025-04-02] MEDS: SERTRALINE HCL 50 MG TABLET PO (17:26)
[2025-04-02] MEDS: diazePAM INJ (*CRX) 10 MG/2 ML SYRINGE 5 MG IV PUSH (18:10)
--- NOTE | 2025-04-03 08:46 | WPDNEUROLOGY ---
Neurology EEG Report General Information Date of Study: 04/02/25 TEST EEG DIAGNOSIS Acute mental status changes CONDITION OF RECORDING awake drowsy and asleep. Patient cooperative, hallucis netting, and disoriented. EEG NUMBER [id number] CLINICAL HISTORY 75 years old female who is experiencing hallucinations and acute mental status changes. Patient was cooperative with redirection, but was seeing things and talking to people who were not there throughout the tracing and recording. Patient kept having random max of rapidly licking lips and inside of mouth. She would also have episodes where her head would fall, her mouth was open, and she would stop leaking or talking noted in EEG. EEG DESCRIPTION Background rhythm consists of low to medium voltage 5 to 7 hertz per 2nd theta activity admixed with low-voltage 15 to 18 hertz per 2nd beta activity and also evolving into bihemispheric sleep activity again admixed with multiple movements artifacts. photic stimulation not done. Hyperventilation not done. Non paroxysmal. Nonfocal. Non lateralizing. IMPRESSION Abnormal record due to the presence of bihemispheric slow activity without evidence of any paroxysmal discharge or focal element. Clinical correlation recommended these abnormalities are suggestive of diffuse organic or metabolic encephalopathy but again there is no evidence of any paroxysmal activity or focal element.
== END 2025-04-02 19:00 | disposition short-term general hospital (02) | DRG 91 ==
LOC: ANHED 04-01 20:06 → ANH3MEDSUR 04-01 22:15
PROVIDERS: Physician Assistant; Admitting Provider General Practice; Emergency Provider Emergency Medicine; PCP Family Medicine; Visit Provider Nurse Practitioner Acute Care
DX: R47.01 Aphasia (principal); G92.8 Other toxic encephalopathy; G93.49 Other encephalopathy; N39.0 Urinary tract infection, site not specified; I48.20 Chronic atrial fibrillation, unspecified; N18.4 Chronic kidney disease, stage 4 (severe); I12.9 Hypertensive chronic kidney disease with stage 1 through stage 4 chronic kidney disease, or unspecified chronic kidney disease; I65.22 Occlusion and stenosis of left carotid artery; E11.319 Type 2 diabetes mellitus with unspecified diabetic retinopathy without macular edema; E03.9 Hypothyroidism, unspecified; G47.33 Obstructive sleep apnea (adult) (pediatric); R29.701 NIHSS score 1; Z79.01 Long term (current) use of anticoagulants; Z79.4 Long term (current) use of insulin; Z86.73 Personal history of transient ischemic attack (TIA), and cerebral infarction without residual deficits; Z98.1 Arthrodesis status
CPT/HCPCS: 36415; 70450; 71045; 80048; 80053; 82607; 82746; 82948; 83735; 84436; 84443; 84480; 84484; 85025; 85610; 85730; 92610; 93005; 95816; 97162; 97166; 99285; A9270; J0696; J2185; J3360